=== PATIENT | female | born 1970 | race Caucasian/White ===

== ENCOUNTER 2018-06-02 21:18 | Emergency (ER) | payer OTHER ==
[2018-06-02] MEDS ORDERED: MORPHINE 4 MG/ML SYR ONE (22:12)
[2018-06-02] MEDS ORDERED: PROMETHAZINE 25 MG/ML VIAL ONE (22:12)
[2018-06-02] MEDS ORDERED: NA CHLORIDE 0.9% 1,000 ML ONE (22:13)
[2018-06-02 22:47] LABS: Urine Blood NEGATIVE (NEG); Urine Glucose NEGATIVE (NEG); Urine Protein NEGATIVE (NEG); Urine Specific Gravity 1.015 (1.005-1.030); Urine pH 6.5 (5.0-7.0)
[2018-06-02 23:02] LABS: Absolute Lymphocytes (CBC) 2.9 K/uL (0.7-4.9); Absolute Monocytes 0.7 K/uL (0.1-1.3); Absolute Neutrophil 6.5 K/uL (1.8-8.0); Basophils % 0.4 % (0-1.3); Eosinophils % 3.4 % (0-4.4); Hematocrit 33.6 % (36.0-45.0); Lymphocytes % 27.6 % (15.3-44.8); MCH 30.2 pg (27.0-35.0); MPV 7.7 fL (7.6-11.3); Monocytes % 6.7 % (3.3-12.3); RBC Red Blood Cell Count 3.82 M/uL (3.86-4.86)
[2018-06-02 23:11] LABS: ALT/SGPT 10 U/L (12-78); AST/SGOT 14 U/L (15-37); Alkaline Phosphatase 119 U/L (45-117); BUN Blood Urea Nitrogen 8 mg/dL (7-18); Bicarbonate 24 mmol/L (21-32); Bilirubin Total 0.1 mg/dL (0.2-1.0); Glucose Level 99 mg/dL (74-106); Potassium 3.3 mmol/L (3.5-5.1); Protein, Total 6.9 g/dL (6.4-8.2); Sodium Level 142 mmol/L (136-145)
--- NOTE | 2018-06-02 23:26 | EDPHYS ---
Physician Documentation [facility] Name: Lorie Beal Age: 48 yrs Sex: Female : 1970 Arrival Date: 06/02/2018 Time: 21:21 Bed 7 Private MD: Musa Aguirre T ED Physician Akira Romero HPI: 06/02 22:01 This 48 yrs old Female presents to ER via Ambulatory with complaints of miguel Headache. 22:01 The patient complains of pain to the forehead, left temporal area and right temporal miguel area. The patient describes the headache as constant. Onset: The symptoms/episode began/occurred this morning, today. Associated signs and symptoms: Pertinent positives: nausea, vomiting. Severity of symptoms: At its worst the pain was moderate, in the emergency department the pain is unchanged. Headache History: The patient has had previous headaches and this one is similar to previous episodes. The symptoms are alleviated by nothing. remaining still, the symptoms are aggravated by lights, movement, noise, stress. The patient has experienced similar episodes in the past, multiple times. 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/2017, pt stated cycles are irregular ak1 Historical: - Allergies: 21:49 prasterone (DHEA); ak1 21:49 Stadol; ak1 21:49 Zoloft; ak1 21:49 Toradol; ak1 21:49 Zofran; ak1 - Home Meds: 21:49 Ziac 5-6.25 mg Oral tab 1 tab once daily [Active]; Valium 5 mg Oral tab PRN Pain ak1 [Active]; Promethazine Oral [Active]; paroxetine Oral [Active]; Norvasc 5 mg Oral tab 1 tab once daily [Active]; losartan Oral [Active]; lisinopril Oral 1 tab once daily [Active]; diazepam Oral [Active]; amlodipine oral [Active]; - PMHx: 21:49 Hypertension; Migraines; ak1 - PSHx: 21:49 Cholecystectomy; ; ak1 - Immunization history:: Adult Immunizations unknown. - Social history:: Smoking status: Patient/guardian denies using tobacco. - Ebola Screening: : No symptoms or risks identified at this time. - Family history:: not pertinent. ROS: 22:01 Constitutional: Negative for fever, chills, and weight loss, Eyes: Negative for injury, miguel pain, redness, and discharge, ENT: Negative for injury, pain, and discharge, Neck: Negative for injury, pain, and swelling, Cardiovascular: Negative for chest pain, palpitations, and edema, Respiratory: Negative for shortness of breath, cough, wheezing, and pleuritic chest pain, Abdomen/GI: Negative for abdominal pain, nausea, vomiting, diarrhea, and constipation, Back: Negative for injury and pain, : Negative for injury, bleeding, discharge, and swelling, MS/Extremity: Negative for injury and deformity, Skin: Negative for injury, rash, and discoloration, Psych: Negative for depression, anxiety, suicide ideation, homicidal ideation, and hallucinations, Allergy/Immunology: Negative for hives, rash, and allergies, Endocrine: Negative for neck swelling, polydipsia, polyuria, polyphagia, and marked weight changes, Hematologic/Lymphatic: Negative for swollen nodes, abnormal bleeding, and unusual bruising. 22:01 Neuro: Positive for headache. Exam: 22:01 Constitutional: This is a well developed, well nourished patient who is awake, alert, miguel and in no acute distress. Head/Face: Normocephalic, atraumatic. Eyes: Pupils equal round and reactive to light, extra-ocular motions intact. Lids and lashes normal. Conjunctiva and sclera are non-icteric and not injected. Cornea within normal limits. Periorbital areas with no swelling, redness, or edema. ENT: Nares patent. No nasal discharge, no septal abnormalities noted. Tympanic membranes are normal and external auditory canals are clear. Oropharynx with no redness, swelling, or masses, exudates, or evidence of obstruction, uvula midline. Mucous membranes moist. Neck: Trachea midline, no thyromegaly or masses palpated, and no cervical lymphadenopathy. Supple, full range of motion without nuchal rigidity, or vertebral point tenderness. No Meningismus. Chest/axilla: Normal chest wall appearance and motion. Nontender with no deformity. No lesions are appreciated. Cardiovascular: Regular rate and rhythm with a normal S1 and S2. No gallops, murmurs, or rubs. Normal PMI, no JVD. No pulse deficits. Respiratory: Lungs have equal breath sounds bilaterally, clear to auscultation and percussion. No rales, rhonchi or wheezes noted. No increased work of breathing, no retractions or nasal flaring. Abdomen/GI: Soft, non-tender, with normal bowel sounds. No distension or tympany. No guarding or rebound. No evidence of tenderness throughout. Back: No spinal tenderness. No costovertebral tenderness. Full range of motion. Pelvic Exam: Normal external genitalia. Speculum exam with closed cervical os, no discharge or bleeding noted. Bimanual exam with normal adnexa, no adnexal or cervical motion tenderness. Normal uterus. Skin: Warm, dry with normal turgor. Normal color with no rashes, no lesions, and no evidence of cellulitis. MS/ Extremity: Pulses equal, no cyanosis. Neurovascular intact. Full, normal range of motion. Neuro: Awake and alert, GCS 15, oriented to person, place, time, and situation. Cranial nerves II-XII grossly intact. Motor strength 5/5 in all extremities. Sensory grossly intact. Cerebellar exam normal. Normal gait. Vital Signs: 21:49 BP 145 / 94; Pulse 88; Resp 16; Temp 98.3; Pulse Ox 97% on R/A; Weight 83.91 kg (R); ak1 Height 5 ft. 1 in. (154.94 cm) (R); Pain 10/10; 22:49 BP 138 / 78; Pulse 88; Resp 16; Pulse Ox 96% on R/A; aa1 23:40 BP 146 / 96; Pulse 81; Resp 16; Pulse Ox 97% on R/A; Pain 5/10; aa1 21:49 Body Mass Index 34.96 (83.91 kg, 154.94 cm) ak MDM: 21:49 Patient medically screened. [facility] 22:03 Data reviewed: vital signs, nurses notes, lab test result(s). [facility] 06/02 21:59 Order name: CBC with Diff; Complete Time: 23:24 [facility] 06/02 21:59 Order name: Comprehensive Metabolic Panel; Complete Time: 23:24 [facility] 06/02 21:59 Order name: Urine Culture [facility] 06/02 22:41 Order name: Urine Dipstick--Ancillary (enter results); Complete Time: 23:24 [facility] 06/02 22:41 Order name: Urine --Ancillary (enter results); Complete Time: 23:24 [facility] 06/02 21:59 Order name: Urine Dipstick-Ancillary (obtain specimen); Complete Time: 22:39 [facility] 06/02 21:59 Order name: Urine Test (obtain specimen); Complete Time: 22:39 [facility] 06/02 23:25 Order name: PO challenge: juice; Complete Time: 23:41 [facility] Administered Medications: 22:25 Drug: NS 0.9% 1000 ml Route: IV; Rate: 1 bolus; Site: right forearm; aa1 23:42 Follow up: IV Status: Completed infusion aa1 22:25 Drug: Phenergan 12.5 mg Route: IVP; Site: right forearm; aa1 23:41 Follow up: Response: No adverse reaction; Nausea is decreased aa1 22:25 Drug: morphine 4 mg Route: IVP; Site: right forearm; aa1 23:41 Follow up: Response: No adverse reaction; Pain is decreased aa1 Disposition: 06/02/18 23:25 Discharged to Home. Impression: Migraine without aura, Essential (primary) hypertension, Hypokalemia. - Condition is Stable. - Discharge Instructions: Potassium Content of Foods, Migraine Headache, Recurrent Migraine Headache, Hypertension, Hypertension, Sylx-vs-Lrdb, Migraine Headache, Gnes-qi-Nkux, How to Take Your Blood Pressure, Gtmw-yg-Kitg, Recurrent Migraine Headache, Dnqf-vd-Kclk, Hypokalemia, Managing Your Hypertension. - Prescriptions for Fioricet with Codeine 50- 325-40-30 mg Oral capsule - take 1 capsule by ORAL route every 4 hours as needed not to exceed 6 capsules per 24hrs; 26 capsule. promethazine 25 mg Oral Tablet - take 1 tablet by ORAL route every 6 hours As needed; 20 tablet. - Work release form, Medication Reconciliation Form, Thank You Letter, Antibiotic Education, Prescription Opioid Use form. - Follow up: Musa Aguirre; When: 2 - 3 days; Reason: Recheck today's complaints, Continuance of care, Re-evaluation by your physician. Follow up: Pedro Cash; When: 2 - 3 days; Reason: Recheck today's complaints, Re-evaluation by your physician. - Problem is new. - Symptoms have improved. Signatures: Dispatcher [employer] EDAdeola Barksdale RN RN aa1 Akira Romero MD MD cha Krenek, Amber RN RN ak1 Corrections: (The following items were deleted from the chart) 23:25 23:25 06/02/2018 23:25 Discharged to Home. Impression: Migraine without aura; Essential miguel (primary) hypertension. Condition is Stable. Discharge Instructions: Migraine Headache, Recurrent Migraine Headache, Hypertension, Hypertension, Njaq-fv-Dydx, Migraine Headache, Qvxo-ma-Cyqr, How to Take Your Blood Pressure, Hjzg-wp-Hsbi, Recurrent Migraine Headache, Umwo-dp-Pkkm, Managing Your Hypertension. Prescriptions for Fioricet with Codeine 38-607-03-30 mg Oral capsule - take 1 capsule by ORAL route every 4 hours as needed not to exceed 6 capsules per 24hrs; 26 capsule, promethazine 25 mg Oral Tablet - take 1 tablet by ORAL route every 6 hours As needed; 20 tablet. and Forms are Medication Reconciliation Form, Thank You Letter, Antibiotic Education, Prescription Opioid Use. Follow up: Musa Aguirre; When: 2 - 3 days; Reason: Recheck today's complaints, Continuance of care, Re-evaluation by your physician. Follow up: Pedro Cash; When: 2 - 3 days; Reason: Recheck today's complaints, Re-evaluation by your physician. Problem is new. Symptoms have improved. miguel 23:44 23:25 06/02/2018 23:25 Discharged to Home. Impression: Migraine without aura; Essential aa1 (primary) hypertension; Hypokalemia. Condition is Stable. Discharge Instructions: Migraine Headache, Recurrent Migraine Headache, Hypertension, Hypertension, Voeb-vg-Rjnf, Migraine Headache, Lutk-sm-Jdvm, How to Take Your Blood Pressure, Ljzq-ki-Izcf, Recurrent Migraine Headache, Iego-ou-Gpik, Managing Your Hypertension. Prescriptions for Fioricet with Codeine [id number] mg Oral capsule - take 1 capsule by ORAL route every 4 hours as needed not to exceed 6 capsules per 24hrs; 26 capsule, promethazine 25 mg Oral Tablet - take 1 tablet by ORAL route every 6 hours As needed; 20 tablet. and Forms are Medication Reconciliation Form, Thank You Letter, Antibiotic Education, Prescription Opioid Use. Follow up: Musa Aguirre; When: 2 - 3 days; Reason: Recheck today's complaints, Continuance of care, Re-evaluation by your physician. Follow up: Pedro Cash; When: 2 - 3 days; Reason: Recheck today's complaints, Re-evaluation by your physician. Problem is new. Symptoms have improved. miguel
--- NOTE | 2018-06-02 23:26 | ER ---
Nurse's Notes [facility] Name: Lorie Beal Age: 48 yrs Sex: Female : 1970 Arrival Date: 06/02/2018 Time: 21:21 Bed 7 Private MD: Musa Aguirre T Diagnosis: Migraine without aura;Essential (primary) hypertension;Hypokalemia Presentation: 06/02 21:45 Presenting complaint: Patient states: headache since Friday night. pt stated she has ak1 been using promethazine and ibuprofen with no relief. pt stated she has hx migrantes, has no neurologist currently. Transition of care: patient was not received from another setting of care. Onset of symptoms was May 31, 2018. Risk Assessment: Do you want to hurt yourself or someone else? Patient reports no desire to harm self or others. Care prior to arrival: None. 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 AGENT: 21:49 LMP 11/2017, pt stated cycles are irregular ak1 Historical: - Allergies: 21:49 prasterone (DHEA); ak1 21:49 Stadol; ak1 21:49 Zoloft; ak1 21:49 Toradol; ak1 21:49 Zofran; ak1 - Home Meds: 21:49 Ziac 5-6.25 mg Oral tab 1 tab once daily [Active]; Valium 5 mg Oral tab PRN Pain ak1 [Active]; Promethazine Oral [Active]; paroxetine Oral [Active]; Norvasc 5 mg Oral tab 1 tab once daily [Active]; losartan Oral [Active]; lisinopril Oral 1 tab once daily [Active]; diazepam Oral [Active]; amlodipine oral [Active]; - PMHx: 21:49 Hypertension; Migraines; ak1 - PSHx: 21:49 Cholecystectomy; ; ak1 - Immunization history:: Adult Immunizations unknown. - Social history:: Smoking status: Patient/guardian denies using tobacco. - Ebola Screening: : No symptoms or risks identified at this time. - Family history:: not pertinent. Screenin:00 Abuse screen: Denies threats or abuse. Denies injuries from another. Nutritional aa1 screening: No deficits noted. Tuberculosis screening: No symptoms or risk factors identified. Fall Risk None identified. Assessment: 22:00 General: Appears in no apparent distress. comfortable, Behavior is calm, cooperative, aa1 appropriate for age. Pain: Complains of pain in right temporal area and left temporal area and forehead Pain currently is 9 out of 10 on a pain scale. Quality of pain is described as aching, throbbing, Pain began 2-3 days ago. Is continuous. Neuro: Level of Consciousness is awake, alert, obeys commands, Oriented to person, place, time, situation, Moves all extremities. Full function Gait is steady, Speech is normal, Pupils are PERRLA, Reports headache photophobia. Cardiovascular: Denies chest pain, diaphoresis, palpitations, shortness of breath. Respiratory: Airway is patent Respiratory effort is even, unlabored, Respiratory pattern is regular, symmetrical. GI: Reports nausea, vomiting. : No signs and/or symptoms were reported regarding the genitourinary system. EENT: No signs and/or symptoms were reported regarding the EENT system. Derm: Skin is intact, is healthy with good turgor, Skin is pink, warm \T\ dry. Musculoskeletal: Circulation, motion, and sensation intact. Capillary refill < 3 seconds. 23:43 Reassessment: Patient appears in no apparent distress at this time. Patient is alert, aa1 oriented x 3, equal unlabored respirations, skin warm/dry/pink. Discussed d/c \T\ f/u instructions with pt; denies questions or concerns at this time Patient states feeling better. Vital Signs: 21:49 BP 145 / 94; Pulse 88; Resp 16; Temp 98.3; Pulse Ox 97% on R/A; Weight 83.91 kg (R); ak1 Height 5 ft. 1 in. (154.94 cm) (R); Pain 10/10; 22:49 BP 138 / 78; Pulse 88; Resp 16; Pulse Ox 96% on R/A; aa1 23:40 BP 146 / 96; Pulse 81; Resp 16; Pulse Ox 97% on R/A; Pain 5/10; aa1 21:49 Body Mass Index 34.96 (83.91 kg, 154.94 cm) ak1 ED Course: 21:21 Patient arrived in ED. es 21:22 Musa Aguirre MD is Private Physician. es 21:47 Triage completed. ak1 21:49 Akira Romero MD is Attending Physician. [facility] 21:49 Arm band placed on Patient placed in an exam room, on a stretcher, Patient notified of ak1 wait time. 21:51 Patient has correct armband on for positive identification. Bed in low position. Call ak1 light in reach. Side rails up X 1. 22:03 Adeola Escalante, RN is Primary Nurse. aa1 22:25 Initial lab(s) drawn, by ar, sent to lab. Inserted saline lock: 22 gauge in right aa1 forearm, using aseptic technique. Blood collected. 22:30 Urine collected: clean catch specimen, clear. aa1 23:25 Musa Aguirre MD is Referral Physician. miguel 23:25 Pedro Cash MD is Referral Physician. [facility] 23:43 No provider procedures requiring assistance completed. IV discontinued, intact, aa1 bleeding controlled, No redness/swelling at site. Pressure dressing applied. Administered Medications: 22:25 Drug: NS 0.9% 1000 ml Route: IV; Rate: 1 bolus; Site: right forearm; aa1 23:42 Follow up: IV Status: Completed infusion aa1 22:25 Drug: Phenergan 12.5 mg Route: IVP; Site: right forearm; aa1 23:41 Follow up: Response: No adverse reaction; Nausea is decreased aa1 22:25 Drug: morphine 4 mg Route: IVP; Site: right forearm; aa1 23:41 Follow up: Response: No adverse reaction; Pain is decreased aa1 Outcome: 23:25 Discharge ordered by . miguel 23:43 Discharged to home ambulatory. aa1 23:43 Condition: good 23:43 Discharge instructions given to patient, Instructed on discharge instructions, follow up and referral plans. medication usage, Demonstrated understanding of instructions, follow-up care, medications, Prescriptions given X 2. 23:44 Patient left the ED. aa1 Signatures: Adeola Escalante, RN RN aa1 Akira Romero MD MD cha Salyer, Edna es Krenek, Amber RN RN ak1
[2018-06-02 23:51] VITALS: TEMP 98.3
[2018-06-02 23:52] VITALS: BP 138/78; O2SAT 96
== END 2018-06-02 23:44 | disposition home or self-care (01) ==
LOC: ER 21:18
DX: G43.009 Migraine without aura, not intractable, without status migrainosus (principal); I10 Essential (primary) hypertension; E87.6 Hypokalemia; Z88.5 Allergy status to narcotic agent; Z88.6 Allergy status to analgesic agent; Z88.8 Allergy status to other drugs, medicaments and biological substances
CPT/HCPCS: 36415; 80053; 81003; 81025; 85025; 87086; 87088; J2550; J7030; 96361; 96374; 96375; 99284

== ENCOUNTER 2018-10-11 11:06 | Emergency (ER) | payer OTHER ==
[2018-10-11] MEDS ORDERED: ENALAPRILAT 1.25 MG/ML VIAL IV ONE ×2 (12:16→13:06)
[2018-10-11] MEDS ORDERED: LISINOPRIL 5 MG TAB ONE (12:16)
--- NOTE | 2018-10-11 12:18 | RAD REPORT ---
EXAM DESCRIPTION: RAD - Chest Single View - 10/11/2018 12:02 pm CLINICAL HISTORY: Right-sided chest pain COMPARISON: October 2017 TECHNIQUE: AP portable chest image was obtained 1154 hours . FINDINGS: Lungs are clear. Heart and vasculature are normal. No measurable pleural effusion and no p neumothorax. No acute bony abnormality seen. No acute aortic findings suspected. IMPRESSION: No acute cardiopulmonary process. No significant interval change.
[2018-10-11 12:21] LABS: Absolute Lymphocytes (CBC) 2.1 K/uL (0.7-4.9); Absolute Monocytes 0.6 K/uL (0.1-1.3); Absolute Neutrophil 6.7 K/uL (1.8-8.0); Basophils % 1.7 % (0-1.3); Eosinophils % 6.1 % (0-4.4); Hematocrit 37.9 % (36.0-45.0); Lymphocytes % 20.4 % (15.3-44.8); MPV 8.1 fL (7.6-11.3); Monocytes % 5.8 % (3.3-12.3); RBC Red Blood Cell Count 4.36 M/uL (3.86-4.86)
[2018-10-11 12:22] LABS: Protime INR 1.03
[2018-10-11 12:45] LABS: ALT/SGPT 19 U/L (12-78); AST/SGOT 21 U/L (15-37); Albumin 3.7 g/dL (3.4-5.0); Alkaline Phosphatase 162 U/L (45-117); BUN Blood Urea Nitrogen 8 mg/dL (7-18); Bicarbonate 28 mmol/L (21-32); Bilirubin Direct < 0.1 mg/dL (0-0.2); Bilirubin Total 0.2 mg/dL (0.2-1.0); Glucose Level 94 mg/dL (74-106); Magnesium 1.6 mg/dL (1.8-2.4); NT PRO-BNP 28 pg/mL (<125); Potassium 3.3 mmol/L (3.5-5.1); Protein, Total 7.8 g/dL (6.4-8.2); Sodium Level 141 mmol/L (136-145); Troponin (Emerg Dept Use Only) < 0.02 ng/mL (0.0-0.045)
[2018-10-11 13:04] LABS: Blood Morphology Comment NOT SEEN (NOT SEEN); Platelet Estimate ADEQ
[2018-10-11] MEDS ORDERED: FENTANYL CITR 100 MCG/2 ML ONE (13:06)
--- NOTE | 2018-10-11 14:49 | ER ---
Nurse's Notes [facility] Name: Lorie Beal Age: 48 yrs Sex: Female : 1970 Arrival Date: 10/11/2018 Time: 11:07 Bed 18 Private MD: Musa Aguirre T Diagnosis: Chest pain, unspecified Presentation: 10/11 11:14 Presenting complaint: Patient states: Started having right sided chest pain last night, rb1 pain 10/10. C/o right arm weakness, and pain in the right side of her neck, and SOB. Transition of care: patient was not received from another setting of care. Onset of symptoms was October 10, 2018. Risk Assessment: Do you want to hurt yourself or someone else? Patient reports no desire to harm self or others. Care prior to arrival: None. 11:14 Method Of Arrival: Wheelchair rb1 11:14 Acuity: KATELYN 3 rb1 11:40 Initial Sepsis Screen: Does the patient meet any 2 criteria? HR > 90 bpm. No. Patient's em initial sepsis screen is negative. Does the patient have a suspected source of infection? No. Patient's initial sepsis screen is negative. Triage Assessment: 11:14 General: Appears uncomfortable, Behavior is calm, cooperative. Pain: Complains of pain rb1 in anterior aspect of right upper chest Pain radiates to right side of neck Pain currently is 10 out of 10 on a pain scale. Pain began 1 day ago. Neuro: Level of Consciousness is awake, alert, obeys commands, Oriented to person, place, time, situation, Reports weakness in right arm. Cardiovascular: Capillary refill < 3 seconds is brisk in bilateral fingers. Respiratory: Airway is patent Respiratory effort is even, unlabored, Respiratory pattern is regular, symmetrical. GI: Reports nausea. : No signs and/or symptoms were reported regarding the genitourinary system. Derm: Skin is pink, warm \T\ dry. Musculoskeletal: Range of motion: intact in all extremities. 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 N/A - Irregular menses rb1 Historical: - Allergies: 11:14 prasterone (DHEA); rb1 11:14 Stadol; rb1 11:14 Toradol; rb1 11:14 Zoloft; rb1 11:14 Zofran; rb1 - Home Meds: 11:14 Paxil 20 mg Oral tab 3 tabs once daily [Active]; rb1 11:57 amlodipine oral [Active]; diazepam Oral [Active]; lisinopril Oral 1 tab once daily la1 [Active]; losartan Oral [Active]; Norvasc 5 mg Oral tab 1 tab once daily [Active]; paroxetine Oral [Active]; Promethazine Oral [Active]; Valium 5 mg Oral tab PRN Pain [Active]; Ziac 5-6.25 mg Oral tab 1 tab once daily [Active]; - PMHx: 11:14 Hypertension; Migraines; rb1 - PSHx: 11:14 Cholecystectomy; ; rb1 - Immunization history:: Adult Immunizations up to date. - Ebola Screening: : Patient negative for fever greater than or equal to 101.5 degrees Fahrenheit, and additional compatible Ebola Virus Disease symptoms. Screenin:14 Abuse screen: Denies threats or abuse. Nutritional screening: No deficits noted. rb1 Tuberculosis screening: No symptoms or risk factors identified. 11:14 Fall Risk None identified. rb1 Assessment: 11:14 General: See triage assessment.. rb1 11:37 General: Appears in no apparent distress. uncomfortable, Behavior is calm, cooperative, em appropriate for age, Denies fever. Pain: Complains of pain in chest Pain radiates to right arm Quality of pain is described as tight Pain began 1 day ago. Neuro: Level of Consciousness is awake, alert, obeys commands, Oriented to person, place, time, situation, Reports headache Denies dizziness. Cardiovascular: Reports chest pain, nausea, shortness of breath, Patient's skin is warm and dry. Rhythm is sinus rhythm. Respiratory: Airway is patent Respiratory effort is even, unlabored, Respiratory pattern is regular, symmetrical. GI: Abdomen is flat. : No signs and/or symptoms were reported regarding the genitourinary system. Derm: Skin is intact, is healthy with good turgor, Skin is pink, warm \T\ dry. Musculoskeletal: Range of motion: intact in all extremities. 11:50 Reassessment: i agree with above assessment by Cyrus Kat LVN. iw 12:48 Reassessment: Patient appears in no apparent distress at this time. Patient and/or em family updated on plan of care and expected duration. Pain level reassessed. Patient is alert, oriented x 3, equal unlabored respirations, skin warm/dry/pink. pt reports chest pain, provider notified. 14:12 Reassessment: Patient appears in no apparent distress at this time. Patient and/or em family updated on plan of care and expected duration. Pain level reassessed. Patient is alert, oriented x 3, equal unlabored respirations, skin warm/dry/pink. rates pain 8/10 Patient states feeling better. 15:07 Reassessment: Patient appears in no apparent distress at this time. Patient and/or em family updated on plan of care and expected duration. Pain level reassessed. Patient is alert, oriented x 3, equal unlabored respirations, skin warm/dry/pink. Vital Signs: 11:14 BP 197 / 130; Pulse 96; Resp 20; Pulse Ox 98% on R/A; Weight 81.65 kg (R); Height 5 ft. rb1 1 in. (154.94 cm) (R); Pain 10/10; 11:39 BP 187 / 100; Pulse 95; Resp 21; Pulse Ox 99% on R/A; Pain 10/10; em 12:47 BP 160 / 106; Pulse 77; Resp 18; Pulse Ox 99% on R/A; em 14:00 BP 149 / 93; Pulse 80; Resp 18; Pulse Ox 99% on R/A; Pain 8/10; em 14:52 BP 145 / 85; Pulse 80; Resp 16; Pulse Ox 99% on R/A; Pain 10/10; em 11:14 Body Mass Index 34.01 (81.65 kg, 154.94 cm) rb1 ED Course: 11:07 Patient arrived in ED. sb2 11:07 Musa Aguirre MD is Private Physician. sb2 11:14 Patient has correct armband on for positive identification. Bed in low position. Call rb1 light in reach. Side rails up X 1. night monitor on. Pulse ox on. NIBP on. 11:14 Patient maintains SpO2 saturation greater than 95% on room air. rb1 11:19 Riky Morse MD is Attending Physician. gs 11:20 Triage completed. rb1 11:26 EKG done, by ED staff, reviewed by Riky Morse MD. jp3 11:27 Cyrus Kat LVN is Primary Nurse. em 11:40 Arm band placed on. em 11:51 Missed attempt(s): 20 gauge 22 gauge in left in right wrist. forearm. Bleeding jp3 controlled, band aid applied, catheter tip intact. 11:57 Warm blanket given. Pillow given. jp3 12:01 X-ray completed. Portable x-ray completed in exam room. Patient tolerated procedure sg4 well. 12:10 Initial lab(s) drawn, by me, sent to lab. Inserted saline lock: 22 gauge in left em antecubital area, using aseptic technique. Blood collected. 12:39 Lights dimmed. Warm blanket given. jp3 13:42 Repeat lab(s) drawn. by me, sent to lab. jp3 13:43 Troponin (emerg Dept Use Only) Sent. jp3 15:07 No provider procedures requiring assistance completed. IV discontinued, intact, em bleeding controlled, No redness/swelling at site. Pressure dressing applied. Administered Medications: 12:10 Drug: Norvasc 5 mg Route: PO; em 12:55 Follow up: Response: No adverse reaction; Blood pressure is unchanged em 12:15 Drug: Enalaprilat 1.25 mg Route: IV; Rate: calculated rate; Site: left antecubital; iw 12:55 Follow up: Response: No adverse reaction; Blood pressure is unchanged em 13:10 Drug: fentaNYL (PF) 50 mcg Route: IVP; Site: left antecubital; iw 14:11 Follow up: Response: No adverse reaction; Pain is decreased em 13:11 Drug: Enalaprilat 1.25 mg Route: IV; Rate: calculated rate; Site: left antecubital; iw 14:11 Follow up: Response: No adverse reaction; Blood pressure is lowered em 15:01 Drug: [place] 10 mg-325 mg 1 tabs Route: PO; iw 15:07 Follow up: Response: Medication administered at discharge. em Outcome: 14:48 Discharge ordered by . gs 15:10 Discharged to home ambulatory. em 15:10 Condition: good 15:10 Discharge instructions given to patient, Instructed on discharge instructions, follow up and referral plans. Demonstrated understanding of instructions, follow-up care. 15:11 Patient left the ED. em Signatures: Cyrus Kat, NARCOTICS INVESTIGATOR NARCOTICS INVESTIGATOR em Kristen Rouse RN RN iw Marlo Blue RN RN la1 Rossana Tyson RN RN rb1 Riky Morse MD MD Marybeth Torres Jacob jp3 Dalia Armendariz sg4 Corrections: (The following items were deleted from the chart) 12:49 12:47 BP 147 / 89; Pulse 77bpm; Resp 18bpm; Pulse Ox 99% RA; em em
--- NOTE | 2018-10-11 14:49 | EDPHYS ---
Physician Documentation [facility] Name: Lorie Beal Age: 48 yrs Sex: Female : 1970 Arrival Date: 10/11/2018 Time: 11:07 Bed 18 Private MD: Musa Aguirre T ED Physician Riky Morse PROFESSOR OF ENVIRONMENTAL SCIENCE: 10/11 11:14 LMP N/A - Irregular menses rb1 Historical: - Allergies: 11:14 prasterone (DHEA); rb1 11:14 Stadol; rb1 11:14 Toradol; rb1 11:14 Zoloft; rb1 11:14 Zofran; rb1 - Home Meds: 11:14 Paxil 20 mg Oral tab 3 tabs once daily [Active]; rb1 11:57 amlodipine oral [Active]; diazepam Oral [Active]; lisinopril Oral 1 tab once daily la1 [Active]; losartan Oral [Active]; Norvasc 5 mg Oral tab 1 tab once daily [Active]; paroxetine Oral [Active]; Promethazine Oral [Active]; Valium 5 mg Oral tab PRN Pain [Active]; Ziac 5-6.25 mg Oral tab 1 tab once daily [Active]; - PMHx: 11:14 Hypertension; Migraines; rb1 - PSHx: 11:14 Cholecystectomy; ; rb1 - Immunization history:: Adult Immunizations up to date. - Ebola Screening: : Patient negative for fever greater than or equal to 101.5 degrees Fahrenheit, and additional compatible Ebola Virus Disease symptoms. Vital Signs: 11:14 BP 197 / 130; Pulse 96; Resp 20; Pulse Ox 98% on R/A; Weight 81.65 kg (R); Height 5 ft. rb1 1 in. (154.94 cm) (R); Pain 10/10; 11:39 BP 187 / 100; Pulse 95; Resp 21; Pulse Ox 99% on R/A; Pain 10/10; em 12:47 BP 160 / 106; Pulse 77; Resp 18; Pulse Ox 99% on R/A; em 14:00 BP 149 / 93; Pulse 80; Resp 18; Pulse Ox 99% on R/A; Pain 8/10; em 14:52 BP 145 / 85; Pulse 80; Resp 16; Pulse Ox 99% on R/A; Pain 10/10; em 11:14 Body Mass Index 34.01 (81.65 kg, 154.94 cm) rb1 MDM: 11:33 Patient medically screened. 10/11 11:34 Order name: Basic Metabolic Panel 10/11 11:34 Order name: CBC with Diff 10/11 11:34 Order name: LFT's 10/11 11:34 Order name: Magnesium 10/11 11:34 Order name: NT PRO-BNP 10/11 11:34 Order name: PT-INR 10/11 11:34 Order name: Troponin (emerg Dept Use Only) 10/11 11:34 Order name: D-Dimer 10/11 12:24 Order name: Protime (+INR); Complete Time: 12:53 EDMS 10/11 12:24 Order name: D-Dimer; Complete Time: 12:53 EDMS 10/11 12:26 Order name: CBC with Automated Diff; Complete Time: 13:24 EDMS 10/11 12:45 Order name: Basic Metabolic Panel; Complete Time: 12:53 EDMS 10/11 12:45 Order name: Liver (Hepatic) Function; Complete Time: 12:53 EDMS 10/11 12:45 Order name: Troponin (Emerg Dept Use Only); Complete Time: 12:53 EDMS 10/11 11:34 Order name: XRAY Chest (1 view) 10/11 11:34 Order name: EKG; Complete Time: 11:35 10/11 11:34 Order name: Cardiac monitoring; Complete Time: 11:44 10/11 11:34 Order name: EKG - Nurse/Tech; Complete Time: 11:44 10/11 11:34 Order name: IV Saline Lock; Complete Time: 12:00 10/11 12:18 Order name: RAD; Complete Time: 12:53 EDMS 10/11 12:45 Order name: NT PRO-BNP; Complete Time: 12:53 EDMS 10/11 12:45 Order name: Magnesium; Complete Time: 12:53 EDMS 10/11 13:05 Order name: Manual Differential; Complete Time: 13:24 EDMS 10/11 13:25 Order name: Troponin (emerg Dept Use Only) 10/11 14:02 Order name: Troponin (Emerg Dept Use Only); Complete Time: 14:42 EDMS 10/11 11:34 Order name: Labs collected and sent; Complete Time: 12:00 10/11 11:34 Order name: O2 Per Protocol; Complete Time: 11:44 gs 10/11 11:34 Order name: O2 Sat Monitoring; Complete Time: 11:44 gs Administered Medications: 12:10 Drug: Norvasc 5 mg Route: PO; em 12:55 Follow up: Response: No adverse reaction; Blood pressure is unchanged em 12:15 Drug: Enalaprilat 1.25 mg Route: IV; Rate: calculated rate; Site: left antecubital; iw 12:55 Follow up: Response: No adverse reaction; Blood pressure is unchanged em 13:10 Drug: fentaNYL (PF) 50 mcg Route: IVP; Site: left antecubital; iw 14:11 Follow up: Response: No adverse reaction; Pain is decreased em 13:11 Drug: Enalaprilat 1.25 mg Route: IV; Rate: calculated rate; Site: left antecubital; iw 14:11 Follow up: Response: No adverse reaction; Blood pressure is lowered em 15:01 Drug: [place] 10 mg-325 mg 1 tabs Route: PO; iw 15:07 Follow up: Response: Medication administered at discharge. em Disposition: 10/11/18 14:48 Discharged to Home. Impression: Chest pain, unspecified. - Condition is Stable. - Discharge Instructions: Nonspecific Chest Pain. - Work release form, Medication Reconciliation Form, Thank You Letter, Antibiotic Education, Prescription Opioid Use form. - Follow up: Private Physician; When: 2 - 3 days; Reason: Re-evaluation by your physician. Addendum: 11/02/2018 12:59 Addendum: cc-chest pain hpi-onset night prior to date of service, located right side, g s worsens with movement of neck and deep breathing . says right arm feels heavy.+sob. nurses notes reviewed and agree pmh allergies reviewed sochx-lives at home. pe- vs hypertensive o/w vss gen-no distress, awake head- normal no mass ent- pharynx no erythema no mass cv-rrr no murmur p- lungs clear no distress gi- ab soft non tender skin no rash normal temp ms- nl pulses in extremities no edema or deformity. neuro-cn,motor,sensory no deficits psych-normal mood. EKG-NSR, no st changes nl intervals mdm-htn heart disease, cad, pe, ns chest pain course workup negative, pain resolved explained results need for followup. Signatures: Dispatcher [employer] EDMS Kat, Cyrus, REVIEW ENGINEER REVIEW ENGINEER em Kristen Rouse, RN RN iw Marlo Blue RN RN la1 Rossana Tyson, RN RN rb1 Riky Morse MD MD gs Corrections: (The following items were deleted from the chart) 10/11 14:47 14:43 EKG - Nurse/Tech ordered. [facility] 15:11 14:48 10/11/2018 14:48 Discharged to Home. Impression: Chest pain, unspecified. em Condition is Stable. Forms are Medication Reconciliation Form, Thank You Letter, Antibiotic Education, Prescription Opioid Use. Follow up: Private Physician; When: 2 - 3 days; Reason: Re-evaluation by your physician.
[2018-10-11] MEDS ORDERED: HYDROCODONE/APAP 5/325 MG TAB ONE (15:01)
[2018-10-11] MEDS ORDERED: HYDROCODONE/APAP 10/325 TAB ONE (15:07)
[2018-10-11 15:27] VITALS: O2SAT 99
[2018-10-11 15:28] VITALS: BP 145/85
--- NOTE | 2018-10-12 07:05 | EKG ---
Test Date: 2018-10-11 Test Time: 11:22:58 Personnel Research Psychologist: DANIKA MEASUREMENT RESULTS: Intervals: Rate: 85 WI: 154 QRSD: 70 QT: 398 QTc: 473 [place]: P: 61 WI: 154 QRS: 17 T: 7 INTERPRETIVE STATEMENTS: Normal sinus rhythm Nonspecific ST and T wave abnormality Prolonged QT Abnormal ECG Compared to ECG 09/26/2015 11:21:38 ST (T wave) deviation now present T-wave abnormality no longer present Electronically Signed On 10-12-18 07:04:26 GUINEA PIG BREEDER by Huy Warren
== END 2018-10-11 15:11 | disposition home or self-care (01) ==
LOC: ER 11:06
DX: R07.9 Chest pain, unspecified (principal); I10 Essential (primary) hypertension; Z88.5 Allergy status to narcotic agent; Z88.6 Allergy status to analgesic agent; Z88.8 Allergy status to other drugs, medicaments and biological substances
CPT/HCPCS: 36415; 71045; 80048; 80076; 83735; 83880; 84484 ×2; 85025; 85379; 85610; 93005; 96374; 96375; 99285; J3010

== ENCOUNTER 2018-11-01 08:23 | Emergency (ER) | payer OTHER ==
[2018-11-01] MEDS ORDERED: MORPHINE 4 MG/ML SYR ONE (09:19)
[2018-11-01] MEDS ORDERED: NA CHLORIDE 0.9% 1,000 ML ONE (09:19)
[2018-11-01] MEDS ORDERED: PROMETHAZINE 25 MG/ML VIAL ONE (09:19)
[2018-11-01] MEDS ORDERED: METRONIDAZOLE 500mg IVPB 500 MG/100 ML BAG IV ONE (09:20)
[2018-11-01] MEDS ORDERED: CIPROFLOXACIN 400mg IV 400 MG/200 ML BAG IV ONE (09:20)
[2018-11-01 09:21] LABS: Absolute Lymphocytes (CBC) 3.2 K/uL (0.7-4.9); Absolute Monocytes 0.6 K/uL (0.1-1.3); Absolute Neutrophil 4.3 K/uL (1.8-8.0); Basophils % 0.4 % (0-1.3); Eosinophils % 10.1 % (0-4.4); Hematocrit 38.5 % (36.0-45.0); Lymphocytes % 35.1 % (15.3-44.8); MPV 8.2 fL (7.6-11.3); Monocytes % 7.2 % (3.3-12.3); RBC Red Blood Cell Count 4.38 M/uL (3.86-4.86)
[2018-11-01 09:34] LABS: Urine Blood NEGATIVE (NEG); Urine Glucose NEGATIVE (NEG); Urine Protein NEGATIVE (NEG); Urine pH 6.5 (5.0-7.0)
[2018-11-01 09:35] LABS: ALT/SGPT 16 U/L (12-78); AST/SGOT 24 U/L (15-37); Albumin 3.6 g/dL (3.4-5.0); Alkaline Phosphatase 151 U/L (45-117); BUN Blood Urea Nitrogen 6 mg/dL (7-18); Bicarbonate 28 mmol/L (21-32); Bilirubin Direct < 0.1 mg/dL (0-0.2); Bilirubin Total 0.2 mg/dL (0.2-1.0); Glucose Level 98 mg/dL (74-106); Lipase 101 U/L (73-393); Potassium 3.1 mmol/L (3.5-5.1); Protein, Total 7.8 g/dL (6.4-8.2); Sodium Level 141 mmol/L (136-145)
[2018-11-01] MEDS ORDERED: KCL 20 MEQ/100 mL IVPB 20 MEQ/100 ML BAG IV ONE (10:34)
--- NOTE | 2018-11-01 11:18 | RAD REPORT ---
EXAM DESCRIPTION: CTAbdomen Pelvis W Contrast - 11/01/2018 11:03 am CLINICAL HISTORY: Abdominal pain. ABD PAIN COMPARISON: CT ABD PELVIS W CONTRAST dated 10/06/2015; CT ABD PELVIS W CONTRAST dated 08/07/2015; CT ABD PELVIS W CONTRAST dated 01/02/2015; CT ABD PELVIS W CONTRAST dated 03/23/2013 TECHNIQUE: Biphasic CT imaging of the abdomen and pelvis was performed with 100 ml non-ionic IV cont rast. All CT scans are performed using dose optimization technique as appropriate and may include automated exposure control or mA/KV adjustment according to patient size. FINDINGS: The lung bases are clear.Cholecystectomy clips. Small amount of gastroesophageal reflux se en. The liver, spleen, pancreas, adrenal glands and kidneys are within normal limits. No bowel obstruction, free air, free fluid or abscess. The appendix is normal. No evidence of signi ficant lymphadenopathy. No suspicious bony findings. IMPRESSION: No acute intra-abdominal or pelvic finding.
--- NOTE | 2018-11-01 12:38 | EDPHYS ---
Physician Documentation [facility] Name: Lorie Beal Age: 48 yrs Sex: Female : 1970 Arrival Date: 11/01/2018 Time: 08:28 Bed 7 Private MD: Musa Aguirre T ED Physician Akira Romero HPI: 11/01 08:54 This 48 yrs old Female presents to ER via Ambulatory with complaints of miguel Abdominal Pain, Migraine. 08:54 The patient complains of pain to the forehead, left temporal area and right temporal miguel area. The patient describes the headache as aching, constant. Onset: The symptoms/episode began/occurred 2 day(s) ago. The patient presents with abdominal pain in the left upper quadrant, in the left lower quadrant. Onset: The symptoms/episode began/occurred 3 day(s) ago. Associated signs and symptoms: The patient has no apparent associated signs or symptoms. Severity of symptoms: At its worst the pain was moderate, in the emergency department the pain is unchanged. The symptoms do not radiate. 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 - Social history:: Smoking status: Patient/guardian denies using tobacco. - Family history:: not pertinent. - Ebola Screening: : Patient negative for fever greater than or equal to 101.5 degrees Fahrenheit, and additional compatible Ebola Virus Disease symptoms Patient denies exposure to infectious person Patient denies travel to an Ebola-affected area in the 21 days before illness onset No symptoms or risks identified at this time. ROS: 08:54 Constitutional: Negative for fever, chills, and weight loss, Eyes: Negative for injury, miguel pain, redness, and discharge, ENT: Negative for injury, pain, and discharge, Neck: Negative for injury, pain, and swelling, Cardiovascular: Negative for chest pain, palpitations, and edema, Respiratory: Negative for shortness of breath, cough, wheezing, and pleuritic chest pain, Back: Negative for injury and pain, : Negative for injury, bleeding, discharge, and swelling, MS/Extremity: Negative for injury and deformity, Skin: Negative for injury, rash, and discoloration, Neuro: Negative for headache, weakness, numbness, tingling, and seizure, Psych: Negative for depression, anxiety, suicide ideation, homicidal ideation, and hallucinations, Allergy/Immunology: Negative for hives, rash, and allergies, Endocrine: Negative for neck swelling, polydipsia, polyuria, polyphagia, and marked weight changes, Hematologic/Lymphatic: Negative for swollen nodes, abnormal bleeding, and unusual bruising. 08:54 Abdomen/GI: Positive for abdominal pain, of the left upper quadrant and left lower quadrant. Exam: 08:54 Constitutional: This is a well developed, well nourished patient who is awake, alert, miguel and in no acute distress. Head/Face: Normocephalic, atraumatic. Eyes: Pupils equal round and reactive to light, extra-ocular motions intact. Lids and lashes normal. Conjunctiva and sclera are non-icteric and not injected. Cornea within normal limits. Periorbital areas with no swelling, redness, or edema. ENT: Nares patent. No nasal discharge, no septal abnormalities noted. Tympanic membranes are normal and external auditory canals are clear. Oropharynx with no redness, swelling, or masses, exudates, or evidence of obstruction, uvula midline. Mucous membranes moist. Neck: Trachea midline, no thyromegaly or masses palpated, and no cervical lymphadenopathy. Supple, full range of motion without nuchal rigidity, or vertebral point tenderness. No Meningismus. Chest/axilla: Normal chest wall appearance and motion. Nontender with no deformity. No lesions are appreciated. Cardiovascular: Regular rate and rhythm with a normal S1 and S2. No gallops, murmurs, or rubs. Normal PMI, no JVD. No pulse deficits. Respiratory: Lungs have equal breath sounds bilaterally, clear to auscultation and percussion. No rales, rhonchi or wheezes noted. No increased work of breathing, no retractions or nasal flaring. Back: No spinal tenderness. No costovertebral tenderness. Full range of motion. Female : Normal external genitalia. Skin: Warm, dry with normal turgor. Normal color with no rashes, no lesions, and no evidence of cellulitis. MS/ Extremity: Pulses equal, no cyanosis. Neurovascular intact. Full, normal range of motion. Neuro: Awake and alert, GCS 15, oriented to person, place, time, and situation. Cranial nerves II-XII grossly intact. Motor strength 5/5 in all extremities. Sensory grossly intact. Cerebellar exam normal. Normal gait. Psych: Awake, alert, with orientation to person, place and time. Behavior, mood, and affect are within normal limits. 08:54 Abdomen/GI: Inspection: distension, Bowel sounds: normal, Palpation: mild abdominal tenderness, moderate abdominal tenderness, in the left upper quadrant and left lower quadrant. 11:09 Neck: ROM/movement: is normal, no acute changes, limited range of motion, is not miguel appreciated, Meningeal signs: are not present, Kernig's sign is negative, Brudzinski's sign is negative. Vital Signs: 09:02 BP 132 / 83; Pulse 71; Resp 16; Temp 98.6; Pulse Ox 98% ; Weight 85.73 kg; Height 5 ft. bp 1 in. (154.94 cm); 10:00 BP 121 / 91; Pulse 71; Resp 12; Pulse Ox 99% on R/A; bp 11:39 BP 99 / 62; Pulse 76; Resp 14; Pulse Ox 97% ; bp 12:32 BP 97 / 65; Pulse 82; Resp 12; Pulse Ox 100% ; bp 13:34 BP 125 / 83; Pulse 80; Resp 14; Pulse Ox 99% ; bp 09:02 Body Mass Index 35.71 (85.73 kg, 154.94 cm) bp MDM: 08:33 Patient medically screened. miguel 08:56 Data reviewed: vital signs, nurses notes, lab test result(s), radiologic studies, plain miguel films. 11/01 08:49 Order name: Basic Metabolic Panel bp 11/01 08:49 Order name: CBC with Diff; Complete Time: 10:02 bp 11/01 08:49 Order name: Creatinine for Radiology; Complete Time: 10:02 bp 11/01 08:49 Order name: Hepatic Function; Complete Time: 10:02 bp 11/01 08:49 Order name: Lipase; Complete Time: 10:02 bp 11/01 08:49 Order name: Basic Metabolic Panel; Complete Time: 10:02 EDMS 11/01 08:53 Order name: Urine Dipstick--Ancillary (enter results); Complete Time: 10:02 ag 11/01 08:53 Order name: Urine --Ancillary (enter results); Complete Time: 10:02 ag 11/01 08:54 Order name: CT Abd/Pelvis - W/Contrast; Complete Time: 11:31 miguel 11/01 08:49 Order name: IV Saline Lock; Complete Time: 09:11 bp 11/01 08:49 Order name: Labs collected and sent; Complete Time: 09:11 bp 11/01 08:49 Order name: Urine Dipstick-Ancillary (obtain specimen); Complete Time: 09:02 bp 11/01 08:49 Order name: Urine Test (obtain specimen); Complete Time: 09:02 bp Administered Medications: 09:00 Drug: NS 0.9% 1000 ml Route: IV; Rate: 1 bolus; Site: left antecubital; bp 09:07 CANCELLED (Duplicate Order): Zofran 4 mg IVP once; over 2 minutes miguel 09:15 Drug: morphine 4 mg Route: IVP; Site: left antecubital; bp 09:27 Follow up: Response: No adverse reaction; Pain is decreased bp 09:15 Drug: Flagyl 500 mg Volume: 100 ml; Route: IVPB; Rate: 200 ml/hr; Infused Over: 30 bp mins; Site: left antecubital; 10:00 Follow up: IV Status: Completed infusion bp 09:15 Drug: Phenergan 12.5 mg Route: IVP; Site: left antecubital; bp 09:32 Follow up: Response: Nausea is decreased bp 10:00 Drug: Cipro 400 mg Volume: 200 ml; Route: IVPB; Infused Over: 60 mins; Site: left bp antecubital; 10:25 Drug: Potassium Chloride 20 mEq Route: IV; Rate: per protocol; Site: left antecubital; bp 13:33 Follow up: IV Status: Completed infusion; IV Intake: 100ml bp Disposition: 11/01/18 12:38 Discharged to Home. Impression: Diverticular disease of intestine, Abdominal tenderness, Migraine, Hypokalemia. - Condition is Stable. - Discharge Instructions: Abdominal Pain, Adult, High-Fiber Diet, Diverticulosis, Migraine Headache, Diverticulitis, Yzhj-om-Rxyk, Abdominal Pain, Adult, Aozu-ne-Uzmn, Migraine Headache, Nyao-yl-Xpfq. - Prescriptions for Fioricet with Codeine 50- 325-40-30 mg Oral capsule - take 1 capsule by ORAL route every 4 hours as needed not to exceed 6 capsules per 24hrs; 20 capsule. Bentyl 20 mg Oral Tablet - take 1 tablet by ORAL route every 6 hours As needed; 20 tablet. Flagyl 500 mg Oral Tablet - take 1 tablet by ORAL route every 6 hours for 7 days; 28 tablet. Cipro 500 mg Oral Tablet - take 1 tablet by ORAL route every 12 hours for 7 days; 14 tablet. - Medication Reconciliation Form, Thank You Letter, Antibiotic Education, Prescription Opioid Use, Work release form form. - Follow up: Musa Aguirre; When: 2 - 3 days; Reason: Recheck today's complaints, Continuance of care, Re-evaluation by your physician. Follow up: Pedro Cash; When: 2 - 3 days; Reason: Recheck today's complaints, Re-evaluation by your physician. Follow up: Marta Lovelace; When: 2 - 3 days; Reason: Recheck today's complaints, Re-evaluation by your physician. - Problem is new. - Symptoms have improved. Signatures: Dispatcher [employer] EDMS Akira Romero MD MD cha Peltier, Brian, RN RN bp Corrections: (The following items were deleted from the chart) 09:07 08:54 Zofran 4 mg IVP once; over 2 minutes ordered. miguel rivera 13:37 12:38 11/01/2018 12:38 Discharged to Home. Impression: Diverticular disease of bp intestine; Abdominal tenderness; Migraine; Hypokalemia. Condition is Stable. Discharge Instructions: Abdominal Pain, Adult, High-Fiber Diet, Migraine Headache, Diverticulitis, Cjae-tr-Spqg, Abdominal Pain, Adult, Wqho-xy-Lxoh, Migraine Headache, Zmdx-oy-Ypdu, Diverticulosis. Prescriptions for Fioricet with Codeine 73-511-22-30 mg Oral capsule - take 1 capsule by ORAL route every 4 hours as needed not to exceed 6 capsules per 24hrs; 20 capsule, Bentyl 20 mg Oral Tablet - take 1 tablet by ORAL route every 6 hours As needed; 20 tablet, Flagyl 500 mg Oral Tablet - take 1 tablet by ORAL route every 6 hours for 7 days; 28 tablet, Cipro 500 mg Oral Tablet - take 1 tablet by ORAL route every 12 hours for 7 days; 14 tablet. and Forms are Medication Reconciliation Form, Thank You Letter, Antibiotic Education, Prescription Opioid Use. Follow up: Musa Aguirre; When: 2 - 3 days; Reason: Recheck today's complaints, Continuance of care, Re-evaluation by your physician. Follow up: Pedro Cash; When: 2 - 3 days; Reason: Recheck today's complaints, Re-evaluation by your physician. Follow up: Marta Lovelace; When: 2 - 3 days; Reason: Recheck today's complaints, Re-evaluation by your physician. Problem is new. Symptoms have improved. miguel
--- NOTE | 2018-11-01 12:38 | ER ---
Nurse's Notes [facility] Name: Lorie Beal Age: 48 yrs Sex: Female : 1970 Arrival Date: 11/01/2018 Time: 08:28 Bed 7 Private MD: Musa Aguirre T Diagnosis: Diverticular disease of intestine;Abdominal tenderness;Migraine;Hypokalemia Presentation: 11/01 08:35 Presenting complaint: Patient states: LEFT FLANK PAIN AND MIGRAINE, H/O MIGRAINES. bp Transition of care: patient was not received from another setting of care. Onset of symptoms was October 30, 2018. Risk Assessment: Do you want to hurt yourself or someone else? Patient reports no desire to harm self or others. Initial Sepsis Screen: Does the patient meet any 2 criteria? No. Patient's initial sepsis screen is negative. Does the patient have a suspected source of infection? No. Patient's initial sepsis screen is negative. Care prior to arrival: None. 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 - Social history:: Smoking status: Patient/guardian denies using tobacco. - Family history:: not pertinent. - Ebola Screening: : Patient negative for fever greater than or equal to 101.5 degrees Fahrenheit, and additional compatible Ebola Virus Disease symptoms Patient denies exposure to infectious person Patient denies travel to an Ebola-affected area in the 21 days before illness onset No symptoms or risks identified at this time. Screenin:00 Abuse screen: Denies threats or abuse. Denies injuries from another. Nutritional bp screening: No deficits noted. Tuberculosis screening: No symptoms or risk factors identified. Fall Risk None identified. Assessment: 09:00 General: Appears in no apparent distress. uncomfortable, obese, Behavior is bp cooperative, appropriate for age, anxious. Pain: Complains of pain in left lower quadrant and left upper quadrant and forehead. Neuro: Level of Consciousness is awake, alert, obeys commands, Oriented to person, place, time, situation, Appropriate for age. Cardiovascular: No deficits noted. Respiratory: Airway is patent Respiratory effort is even, unlabored, Respiratory pattern is regular, symmetrical. GI: Abdomen is obese, Bowel sounds present X 4 quads. Abd is soft X 4 quads. : No signs and/or symptoms were reported regarding the genitourinary system. EENT: No deficits noted. Derm: No deficits noted. Musculoskeletal: Circulation, motion, and sensation intact. Range of motion: intact in all extremities. 09:15 Reassessment: PT COMPLETED PO CONTRAST, CT NOTIFIED. bp 10:37 Reassessment: ACUTE S/S RESOLVED, CT PENDING, VS STABLE ON MONITOR. bp 11:40 Reassessment: PT RETURNED FROM CT, ALL CURRENT ORDERS COMPLETED. IVF INFUSING. bp 12:33 Reassessment: PT SLEEPING, VS STABLE. IVF INFUSING. bp 13:33 Reassessment: PT D/C HOME AMBULATORY, DX WITH ABDOMINAL PAIN AND MIGRAINE. bp Vital Signs: 09:02 BP 132 / 83; Pulse 71; Resp 16; Temp 98.6; Pulse Ox 98% ; Weight 85.73 kg; Height 5 ft. bp 1 in. (154.94 cm); 10:00 BP 121 / 91; Pulse 71; Resp 12; Pulse Ox 99% on R/A; bp 11:39 BP 99 / 62; Pulse 76; Resp 14; Pulse Ox 97% ; bp 12:32 BP 97 / 65; Pulse 82; Resp 12; Pulse Ox 100% ; bp 13:34 BP 125 / 83; Pulse 80; Resp 14; Pulse Ox 99% ; bp 09:02 Body Mass Index 35.71 (85.73 kg, 154.94 cm) bp ED Course: 08:28 Patient arrived in ED. sb2 08:28 Musa Aguirre MD is Private Physician. sb2 08:33 Akira Romero MD is Attending Physician. miguel 08:36 Krunal Zimmer, RN is Primary Nurse. bp 08:51 Triage completed. bp 09:00 Inserted saline lock: 18 gauge in left antecubital area, using aseptic technique. Blood bp collected. 09:00 Patient has correct armband on for positive identification. Bed in low position. Call bp light in reach. Side rails up X2. Adult w/ patient. 09:00 Arm band placed on. bp 11:01 CT completed. Patient tolerated procedure well. Patient moved back from CT. kw1 11:03 CT Abd/Pelvis - W/Contrast In Process Unspecified. EDMS 12:38 Musa Aguirre MD is Referral Physician. miguel 12:38 Pedro Cash MD is Referral Physician. miguel 12:38 Marta Lovelace MD is Referral Physician. miguel 12:56 Basic Metabolic Panel Sent. bp 13:35 No provider procedures requiring assistance completed. IV discontinued, intact, bp bleeding controlled, No redness/swelling at site. Pressure dressing applied. Administered Medications: 09:00 Drug: NS 0.9% 1000 ml Route: IV; Rate: 1 bolus; Site: left antecubital; bp 09:07 CANCELLED (Duplicate Order): Zofran 4 mg IVP once; over 2 minutes miguel 09:15 Drug: morphine 4 mg Route: IVP; Site: left antecubital; bp 09:27 Follow up: Response: No adverse reaction; Pain is decreased bp 09:15 Drug: Flagyl 500 mg Volume: 100 ml; Route: IVPB; Rate: 200 ml/hr; Infused Over: 30 bp mins; Site: left antecubital; 10:00 Follow up: IV Status: Completed infusion bp 09:15 Drug: Phenergan 12.5 mg Route: IVP; Site: left antecubital; bp 09:32 Follow up: Response: Nausea is decreased bp 10:00 Drug: Cipro 400 mg Volume: 200 ml; Route: IVPB; Infused Over: 60 mins; Site: left bp antecubital; 10:25 Drug: Potassium Chloride 20 mEq Route: IV; Rate: per protocol; Site: left antecubital; bp 13:33 Follow up: IV Status: Completed infusion; IV Intake: 100ml bp Intake: 13:33 IV: 100ml; Total: 100ml. bp Outcome: 12:38 Discharge ordered by . miguel 13:36 Discharged to home ambulatory. bp 13:36 Condition: stable 13:36 Discharge instructions given to patient, Instructed on discharge instructions, follow up and referral plans. medication usage, Demonstrated understanding of instructions, follow-up care, Prescriptions given X 4. 13:37 Patient left the ED. bp Signatures: Dispatcher [employer] EDKY Akira Romero MD MD cha Peltier, Brian RN RN bp Oanh Cole kw1 Marybeth Torres sb2
[2018-11-01 13:56] VITALS: TEMP 98.6
[2018-11-01 14:02] VITALS: BP 125/83; O2SAT 99
== END 2018-11-01 13:37 | disposition home or self-care (01) ==
LOC: ER 08:23
DX: K57.30 Diverticulosis of large intestine without perforation or abscess without bleeding (principal); G43.909 Migraine, unspecified, not intractable, without status migrainosus; E87.6 Hypokalemia; R10.12 Left upper quadrant pain; R10.32 Left lower quadrant pain; I10 Essential (primary) hypertension; F41.9 Anxiety disorder, unspecified; Z79.899 Other long term (current) drug therapy
CPT/HCPCS: 36415; 74177; 80048; 80076; 81003; 81025; 83690; 85025; 96365; 96366; 96367; 96375; 99284; J0744; J2550; J7030; Q9967

== ENCOUNTER 2019-05-08 01:17 | Emergency (ER) | payer OTHER ==
[2019-05-08] MEDS ORDERED: NA CHLORIDE 0.9% 1,000 ML ONE (02:41)
[2019-05-08] MEDS ORDERED: DIPHENHYDRAMINE 50 MG/ML VIAL ONE (02:41)
[2019-05-08] MEDS ORDERED: METOCLOPRAMIDE 10 MG/2mL INJ ONE (02:41)
--- NOTE | 2019-05-08 02:50 | EDPHYS ---
Physician Documentation [facility] Name: Lorie Beal Age: 49 yrs Sex: Female : 1970 Arrival Date: 05/08/2019 Time: 01:20 Bed 4 Private MD: Musa Aguirre T ED Physician Riky Morse HPI: 05/08 03:57 This 49 yrs old Female presents to ER via Ambulatory with complaints of gs Headache. 03:57 The patient complains of pain to the left mormon. The patient describes the headache as gs throbbing. Onset: The symptoms/episode began/occurred 3 day(s) ago. Associated signs and symptoms: Pertinent positives: vomiting. Severity of symptoms: At its worst the pain was severe, in the emergency department the pain is unchanged. Headache History: The patient has had previous headaches and this one is similar to previous episodes. The symptoms are alleviated by nothing. the symptoms are aggravated by nothing. The patient has experienced similar episodes in the past, chronically. 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 - Social history:: Smoking status: Patient/guardian denies using tobacco, never smoked. - Ebola Screening: : Patient negative for fever greater than or equal to 101.5 degrees Fahrenheit, and additional compatible Ebola Virus Disease symptoms Patient denies exposure to infectious person Patient denies travel to an Ebola-affected area in the 21 days before illness onset. ROS: 03:57 All other systems are negative. gs Exam: 03:57 Head/Face: Normocephalic, atraumatic. Eyes: Pupils equal round and reactive to light, gs extra-ocular motions intact. Lids and lashes normal. Conjunctiva and sclera are non-icteric and not injected. Cornea within normal limits. Periorbital areas with no swelling, redness, or edema. ENT: Nares patent. No nasal discharge, no septal abnormalities noted. Tympanic membranes are normal and external auditory canals are clear. Oropharynx with no redness, swelling, or masses, exudates, or evidence of obstruction, uvula midline. Mucous membranes moist. Neck: Trachea midline, no thyromegaly or masses palpated, and no cervical lymphadenopathy. Supple, full range of motion without nuchal rigidity, or vertebral point tenderness. No Meningismus. Chest/axilla: Normal chest wall appearance and motion. Nontender with no deformity. No lesions are appreciated. Cardiovascular: Regular rate and rhythm with a normal S1 and S2. No gallops, murmurs, or rubs. Normal PMI, no JVD. No pulse deficits. Respiratory: Lungs have equal breath sounds bilaterally, clear to auscultation and percussion. No rales, rhonchi or wheezes noted. No increased work of breathing, no retractions or nasal flaring. Abdomen/GI: Soft, non-tender, with normal bowel sounds. No distension or tympany. No guarding or rebound. No evidence of tenderness throughout. Back: No spinal tenderness. No costovertebral tenderness. Full range of motion. Skin: Warm, dry with normal turgor. Normal color with no rashes, no lesions, and no evidence of cellulitis. MS/ Extremity: Pulses equal, no cyanosis. Neurovascular intact. Full, normal range of motion. Neuro: Awake and alert, GCS 15, oriented to person, place, time, and situation. Cranial nerves II-XII grossly intact. Motor strength 5/5 in all extremities. Sensory grossly intact. Cerebellar exam normal. Normal gait. 03:57 Constitutional: The patient appears alert, awake. Vital Signs: 01:40 BP 135 / 71; Pulse 80; Resp 17; Temp 97.7; Pulse Ox 98% ; Weight 81.65 kg; Height 5 ft. tl1 0 in. (152.40 cm); Pain 10/10; 03:00 BP 119 / 71; Pulse 83; Resp 16; Pulse Ox 99% on R/A; lp1 01:40 Body Mass Index 35.15 (81.65 kg, 152.40 cm) tl1 MDM: 02:03 Patient medically screened. 03:57 Differential diagnosis: migraine, tension headache, vasomotor headache. Data reviewed: vital signs, nurses notes, old medical records. Counseling: I had a detailed discussion with the patient and/or guardian regarding: the historical points, exam findings, and any diagnostic results supporting the discharge/admit diagnosis. Response to treatment: the patient's symptoms have markedly improved after treatment, the patient's condition has returned to base line, and as a result, I will discharge patient. Administered Medications: 02:25 Drug: Reglan 10 mg Route: IVP; Site: left forearm; rr5 03:15 Follow up: Response: Marked relief of symptoms lp1 02:25 Drug: NS 0.9% 1000 ml Route: IV; Rate: 1 bolus; Site: left forearm; rr5 03:40 Follow up: IV Status: Completed infusion; IV Intake: 1000ml lp1 02:28 Drug: Benadryl 25 mg Route: IVP; Site: left forearm; rr5 03:15 Follow up: Response: Marked relief of symptoms lp1 Disposition: 05/08/19 02:49 Discharged to Home. Impression: Headache. - Condition is Stable. - Discharge Instructions: General Headache Without Cause, Migraine Headache. - Work release form, Medication Reconciliation Form, Thank You Letter, Antibiotic Education, Prescription Opioid Use form. - Follow up: Pedro Cash MD; When: 2 - 3 days; Reason: Re-evaluation by your physician. Signatures: Sadie Shell RN RN lp1 Christina Andrews RN RN tl1 Riky Morse MD MD Albert Stapleton RN RN rr5 Corrections: (The following items were deleted from the chart) 03:47 02:49 05/08/2019 02:49 Discharged to Home. Impression: Headache. Condition is Stable. lp1 Forms are Medication Reconciliation Form, Thank You Letter, Antibiotic Education, Prescription Opioid Use. Follow up: Pedro Cash; When: 2 - 3 days; Reason: Re-evaluation by your physician.
--- NOTE | 2019-05-08 02:50 | ER ---
Nurse's Notes [facility] Name: Lorie Beal Age: 49 yrs Sex: Female : 1970 Arrival Date: 05/08/2019 Time: 01:20 Bed 4 Private MD: Musa Aguirre T Diagnosis: Headache Presentation: 05/08 01:37 Presenting complaint: Patient states: I have a history of migraines and I started tl1 having a headache today that wont go away. Transition of care: patient was not received from another setting of care. Onset of symptoms was May 08, 2019. Risk Assessment: Do you want to hurt yourself or someone else? Patient reports no desire to harm self or others. Initial Sepsis Screen: Does the patient meet any 2 criteria? No. Patient's initial sepsis screen is negative. Does the patient have a suspected source of infection? No. Patient's initial sepsis screen is negative. Care prior to arrival: Medication(s) given: Motrin. 01:37 Method Of Arrival: Ambulatory tl1 01:37 Acuity: KATELYN 3 tl1 Triage Assessment: 02:00 Headache History: The patient has had previous headaches and this one is similar to lp1 previous episodes. 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 - Social history:: Smoking status: Patient/guardian denies using tobacco, never smoked. - Ebola Screening: : Patient negative for fever greater than or equal to 101.5 degrees Fahrenheit, and additional compatible Ebola Virus Disease symptoms Patient denies exposure to infectious person Patient denies travel to an Ebola-affected area in the 21 days before illness onset. Screenin:59 Abuse screen: Denies threats or abuse. Denies injuries from another. Nutritional lp1 screening: No deficits noted. Tuberculosis screening: No symptoms or risk factors identified. Fall Risk None identified. Assessment: 02:00 General: Appears uncomfortable, Behavior is appropriate for age. Pain: Complains of lp1 pain in head Pain currently is 10 out of 10 on a pain scale. Pain began 1 day ago. Also complains of nausea, photophobia, sleeplessness. Neuro: Level of Consciousness is awake, alert, obeys commands, Oriented to person, place, time, situation, Pupils are PERRLA, Reports dizziness, headache in entire photophobia. Cardiovascular: Patient's skin is warm and dry. Respiratory: Respiratory effort is even, unlabored. GI: Reports nausea. : No signs and/or symptoms were reported regarding the genitourinary system. EENT: No signs and/or symptoms were reported regarding the EENT system. Derm: Skin is pink, warm \T\ dry. Musculoskeletal: No deficits noted. 03:00 Reassessment: Patient aware of discharge, pending IV fluid completion. lp1 03:30 Reassessment: Patient is alert, oriented x 3, equal unlabored respirations, skin lp1 warm/dry/pink. Patient states feeling better. Patient states symptoms have improved. Vital Signs: 01:40 BP 135 / 71; Pulse 80; Resp 17; Temp 97.7; Pulse Ox 98% ; Weight 81.65 kg; Height 5 ft. tl1 0 in. (152.40 cm); Pain 10/10; 03:00 BP 119 / 71; Pulse 83; Resp 16; Pulse Ox 99% on R/A; lp1 01:40 Body Mass Index 35.15 (81.65 kg, 152.40 cm) tl1 ED Course: 01:20 Patient arrived in ED. mr 01:20 Musa Aguirre MD is Private Physician. mr 01:23 Riky Morse MD is Attending Physician. gs 01:38 Triage completed. tl1 01:41 Arm band placed on right wrist. tl1 02:00 Sadie Shell, NED is Primary Nurse. lp1 02:00 Patient has correct armband on for positive identification. lp1 02:16 Missed attempt(s): 22 gauge in left forearm. Missed attempt(s): 22 gauge in right lp1 antecubital area. 02:25 Inserted saline lock: 20 gauge in left forearm, using aseptic technique. rr5 02:49 Pedro Cash MD is Referral Physician. gs 03:03 No provider procedures requiring assistance completed. lp1 03:41 IV discontinued, No redness/swelling at site. Pressure dressing applied. lp1 Administered Medications: 02:25 Drug: Reglan 10 mg Route: IVP; Site: left forearm; rr5 03:15 Follow up: Response: Marked relief of symptoms lp1 02:25 Drug: NS 0.9% 1000 ml Route: IV; Rate: 1 bolus; Site: left forearm; rr5 03:40 Follow up: IV Status: Completed infusion; IV Intake: 1000ml lp1 02:28 Drug: Benadryl 25 mg Route: IVP; Site: left forearm; rr5 03:15 Follow up: Response: Marked relief of symptoms lp1 Intake: 03:40 IV: 1000ml; Total: 1000ml. lp1 Outcome: 02:49 Discharge ordered by MD. 03:46 Discharged to home ambulatory, with family. lp1 03:46 Condition: good 03:46 Discharge instructions given to patient, Instructed on discharge instructions, follow up and referral plans. Demonstrated understanding of instructions, follow-up care. 03:47 Patient left the ED. lp1 Signatures: Annemarie Faustin Laura, RN RN lp1 Christina Andrews RN RN tl1 Riky Morse MD MD Albert Stapleton RN RN rr5 Corrections: (The following items were deleted from the chart) 03:01 02:00 Pain: Complains of pain in head Pain currently is 10 out of 10 on a pain scale. lp1 lp1 03:01 02:00 Neuro: Level of Consciousness is awake, alert, obeys commands, Oriented to lp1 person, place, time, situation, Pupils are PERRLA, Reports dizziness, headache in entire photophobia lp1 03:02 02:00 Pain: Complains of pain in head Pain currently is 10 out of 10 on a pain scale. lp1 Also complains of nausea, photophobia, sleeplessness, lp1
[2019-05-08 04:01] VITALS: TEMP 97.7
[2019-05-08 04:02] VITALS: BP 119/71; O2SAT 99
== END 2019-05-08 03:47 | disposition home or self-care (01) ==
LOC: ER 01:17
DX: R51 Headache (principal); I10 Essential (primary) hypertension; F41.9 Anxiety disorder, unspecified; Z88.5 Allergy status to narcotic agent; Z88.6 Allergy status to analgesic agent; Z88.8 Allergy status to other drugs, medicaments and biological substances
CPT/HCPCS: 96361; 96375; 96374; 99283; J2765; J7030

== ENCOUNTER 2019-07-15 09:59 | Emergency (ER) | payer OTHER ==
[2019-07-15] MEDS ORDERED: PROMETHAZINE 25 MG/ML VIAL ONE (10:43)
[2019-07-15] MEDS ORDERED: NA CHLORIDE 0.9% 1,000 ML ONE (10:44)
[2019-07-15] MEDS ORDERED: MORPHINE 4 MG/ML SYR ONE (10:44)
[2019-07-15 10:54] LABS: Absolute Lymphocytes (CBC) 2.1 K/uL (0.7-4.9); Basophils % 0.4 % (0-1.3); Hematocrit 36.3 % (36.0-45.0); Lymphocytes % 30.6 % (15.3-44.8); MPV 7.9 fL (7.6-11.3); RBC Red Blood Cell Count 4.06 M/uL (3.86-4.86)
[2019-07-15 11:12] LABS: Albumin 3.9 g/dL (3.4-5.0); Bilirubin Direct 0.1 mg/dL (0-0.2); Bilirubin Total 0.3 mg/dL (0.2-1.0); Potassium 3.1 mmol/L (3.5-5.1)
--- NOTE | 2019-07-15 12:57 | RAD REPORT ---
EXAM DESCRIPTION: CT - Abdomen Pelvis W Contrast - 07/15/2019 12:44 pm CLINICAL HISTORY: left side abdominal painleft-sided abdominal pain, body ache, chills COMPARISON: October 2018 TECHNIQUE: Biphasic, helical CT imaging of the abdomen and pelvis was performed following 100 ml non -ionic IV contrast. No oral contrast given. All CT scans are performed using dose optimization technique as appropriate and may include automated exposure control or mA/KV adjustment according to patient size. FINDINGS: No suspicious findings in the lung bases. Liver attenuation is borderline to mildly fatty infiltrated. There are no focal liver lesions identif ied. Spleen and pancreas show no suspicious findings. Gallbladder is absent. No biliary tree dilatati on. Symmetric renal function is seen with no hydronephrosis or suspicious renal mass. No pyelonephritis o r acute parenchymal process. No bladder abnormalities. No adrenal abnormalities. Uterus and ovaries s how no suspicious findings. No dilated bowel loops or bowel wall thickening. No free air, free fluid or inflammatory stranding. No hernia, mass or bulky lymphadenopathy. No suspicious bony findings. Lower lumbar facet joint degenerative changes are present. No vascular abnormality seen. IMPRESSION: Contrast enhanced CT abdomen and pelvis showing no acute finding. Nonacute findings are detailed in the body of the report.
--- NOTE | 2019-07-15 13:36 | EDPHYS ---
Physician Documentation [facility] Name: Lorie Beal Age: 49 yrs Sex: Female : 1970 Arrival Date: 07/15/2019 Time: 10:02 Bed 14 Private MD: Musa Aguirre T ED Physician Teddy Guerra HPI: 07/15 10:20 This 49 yrs old Female presents to ER via Ambulatory with complaints of flare cp up, Abdominal Pain. 10:20 The patient presents with abdominal pain in the left lower quadrant. cp 10:20 Onset: The symptoms/episode began/occurred this morning. The symptoms do not radiate. cp Associated signs and symptoms: Pertinent positives: nausea and vomiting, diarrhea, Pertinent negatives: constipation, dysuria, fever. pain similar to when diagnosed with diverticulitis. 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 - Social history:: Smoking status: Patient/guardian denies using tobacco. - Ebola Screening: : Patient denies travel to an Ebola-affected area in the 21 days before illness onset. ROS: 10:30 Eyes: Negative for injury, pain, redness, and discharge. cp 10:30 Constitutional: Negative for body aches, chills, fever, poor PO intake. 10:30 ENT: Negative for drainage from ear(s), ear pain, sore throat, difficulty swallowing, cp difficulty handling secretions. 10:30 Cardiovascular: Negative for chest pain, palpitations. cp 10:30 Respiratory: Negative for cough, shortness of breath, wheezing. 10:30 Abdomen/GI: Positive for abdominal pain, nausea and vomiting, diarrhea, Negative for constipation, black/tarry stool, rectal bleeding. 10:30 : Negative for urinary symptoms, vaginal bleeding, vaginal discharge. 10:30 Skin: Negative for rash. 10:30 Neuro: Negative for altered mental status, dizziness, headache, weakness. 10:30 All other systems are negative. Exam: 10:45 Constitutional: The patient appears in no acute distress, alert, awake, non-toxic, well cp developed, well nourished, uncomfortable. 10:45 Head/Face: Normocephalic, atraumatic. cp 10:45 Eyes: Periorbital structures: appear normal, Conjunctiva: normal, no exudate, no injection, Sclera: no appreciated abnormality, Lids and lashes: appear normal, bilaterally. 10:45 ENT: External ear(s): are unremarkable, Nose: is normal, Mouth: Lips: moist, Oral mucosa: pink and intact, moist, Posterior pharynx: is normal, airway is patent, no erythema, no exudate. 10:45 Chest/axilla: Inspection: normal, Palpation: is normal, no crepitus, no tenderness. 10:45 Cardiovascular: Rate: normal, Rhythm: regular. 10:45 Respiratory: the patient does not display signs of respiratory distress, Respirations: normal, no use of accessory muscles, no retractions, no splinting, no tachypnea, labored breathing, is not present, Breath sounds: are clear throughout, no decreased breath sounds, no stridor, no wheezing. 10:45 Abdomen/GI: Inspection: abdomen appears normal, Bowel sounds: active, all quadrants, Palpation: soft, in all quadrants, moderate abdominal tenderness, in the left upper quadrant and left lower quadrant, rebound tenderness, is not appreciated, voluntary guarding, is elicited in the left upper quadrant and left lower quadrant. 10:45 Back: pain, is absent, ROM is normal. Vital Signs: 10:16 BP 198 / 104; Pulse 98; Resp 18; Temp 97.1; Pulse Ox 99% on R/A; Weight 79.38 kg (R); aj1 Height 5 ft. 1 in. (154.94 cm) (R); Pain 9/10; 11:33 BP 141 / 81; Pulse 98; Resp 18; Pulse Ox 100% on R/A; aj1 12:58 BP 128 / 63; Pulse 89; Resp 18; Pulse Ox 100% on R/A; aj1 14:00 BP 125 / 68; Pulse 88; Resp 18; Pulse Ox 100% on R/A; aj1 10:16 Body Mass Index 33.07 (79.38 kg, 154.94 cm) aj1 MDM: 10:14 Patient medically screened. 13:33 Data reviewed: vital signs, nurses notes, lab test result(s), radiologic studies, CT cp scan. 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 Special discussion: Based on the patient's Hx, exam, and Dx evaluation, there is no indication for emergent surgery or inpatient Tx. It is understood by the patient/guardian that if the Sx's persist or worsen they need to return immediately for re-evaluation. ED course: VSS. Pain and nausea improved. Will discharge to home for continued monitoring. 07/15 10:19 Order name: Basic Metabolic Panel 07/15 10:19 Order name: CBC with Diff 07/15 10:19 Order name: Creatinine for Radiology 07/15 10:19 Order name: Hepatic Function 07/15 10:19 Order name: Lipase 07/15 11:05 Order name: CBC with Automated Diff; Complete Time: 12:00 EDMS 07/15 11:18 Order name: Basic Metabolic Panel; Complete Time: 12:00 EDMS 07/15 12:00 Interpretation: Normal except: K 3.1; CL 111; GLUC 111; GFR 82. 07/15 11:18 Order name: Liver (Hepatic) Function; Complete Time: 12:00 EDMS 07/15 12:01 Interpretation: Normal except: ALK 122; GLOB 4.1; A/G 1.0. 07/15 11:18 Order name: Lipase; Complete Time: 12:00 EDMS 07/15 11:19 Order name: Creatinine (Radiology Only); Complete Time: 12:00 EDMS 07/15 12:53 Order name: Urine Dipstick--Ancillary (enter results) bd 07/15 12:53 Order name: Urine --Ancillary (enter results) bd 07/15 13:48 Order name: Urine --Ancillary EDSD 07/15 13:48 Order name: Urine Dipstick-Ancillary EDSD 07/15 10:19 Order name: IV Saline Lock; Complete Time: 10:58 cp 07/15 10:19 Order name: Labs collected and sent; Complete Time: 10:58 cp 07/15 10:19 Order name: CT Abd/Pelvis - IV Contrast Only cp 07/15 13:27 Order name: PO challenge cp Administered Medications: 10:58 Drug: Phenergan 25 mg Route: IVP; Site: right antecubital; [facility] 14:29 Follow up: Response: No adverse reaction [facility] 10:58 Drug: NS 0.9% 1000 ml Route: IV; Rate: 1 bolus; Site: right antecubital; [facility] 14:28 Follow up: IV Status: Completed infusion; IV Intake: 1000ml [facility] 10:59 Drug: morphine 4 mg {Note: RASS score 0- patient is alert.} Route: IVP; Site: right 1 antecubital; 12:00 Follow up: Response: No adverse reaction; Pain is decreased; RASS: Alert and Calm (0) [facility] Disposition: 07/16 07:57 Co-signature as Attending Physician, Teddy Guerra MD I agree with the assessment and kdr plan of care. Disposition: 07/15/19 13:34 Discharged to Home. Impression: Diverticular disease of intestine, part unspecified, without perforation or abscess, Lower abdominal pain, unspecified. - Condition is Stable. - Discharge Instructions: Abdominal Pain, Adult, Diverticulosis. - Prescriptions for Bentyl 20 mg Oral Tablet - take 2 tablets by ORAL route every 6 hours As needed; 30 tablet. Cipro 500 mg Oral Tablet - take 1 tablet by ORAL route every 12 hours for 10 days; 20 tablet. Paxil 20 mg Oral Tablet - take 3 tablet by ORAL route once daily .; 90 tablet. Metronidazole 500 mg Oral Tablet - take 1 tablet by ORAL route every 8 hours; 30 tablet. promethazine 25 mg Oral Tablet - take 1 tablet by ORAL route every 6 hours As needed; 20 tablet. - Work release form, Medication Reconciliation Form, Thank You Letter, Antibiotic Education, Prescription Opioid Use form. - Follow up: Marta Lovelace MD; When: 2 - 3 days; Reason: Recheck today's complaints. - Problem is an acute exacerbation. - Symptoms have improved. Signatures: Dispatcher [employer] Dasia Bedoya RN RN aj1 Teddy Guerra MD MD kdr Akira Dumont PA PA cp Corrections: (The following items were deleted from the chart) 07/15 14:30 13:34 07/15/2019 13:34 Discharged to Home. Impression: Diverticular disease of aj1 intestine, part unspecified, without perforation or abscess; Lower abdominal pain, unspecified. Condition is Stable. Forms are Medication Reconciliation Form, Thank You Letter, Antibiotic Education, Prescription Opioid Use. Follow up: Marta Lovelace; When: 2 - 3 days; Reason: Recheck today's complaints. Problem is an acute exacerbation. Symptoms have improved. cp
--- NOTE | 2019-07-15 13:36 | ER ---
Nurse's Notes [facility] Name: Lorie Beal Age: 49 yrs Sex: Female : 1970 Arrival Date: 07/15/2019 Time: 10:02 Bed 14 Private MD: Musa Aguirre T Diagnosis: Diverticular disease of intestine, part unspecified, without perforation or abscess;Lower abdominal pain, unspecified Presentation: 07/15 10:14 Presenting complaint: Patient states: Chills, Left upper and lower abdominal pain, aj1 nausea, vomiting and diarrhea for the past 7 days. Patient states that she has a history of diverticulitis and this feels similar to her previous flare ups. Transition of care: patient was not received from another setting of care. Onset of symptoms was 2018. Risk Assessment: Do you want to hurt yourself or someone else? Patient reports no desire to harm self or others. Initial Sepsis Screen: Does the patient meet any 2 criteria? HR > 90 bpm. No. Patient's initial sepsis screen is negative. Does the patient have a suspected source of infection? Yes: Acute abdominal pain. Care prior to arrival: None. 10:14 Method Of Arrival: Ambulatory aj1 10:14 Acuity: KATELYN 3 aj1 Triage Assessment: 10:16 General: Appears in no apparent distress. uncomfortable, Behavior is cooperative, aj1 anxious, crying. Pain: Complains of pain in left upper quadrant and left lower quadrant. GI: Reports diarrhea, nausea, vomiting. 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 - Social history:: Smoking status: Patient/guardian denies using tobacco. - Ebola Screening: : Patient denies travel to an Ebola-affected area in the 21 days before illness onset. Screenin:15 Abuse screen: Denies threats or abuse. Denies injuries from another. Nutritional aj1 screening: No deficits noted. Tuberculosis screening: No symptoms or risk factors identified. 14:27 Fall Risk None identified. aj1 Assessment: 10:15 General: Appears in no apparent distress. uncomfortable, Behavior is cooperative, aj1 anxious, crying. Pain: Complains of pain in left lower quadrant and left upper quadrant Pain does not radiate. Pain currently is 9 out of 10 on a pain scale. Quality of pain is described as sharp, Pain began 7 days ago. Neuro: Level of Consciousness is awake, alert, obeys commands, Oriented to person, place, time, situation. Cardiovascular: Patient's skin is warm and dry. Respiratory: Airway is patent Respiratory effort is even, unlabored, Respiratory pattern is regular, symmetrical. GI: Abdomen is non-distended, Bowel sounds present X 4 quads. Abd is soft X 4 quads Abdomen is tender to palpation in left upper quadrant and left lower quadrant Reports lower abdominal pain, upper abdominal pain, diarrhea, nausea, vomiting. : No signs and/or symptoms were reported regarding the genitourinary system. EENT: No signs and/or symptoms were reported regarding the EENT system. Derm: No signs and/or symptoms reported regarding the dermatologic system. Skin is pink, warm \T\ dry. normal. Musculoskeletal: No signs and/or symptoms reported regarding the musculoskeletal system. Circulation, motion, and sensation intact. 11:33 Reassessment: Patient appears in no apparent distress at this time. No changes from aj1 previously documented assessment. Patient and/or family updated on plan of care and expected duration. Pain level reassessed. Patient is alert, oriented x 3, equal unlabored respirations, skin warm/dry/pink. 12:58 Reassessment: Patient appears in no apparent distress at this time. No changes from aj1 previously documented assessment. Patient and/or family updated on plan of care and expected duration. Pain level reassessed. Patient is alert, oriented x 3, equal unlabored respirations, skin warm/dry/pink. 14:00 Reassessment: Patient appears in no apparent distress at this time. No changes from aj1 previously documented assessment. Patient and/or family updated on plan of care and expected duration. Pain level reassessed. Patient is alert, oriented x 3, equal unlabored respirations, skin warm/dry/pink. 14:00 Reassessment: PO challenge initiated. aj1 Vital Signs: 10:16 BP 198 / 104; Pulse 98; Resp 18; Temp 97.1; Pulse Ox 99% on R/A; Weight 79.38 kg (R); aj1 Height 5 ft. 1 in. (154.94 cm) (R); Pain 9/10; 11:33 BP 141 / 81; Pulse 98; Resp 18; Pulse Ox 100% on R/A; aj1 12:58 BP 128 / 63; Pulse 89; Resp 18; Pulse Ox 100% on R/A; aj1 14:00 BP 125 / 68; Pulse 88; Resp 18; Pulse Ox 100% on R/A; aj1 10:16 Body Mass Index 33.07 (79.38 kg, 154.94 cm) aj1 ED Course: 10:02 Patient arrived in ED. am2 10:02 Musa Aguirre MD is Private Physician. am2 10:13 Akira Dumont PA is PHCP. cp 10:13 Teddy Guerra MD is Attending Physician. cp 10:14 Dasia Starr, NED is Primary Nurse. aj1 10:15 Triage completed. aj1 10:15 Patient has correct armband on for positive identification. Bed in low position. Call aj1 light in reach. 10:15 No provider procedures requiring assistance completed. aj1 10:16 Arm band placed on Patient placed in an exam room. aj1 11:10 Inserted saline lock: 22 gauge in right antecubital area, using aseptic technique. aj1 13:33 Marta Lovelace MD is Referral Physician. cp 14:26 IV discontinued, intact, bleeding controlled, No redness/swelling at site. Pressure aj1 dressing applied. Administered Medications: 10:58 Drug: Phenergan 25 mg Route: IVP; Site: right antecubital; aj1 14:29 Follow up: Response: No adverse reaction aj1 10:58 Drug: NS 0.9% 1000 ml Route: IV; Rate: 1 bolus; Site: right antecubital; aj1 14:28 Follow up: IV Status: Completed infusion; IV Intake: 1000ml aj1 10:59 Drug: morphine 4 mg {Note: RASS score 0- patient is alert.} Route: IVP; Site: right aj1 antecubital; 12:00 Follow up: Response: No adverse reaction; Pain is decreased; RASS: Alert and Calm (0) aj1 Intake: 14:28 IV: 1000ml; Total: 1000ml. aj1 Outcome: 13:34 Discharge ordered by MD. huerta 14:29 Discharged to home ambulatory. aj1 14:29 Condition: good 14:29 Discharge instructions given to patient, Instructed on discharge instructions, follow up and referral plans. no drinking with medication, no driving heavy equipment, medication usage, Demonstrated understanding of instructions, follow-up care, medications, Prescriptions given X 5 14:30 Patient left the ED. aj1 Signatures: Dasia Starr RN RN aj1 Akira Dumont PA PA cp Moreno, Amanda amMalgorzata
[2019-07-15 13:45] LABS: Urine Blood NEGATIVE (NEG); Urine Glucose NEGATIVE (NEG); Urine Protein 2+ (NEG); Urine Specific Gravity 1.025 (1.005-1.030)
[2019-07-15 16:09] VITALS: TEMP 97.1
[2019-07-15 16:10] VITALS: O2SAT 100
[2019-07-15 16:13] VITALS: BP 125/68
== END 2019-07-15 14:30 | disposition home or self-care (01) ==
LOC: ER 09:59
DX: K57.90 Diverticulosis of intestine, part unspecified, without perforation or abscess without bleeding (principal); I10 Essential (primary) hypertension; Z88.6 Allergy status to analgesic agent; Z88.8 Allergy status to other drugs, medicaments and biological substances
CPT/HCPCS: 85025; 80048; 36415; 81025; 80076; 81003; 83690; 74177; 96375; 96374; 99283; Q9967; J2550; J7030

== ENCOUNTER 2023-07-08 07:31 | Emergency (ER) | payer OTHER, SELFPAY ==
[2023-07-08] MEDS ORDERED: HYDROMORPHONE HCL 1 MG/ML INJ ONE ×2 (08:15→10:17)
[2023-07-08 08:16] LABS: Absolute Lymphocytes (CBC) 1.9 K/uL (0.7-4.9); Lymphocytes % 17.3 % (15.3-44.8); MCV 84.5 fL (80-100); MPV 7.5 fL (7.6-11.3); Platelets 326 thou/uL (152-406); RBC Red Blood Cell Count 4.74 M/uL (3.86-4.86)
[2023-07-08] MEDS ORDERED: ONDANSETRON 4 MG/2 ML VIAL ONE (08:16)
[2023-07-08] MEDS ORDERED: NA CHLORIDE 0.9% 1,000 ML ONE (08:16)
[2023-07-08 08:42] LABS: Albumin 3.5 g/dL (3.4-5.0); Bilirubin Total 0.7 mg/dL (0.2-1.0); Protein, Total 7.9 g/dL (6.4-8.2)
[2023-07-08 08:49] LABS: Potassium 2.4 mEq/L (3.5-5.1)
[2023-07-08] MEDS ORDERED: POTASSIUM CL SA 10 MEQ TAB PO ONE (09:15)
[2023-07-08] MEDS ORDERED: KCL 20 MEQ/100 mL IVPB 100 ML IV ONE (09:15)
[2023-07-08] MEDS ORDERED: PROMETHAZINE INJ 25 MG/ML AMP ONE (10:16)
--- NOTE | 2023-07-08 11:05 | ER ---
Nurse's Notes [facility] Name: Lorie Beal Age: 53 yrs Sex: Female : 1970 Arrival Date: 07/08/2023 Time: 07:31 Bed 13 Private MD: Diagnosis: Migraine without aura, not intractable Presentation: 07/08 07:48 Chief complaint: Patient states: "I've had a migraine since Friday, N/V/D. I took a mb9 COVID test the other day and it was negative.". Coronavirus screen: Vaccine status: Patient reports receiving the 2nd dose of the covid vaccine. Ebola Screen: No symptoms or risks identified at this time. Initial Sepsis Screen: Does the patient meet any 2 criteria? No. Patient's initial sepsis screen is negative. Does the patient have a suspected source of infection? No. Patient's initial sepsis screen is negative. Risk Assessment: Do you want to hurt yourself or someone else? Patient reports no desire to harm self or others. Onset of symptoms was 2022. 07:48 Method Of Arrival: Ambulatory mb9 07:48 Acuity: KATELYN 3 mb9 Triage Assessment: 07:50 General: Appears uncomfortable, Behavior is cooperative. Pain: Complains of pain in mb9 head. Neuro: Reports headache. Neuro: Zapien Agitation-Sedation Scale (RASS): 0 - Alert and Calm Level of Consciousness is awake, alert, obeys commands. Respiratory: Airway is patent. GI: Reports diarrhea, nausea, vomiting. Derm: Skin is pink, warm \\T\\ dry. Historical: - Allergies: 07:50 prasterone (DHEA); mb9 07:50 Stadol; mb9 07:50 Toradol; mb9 07:50 Tramadol HCl; mb9 07:50 Zoloft; mb9 - Home Meds: 07:50 Paxil 30 mg Oral tab 2 tabs once daily [Active]; mb9 - PMHx: 07:50 Anxiety; Diverticulitis; Hypertension; Migraines; mb9 - PSHx: 07:50 section; mb9 - Immunization history:: Adult Immunizations up to date. - Social history:: Smoking status: Patient denies any tobacco usage or history of. Screenin:50 [facility] ED Fall Risk Assessment (Adult) History of falling in the last 3 months, rs5 including since admission No falls in past 3 months (0 pts) Confusion or Disorientation No (0 pts) Intoxicated or Sedated No (0 pts) Impaired Gait No (0 pts) Mobility Assist Device Used No (0 pt) Altered Elimination No (0 pt) Score/Fall Risk Level 0 - 2 = Low Risk Oriented to surroundings, Maintained a safe environment. 07:50 Abuse screen: Denies threats or abuse. Nutritional screening: No deficits noted. rs5 Tuberculosis screening: No symptoms or risk factors identified. Assessment: 07:50 General: Appears in no apparent distress. comfortable, Behavior is calm, cooperative. rs5 Pain: Complains of pain in head Pain does not radiate. Pain currently is 8 out of 10 on a pain scale. Quality of pain is described as aching. Neuro: Level of Consciousness is awake, alert, obeys commands, Oriented to person, place, time, situation. Cardiovascular: Rhythm is regular. Respiratory: Airway is patent Respiratory effort is even, unlabored, Respiratory pattern is regular, symmetrical, Breath sounds are clear bilaterally. GI: Abdomen is round non-distended, Abd is soft and non tender X 4 quads. : No signs and/or symptoms were reported regarding the genitourinary system. EENT: No signs and/or symptoms were reported regarding the EENT system. Derm: Skin is pink, warm \\T\\ dry. Musculoskeletal: Range of motion: intact in all extremities. 08:30 Reassessment: Patient is alert, oriented x 3, equal unlabored respirations, skin rs5 warm/dry/pink. Patient states feeling better. 09:45 Reassessment: Patient and/or family updated on plan of care and expected duration. Pain rs5 level reassessed. 09:45 Pain: Complains of pain in left side of head Pain does not radiate. Pain currently is 8 rs5 out of 10 on a pain scale. Quality of pain is described as aching, Is continuous. 11:20 Reassessment: Patient states feeling better. GI: Patient currently denies nausea, rs5 vomiting. Vital Signs: 07:48 BP 139 / 92; Pulse 94; Resp 16; Temp 97.9; Pulse Ox 100% on R/A; Weight 72.57 kg; mb9 Height 5 ft. 1 in. ; Pain 10/10; 07:54 BP 124 / 84; Pulse 90; Resp 17; Temp 97.8(O); Pulse Ox 99% ; rs5 09:00 BP 142 / 83; Pulse 76; Resp 17; Pulse Ox 99% on R/A; rs5 09:25 rs5 10:05 BP 132 / 88; Pulse 77; Resp 17; Pulse Ox 99% ; rs5 11:10 BP 118 / 84; Pulse 79; Resp 17; Pulse Ox 99% on R/A; rs5 11:39 BP 128 / 82; Resp 17; Pulse Ox 99% on R/A; rs5 07:48 Body Mass Index 30.23 (72.57 kg, 154.94 cm) mb9 07:48 Pain Scale: Adult mb9 ED Course: 07:37 Patient arrived in ED. mg5 07:48 Arm band placed on. mb9 07:50 Triage completed. mb9 07:50 Patient has correct armband on for positive identification. Bed in low position. Call rs5 light in reach. Side rails up X2. 07:51 Saurav Richards MD is Attending Physician. sp3 07:58 Addy Peck, NED is Primary Nurse. rs5 08:10 Initial lab(s) drawn, by me, sent to lab. Inserted saline lock: 20 gauge in right aa5 antecubital area, using aseptic technique. Blood collected. 08:51 Notified ED physician of a critical lab result(s). potassium of 2.4. kc6 11:40 No provider procedures requiring assistance completed. IV discontinued, intact, rs5 bleeding controlled, No redness/swelling at site. Pressure dressing applied. Administered Medications: 08:15 Drug: NS 0.9% IV 1000 ml Route: IV; Rate: 1 bolus; Site: right antecubital; rs5 08:30 Follow up: Response: No adverse reaction rs5 08:15 Drug: Ondansetron IVP 4 mg Route: IVP; Site: right antecubital; rs5 08:30 Follow up: Response: No adverse reaction rs5 08:15 Drug: HYDROmorphone IVP 1 mg Route: IVP; Site: right antecubital; rs5 08:30 Follow up: Response: No adverse reaction rs5 09:10 Drug: Potassium Chloride PO 40 mEq Route: PO; rs5 09:45 Follow up: Response: No adverse reaction rs5 09:10 Drug: Potassium Chloride IV 20 mEq Route: IV; Rate: calculated rate; Site: right rs5 antecubital; 09:25 Follow up: Response: No adverse reaction rs5 11:05 Follow up: IV Status: Completed infusion rs5 10:05 Drug: HYDROmorphone IVP 1 mg Route: IVP; Site: right antecubital; rs5 10:25 Follow up: Response: No adverse reaction rs5 10:05 Drug: Promethazine IVP 12.5 mg Route: IVP; Site: right antecubital; rs5 10:25 Follow up: Response: No adverse reaction rs5 Medication: 11:40 VIS not applicable for this client. rs5 Outcome: 11:05 Discharge ordered by . sp3 11:40 Discharged to home ambulatory. rs5 11:40 Condition: stable 11:40 Discharge instructions given to patient, Instructed on discharge instructions, follow up and referral plans. Demonstrated understanding of instructions, follow-up care. 11:51 Patient left the ED. rs5 Signatures: Lilian Mchugh RN RN aa5 Saurav Richards MD MD sp3 Lisa Hernandes RN RN kc6 Annemarie Gardner RN RN mb9 Addy Peck RN RN rs5 Magalis Breaux mg5 Corrections: (The following items were deleted from the chart) 07:50 07:50 Allergies: Zofran; mb9 mb9 11:30 09:45 Response: No adverse reaction rs5 rs5 11:32 07:50 Pain: Complains of pain in head Pain does not radiate. Pain currently is 8 out of rs5 10 on a pain scale. Quality of pain is described as aching, rs5
--- NOTE | 2023-07-08 11:05 | EDPHYS ---
Physician Documentation [facility] Name: Lorie Beal Age: 53 yrs Sex: Female : 1970 Arrival Date: 07/08/2023 Time: 07:31 Bed 13 Private MD: ED Physician Saurav Richards HPI: 07/08 08:06 This 53 yrs old Female presents to ER via Ambulatory with complaints of Headache and sp3 vomiting 3 Days. 08:06 53-year-old female with a history of hypertension and extensive migraines dating back sp3 to 2014 now presents to the ED with headache and nausea vomiting for 3 days. She also states she has had a "sinus infection" with green discharge from her nasal passages which she feels may have induced her symptoms. Her last visit for migraine was back in 2019 and she has been well controlled with home meds since then. She denies any other alternative strange aspects to her current symptoms and states that other than the URI this feels like a standard migraine that she has had many times in the past. She was unable to control it with her home medications. She denies fever, neck pain, chest pain, shortness of breath, trauma, changes in her vision, any other focal neurological deficit, syncope, near syncope or any other signs or symptoms on ROS at this time.. Historical: - Allergies: 07:50 prasterone (DHEA); mb9 07:50 Stadol; mb9 07:50 Toradol; mb9 07:50 Tramadol HCl; mb9 07:50 Zoloft; mb9 - Home Meds: 07:50 Paxil 30 mg Oral tab 2 tabs once daily [Active]; mb9 - PMHx: 07:50 Anxiety; Diverticulitis; Hypertension; Migraines; mb9 - PSHx: 07:50 section; mb9 - Immunization history:: Adult Immunizations up to date. - Social history:: Smoking status: Patient denies any tobacco usage or history of. ROS: 08:09 Constitutional: Negative for fever, chills, and weight loss, Eyes: Negative for injury, sp3 pain, redness, and discharge, ENT: Negative for injury, pain, and discharge, Neck: Negative for injury, pain, and swelling, Cardiovascular: Negative for chest pain, palpitations, and edema, Respiratory: Negative for shortness of breath, cough, wheezing, and pleuritic chest pain, Back: Negative for injury and pain, MS/Extremity: Negative for injury and deformity, Skin: Negative for injury, rash, and discoloration, Psych: Negative for depression, anxiety, suicide ideation, homicidal ideation, and hallucinations, Allergy/Immunology: Negative for hives, rash, and allergies, Endocrine: Negative for neck swelling, polydipsia, polyuria, polyphagia, and marked weight changes, Hematologic/Lymphatic: Negative for swollen nodes, abnormal bleeding, and unusual bruising. 08:09 All other systems are negative. Exam: 08:09 Constitutional: This is a well developed, well nourished patient who is awake, alert, sp3 and in no acute distress. Head/Face: Normocephalic, atraumatic. Eyes: Pupils equal round and reactive to light, extra-ocular motions intact. Lids and lashes normal. Conjunctiva and sclera are non-icteric and not injected. Cornea within normal limits. Periorbital areas with no swelling, redness, or edema. ENT: Nares patent. No nasal discharge, no septal abnormalities noted. External auditory canals are clear. Oropharynx with no redness, swelling, or masses, exudates, or evidence of obstruction, uvula midline. Mucous membranes moist. Neck: Trachea midline, no thyromegaly or masses palpated, and no cervical lymphadenopathy. Supple, full range of motion without nuchal rigidity, or vertebral point tenderness. No Meningismus. Chest/axilla: Normal chest wall appearance and motion. Nontender with no deformity. No lesions are appreciated. Cardiovascular: Regular rate and rhythm with a normal S1 and S2. No gallops, murmurs, or rubs. Normal PMI, no JVD. No pulse deficits. Respiratory: Lungs have equal breath sounds bilaterally, clear to auscultation and percussion. No rales, rhonchi or wheezes noted. No increased work of breathing, no retractions or nasal flaring. Abdomen/GI: Soft, non-tender, with normal bowel sounds. No distension or tympany. No guarding or rebound. No evidence of tenderness throughout. Back: No spinal tenderness. No costovertebral tenderness. Full range of motion. Skin: Warm, dry with normal turgor. Normal color with no rashes, no lesions, and no evidence of cellulitis. MS/ Extremity: Pulses equal, no cyanosis. Neurovascular intact. Full, normal range of motion. Psych: Awake, alert, with orientation to person, place and time. Behavior, mood, and affect are within normal limits. 08:09 Neuro: Normal neurological exam except for mild photophobia noted.. Vital Signs: 07:48 BP 139 / 92; Pulse 94; Resp 16; Temp 97.9; Pulse Ox 100% on R/A; Weight 72.57 kg; mb9 Height 5 ft. 1 in. ; Pain 10/10; 07:54 BP 124 / 84; Pulse 90; Resp 17; Temp 97.8(O); Pulse Ox 99% ; rs5 09:00 BP 142 / 83; Pulse 76; Resp 17; Pulse Ox 99% on R/A; rs5 09:25 rs5 10:05 BP 132 / 88; Pulse 77; Resp 17; Pulse Ox 99% ; rs5 11:10 BP 118 / 84; Pulse 79; Resp 17; Pulse Ox 99% on R/A; rs5 11:39 BP 128 / 82; Resp 17; Pulse Ox 99% on R/A; rs5 07:48 Body Mass Index 30.23 (72.57 kg, 154.94 cm) mb9 07:48 Pain Scale: Adult mb9 MDM: 07:56 Patient medically screened. sp3 08:10 Data reviewed: vital signs, nurses notes, lab test result(s). ED course: 53-year-old sp3 female with vomiting and headache as well as URI symptoms sinus infection symptoms. Will obtain laboratory values to assess her electrolyte status and administer Zofran and Dilaudid IV for symptomatic control. We will consider discharge on oral antibiotic for the sinus infection assuming her pain and vomiting are improved which she states usually do with the medications and IV fluids. I am not highly suspicious for meningitis, intracranial hemorrhage, sepsis, shock or any other critical abnormality or pathology. She likely has a sinus infection induced migraine which is then further causing her emesis. This is in line with her thinking as well. Will reassess and disposition accordingly once interventions are complete.. 09:57 ED course: Patient mildly improved and will require second round of Dilaudid and now sp3 Phenergan IV. Potassium is being replaced.. 11:04 ED course: Headache is much improved after Phenergan and second Dilaudid. We will sp3 safely discharge patient home at this time. No active emesis noted.. 07/08 07:58 Order name: CBC with Diff; Complete Time: 09:34 sp3 07/08 07:58 Order name: CMP; Complete Time: 09:34 sp3 07/08 07:58 Order name: Flu; Complete Time: 09:34 sp3 07/08 07:58 Order name: SARS-COV-2 RT PCR; Complete Time: 09:34 sp3 07/08 07:58 Order name: IV Saline Lock; Complete Time: 08:15 sp3 07/08 07:58 Order name: Labs collected and sent; Complete Time: 08:15 sp3 07/08 07:58 Order name: PO challenge: After symptom improvement.; Complete Time: 11:40 sp3 Administered Medications: 08:15 Drug: NS 0.9% IV 1000 ml Route: IV; Rate: 1 bolus; Site: right antecubital; rs5 08:30 Follow up: Response: No adverse reaction rs5 08:15 Drug: Ondansetron IVP 4 mg Route: IVP; Site: right antecubital; rs5 08:30 Follow up: Response: No adverse reaction rs5 08:15 Drug: HYDROmorphone IVP 1 mg Route: IVP; Site: right antecubital; rs5 08:30 Follow up: Response: No adverse reaction rs5 09:10 Drug: Potassium Chloride PO 40 mEq Route: PO; rs5 09:45 Follow up: Response: No adverse reaction rs5 09:10 Drug: Potassium Chloride IV 20 mEq Route: IV; Rate: calculated rate; Site: right rs5 antecubital; 09:25 Follow up: Response: No adverse reaction rs5 11:05 Follow up: IV Status: Completed infusion rs5 10:05 Drug: HYDROmorphone IVP 1 mg Route: IVP; Site: right antecubital; rs5 10:25 Follow up: Response: No adverse reaction rs5 10:05 Drug: Promethazine IVP 12.5 mg Route: IVP; Site: right antecubital; rs5 10:25 Follow up: Response: No adverse reaction rs5 Disposition Summary: 07/08/23 11:05 Discharge Ordered Location: Home sp3 Condition: Stable sp3 Diagnosis - Migraine without aura, not intractable sp3 Followup: sp3 - With: Private Physician - When: As needed - Reason: If symptoms return Discharge Instructions: - Discharge Summary Sheet sp3 - Migraine Headache sp3 Forms: - Work release form sp3 - Medication Reconciliation Form sp3 - Thank You Letter sp3 - Antibiotic Education sp3 - Prescription Opioid Use sp3 - Patient Portal Instructions sp3 - Leadership Thank You Letter sp3 Signatures: Dispatcher [employer] EDLilian Quiñones RN RN aa5 Saurav Richards MD MD sp3 Annemarie Gardner RN RN mb9 Addy Peck RN RN rs5 Corrections: (The following items were deleted from the chart) 07:50 07:50 Allergies: Zofran; jorgito mb9
[2023-07-08 12:05] VITALS: TEMP 97.8; O2SAT 99
[2023-07-08 12:10] VITALS: BP 128/82
== END 2023-07-08 11:51 | disposition home or self-care (01) ==
LOC: ER 07:31
DX: G43.009 Migraine without aura, not intractable, without status migrainosus (principal); R11.10 Vomiting, unspecified; F41.9 Anxiety disorder, unspecified; Z88.5 Allergy status to narcotic agent; Z88.8 Allergy status to other drugs, medicaments and biological substances; Z20.822 Contact with and (suspected) exposure to COVID-19
CPT/HCPCS: 96365; 85025; 36415; 80053; 87635; 87804 ×2; 96375; 99284; 96366; J2550; J3480; J1170 ×2; J2405; J7030

== ENCOUNTER → 2023-10-25 | Emergency (ER) | payer SELFPAY ==
[~2023-10-25] MED LIST: CEFTRIAXONE 1000 MG/VIAL ONE; HYDRALAZINE HCL 20 MG/ML VIAL ONE; KCL 20 MEQ/100 mL IVPB 100 ML IV ONE; NA CHLORIDE 0.9% 1,000 ML ONE
[2023-10-25 02:38] LABS: Absolute Lymphocytes (CBC) 1.8 K/uL (0.7-4.9); Hematocrit 39.2 % (36.0-45.0); Lymphocytes % 7.3 % (15.3-44.8); MCV 82.8 fL (80-100); MPV 7.5 fL (7.6-11.3); Platelets 431 thou/uL (152-406); RBC Red Blood Cell Count 4.73 M/uL (3.86-4.86)
[2023-10-25 02:40] LABS: Urine Bacteria None Seen /HPF (<20); Urine Bilirubin NEGATIVE (Negative); Urine Blood 3+ (OVER) (Negative); Urine Clarity Extremely Turbid (Clear); Urine Color Light-Yellow (Yellow); Urine Glucose NEGATIVE (Negative); Urine Mucus Slight /HPF (None Seen); Urine Protein 2+ (Negative); Urine RBC <5 /HPF (None Seen); Urine Urobilinogen Normal (Normal)
[2023-10-25 02:47] LABS: Barbiturates NEGATIVE (NEGATIVE); Benzodiazepines NEGATIVE (NEGATIVE); Cocaine NEGATIVE (NEGATIVE); METHAMPHETAM NEGATIVE (NEGATIVE); Methadone NEGATIVE (NEGATIVE); Opiates NEGATIVE (NEGATIVE); Phencyclidine NEGATIVE (NEGATIVE); THC Cannibis NEGATIVE (NEGATIVE)
[2023-10-25 02:48] LABS: Protime INR 1.13
[2023-10-25 03:31] LABS: Potassium 2.7 mEq/L (3.5-5.1)
[2023-10-25 03:32] LABS: Bilirubin Direct 0.1 mg/dL (0-0.2); Bilirubin Indirect, Calculated 0.4 mg/dL (0.2-0.8); Bilirubin Total 0.5 mg/dL (0.2-1.0)
[2023-10-25 03:33] LABS: Albumin 4.2 g/dL (3.4-5.0); Magnesium 1.7; Protein, Total 9.3 g/dL (6.4-8.2)
[2023-10-25 03:34] LABS: Troponin High Sensitivity 84.2 (<58.9)
--- NOTE | 2023-10-25 06:06 | EDPHYS ---
Physician Documentation [facility] Name: Lorie Beal Age: 53 yrs Sex: Female : 1970 Arrival Date: 10/25/2023 Time: 00:52 Bed 17 Private MD: ED Physician Akira Romero HPI: 10/25 01:05 This 53 yrs old Female presents to ER via Unassigned with complaints of Altered Mental cp Status. 01:05 The patient presents with confusion. Onset: The symptoms/episode began/occurred at an cp unknown time. last known normal unknown. brought to ED by EMS after family was unable to contact patient over past 2 days. reportedly found on ground. Possible causes: unknown. Current symptoms: In the emergency department the patient's symptoms are unchanged from the initial presentation, despite EMS interventions. Patient's baseline: Neuro: alert and fully oriented, Motor: no deficits, Ambulation: walks without assistance, Speech: normal. Unable to obtain HPI due to altered mental status. Historical: - Allergies: 01:39 prasterone (DHEA); tm6 01:39 Toradol; tm6 01:39 Stadol; tm6 01:39 Zoloft; tm6 01:39 Tramadol HCl; tm6 - PMHx: 01:39 Anxiety; Diverticulitis; Hypertension; Migraines; tm6 - PSHx: 01:39 section; tm6 - Immunization history:: Adult Immunizations up to date. - Social history:: Smoking status: unknown. ROS: 01:10 Constitutional: Positive for poor PO intake, Negative for fever, cp 01:10 Cardiovascular: Negative for chest pain, cp 01:10 Abdomen/GI: Positive for abdominal pain, 01:10 Neuro: Positive for altered mental status, 01:10 Unable to obtain ROS due to altered mental status, Exam: 01:15 Constitutional: The patient appears alert, awake, non-diaphoretic, non-toxic, well cp developed, well nourished, uncomfortable, 01:15 Head/Face: Normocephalic, atraumatic. cp 01:15 Eyes: Periorbital structures: appear normal, Pupils: equal, round, and reactive to light and accomodation, Extraocular movements: intact throughout, Conjunctiva: exudate, in the left eye, injected, in the left eye, Lids and lashes: appear normal, bilaterally, 01:15 ENT: External ear(s): are unremarkable, Ear canal(s): are normal, clear, TM's: dullness, bilaterally, Nose: is normal, Mouth: Lips: dry, Oral mucosa: pink and intact, dry, Posterior pharynx: Airway: no evidence of obstruction, patent, 01:15 Neck: C-spine: vertebral tenderness, is not appreciated, crepitus, is not appreciated, cp 01:15 Chest/axilla: Inspection: normal, Palpation: is normal, no crepitus, no tenderness, cp 01:15 Cardiovascular: Rate: tachycardic, Rhythm: regular, 01:15 Respiratory: the patient does not display signs of respiratory distress, Respirations: normal, no use of accessory muscles, no retractions, labored breathing, is not present, Breath sounds: are clear throughout, no decreased breath sounds, no stridor, no wheezing, 01:15 Abdomen/GI: Inspection: abdomen appears normal, Bowel sounds: active, all quadrants, Palpation: soft, in all quadrants, mild abdominal tenderness, in the left upper quadrant, right lower quadrant and left lower quadrant, rebound tenderness, is not appreciated, involuntary guarding, is not appreciated, 01:15 Back: pain, that is mild, ROM is painful, with all movement, 01:15 Skin: cellulitis, is not appreciated, no rash present. 01:15 Neuro: Orientation: to person, Mentation: able to follow commands, slow to respond, confused, Motor: moves all fours, no focal deficits, 01:25 ECG was reviewed by the Attending Physician. cp Vital Signs: 01:38 BP 186 / 103; Pulse 102; Resp 19; Pulse Ox 100% ; Pain 0/10; tm6 01:44 Temp 99.4(O); Weight 69.85 kg; Height 5 ft. 2 in. ; tm6 02:15 BP 197 / 96; Pulse 107; Pulse Ox 97% on R/A; tm6 03:32 BP 172 / 85; Pulse 98; Pulse Ox 97% on R/A; tm6 04:19 BP 167 / 90; Pulse 98; Pulse Ox 96% on R/A; tm6 05:08 BP 183 / 96; Pulse 101; Pulse Ox 98% ; tm6 05:43 BP 179 / 94; Pulse 104; Pulse Ox 98% on R/A; tm6 05:43 Pain 0/10; tm6 06:27 BP 163 / 119; Pulse 100; Pulse Ox 99% on R/A; tm6 06:53 BP 178 / 107; Pulse 101; tm6 07:23 BP 185 / 98; Pulse 98; Resp 14; Pulse Ox 99% ; ko1 01:44 Body Mass Index 28.17 (69.85 kg, 157.48 cm) tm6 01:38 Pain Scale: Adult tm6 05:43 Pain Scale: Adult tm6 MDM: 01:00 Patient medically screened. 04:00 Differential Diagnosis: CVA, electrolyte abnormality, alcohol intoxication, cp intracranial bleed, meningitis, overdose, pneumonia, seizure, sepsis, volume depletion. 06:05 Data reviewed: vital signs, nurses notes, lab test result(s), EKG, radiologic studies, cp plain films. 06:05 I considered the following discharge prescriptions or medication management in the emergency department Medications were administered in the Emergency Department. See MAR. Independent interpretation of the following test(s) in the Emergency Department EKG: See my EKG interpretation above. Care significantly affected by the following chronic conditions: Hypertension. Response to treatment: the patient's symptoms have markedly improved after treatment. 07:45 Management of patient was discussed with the following: DR Peter[facility]. 10/25 01:00 Order name: Basic Metabolic Panel; Complete Time: 03:40 10/25 03:41 Interpretation: Normal except: K 2.7; GLUC 118; CRE 1.07; GFR 63. 10/25 01:00 Order name: CBC with Diff; Complete Time: 03:40 10/25 03:41 Interpretation: Normal except: WBC 25.20; PLT 431; MPV 7.5; ISMAEL% 83.9; LYM% 7.3; NEUT A cp 21.2; MNA 2.2. 10/25 01:00 Order name: LFT's; Complete Time: 03:40 10/25 03:42 Interpretation: Normal except: AST 136; ALK 123; TP 9.3; GLOB 5.1; A/G 0.8. 10/25 01:00 Order name: Magnesium; Complete Time: 03:40 10/25 01:00 Order name: NT PRO-BNP; Complete Time: 03:40 1230 03:43 Interpretation: Abnormal: NT PRO-BNP 1134. 10/25 01:00 Order name: PT-INR; Complete Time: 03:40 10/25 01:00 Order name: Troponin HS; Complete Time: 03:40 30 03:53 Interpretation: Abnormal. 10/25 01:00 Order name: COVID-19 SARS RT PCR; Complete Time: 03:40 10/25 01:00 Order name: Urinalysis W/Microscopic; Complete Time: 03:40 30 03:43 Interpretation: Normal except: UCLA Extremely Turbid; UKET 1+; UBLD 3+ (OVER); UPROT cp 2+; UESTR 250; UWBC 10-20. 10/25 01:00 Order name: ETOH Level; Complete Time: 03:40 10/25 01:00 Order name: UDS; Complete Time: 03:40 10/25 01:00 Order name: AMMONIA; Complete Time: 03:40 10/25 01:00 Order name: CK; Complete Time: 03:40 10/25 01:00 Order name: Ptt, Activated; Complete Time: 03:40 10/25 01:00 Order name: Lactate w/ 2H reflex if indic.; Complete Time: 03:40 10/25 01:00 Order name: PREGU; Complete Time: 03:40 30 03:52 Interpretation: Reviewed. 10/25 02:51 Order name: Urine Culture EDAK 10/25 05:54 Order name: Lactate Sepsis 2 HR Follow-up; Complete Time: 05:59 EDAK 10/25 06:00 Interpretation: Reviewed. 10/25 01:00 Order name: XRAY Chest (1 view) 10/25 01:00 Order name: CT Traumagram (Head C Spine CAP W Con) 10/25 01:00 Order name: EKG; Complete Time: 01:00 10/25 01:00 Order name: Cardiac monitoring; Complete Time: 01:12 10/25 01:00 Order name: EKG - Nurse/Tech; Complete Time: 01:26 10/25 01:00 Order name: IV Saline Lock; Complete Time: 02:11 10/25 01:00 Order name: Labs collected and sent; Complete Time: 02:11 cp 10/25 01:00 Order name: O2 Per Protocol; Complete Time: : cp 10/25 01:00 Order name: O2 Sat Monitoring; Complete Time: : cp 10/25 01:00 Order name: Velazquez; Complete Time: 02:11 cp EC:25 Rate is 96 beats/min. Rhythm is regular. MA interval is normal. QRS interval is normal. cp QT interval is normal. Interpreted by me. Reviewed by me. Administered Medications: 02:11 Drug: NS 0.9% IV 1000 ml IV at 1 bolus Per protocol; 1000 mL bolus Route: IV; Rate: 1 tm6 bolus; Site: left antecubital; 05:08 Follow up: Response: No adverse reaction; IV Intake: 1000ml tm6 05:07 Drug: Potassium Chloride IV 20 mEq IV at calculated rate once; administer over 1-2 tm6 hours Route: IV; Rate: calculated rate; Site: left antecubital; 05:07 Drug: Rocephin IV 1 grams IV at calculated rate once; Given slow IV push per pharmacy tm6 instructions Route: IV; Rate: calculated rate; Site: left antecubital; 05:08 Drug: NS 0.9% IV 1000 ml IV at 1 bolus Per protocol; 1000 mL bolus Route: IV; Rate: 1 tm6 bolus; Site: left antecubital; 06:33 Follow up: Response: No adverse reaction; IV Intake: 1000ml tm6 07:00 Drug: hydrALAZINE IVP 5 mg IVP once Route: IVP; Site: left antecubital; tm6 Disposition: 23:25 Critical Care:. cp Disposition Summary: 10/25/23 06:55 Transfer Ordered Notes: Transfer Location: [facility] cp Reason: Higher level of care cp Condition: Stable(10/25/23 06:55) cp Problem: new(10/25/23 06:55) cp Symptoms: have improved(10/25/23 06:55) cp Accepting Physician: DR Peter(10/25/23 08:01) ko1 Diagnosis - Altered mental status, unspecified(10/25/23 06:55) cp - Fracture of thoracic vertebra - compression T7 thru T10 cp - Rhabdomyolysis(10/25/23 06:55) cp - UTI/ Urinary tract infection, site not specified(10/25/23 06:56) cp - Severe sepsis without septic shock(10/25/23 06:56) cp - Hypokalemia(10/25/23 06:56) cp - Unspecified acute conjunctivitis, left eye cp Forms: - Medication Reconciliation Form cp - SBAR form cp Critical care time excluding procedures: 23:25 Critical care time: Bedside Care: 8 minutes, Consultation: 25 minutes. Total time: 33 cp minutes Signatures: Dispatcher [employer] EDMS Akira Dumont PA PA cp Anitra Ratliff RN RN ko1 Dreian Jamison RN RN tm6 Corrections: (The following items were deleted from the chart) 06:09 06:04 Vic Arvizu cp cp 06:53 06:04 Inpatient Admission cp cp 06:53 06:04 Telemetry/MedSurg (Inpatient) cp cp 06:53 06:04 Fair cp cp 06:53 06:04 new cp cp 06:53 06:04 have improved cp cp 06:53 06:04 Standard cp cp 06:53 06:04 cp cp 06:53 06:04 Altered mental status, unspecified cp cp 06:53 06:04 Rhabdomyolysis cp cp 06:53 06:04 Hypokalemia cp cp 06:53 06:04 UTI/ Urinary tract infection, site not specified cp cp 06:53 06:04 Severe sepsis without septic shock cp cp 06:53 06:09 Troy Lamar cp cp 06:56 06:55 DR Peter cp cp 06:56 06:56 DR Peter cp cp 06:58 06:56 DR Peter cp cp 08:01 06:58 DR Peter cp ko1
--- NOTE | 2023-10-25 06:06 | ER ---
Nurse's Notes [facility] Name: Lorie Beal Age: 53 yrs Sex: Female : 1970 Arrival Date: 10/25/2023 Time: 00:52 Bed 17 Private MD: Diagnosis: Altered mental status, unspecified;Fracture of thoracic vertebra-compression T7 thru T10;Rhabdomyolysis;UTI/ Urinary tract infection, site not specified;Severe sepsis without septic shock;Hypokalemia;Unspecified acute conjunctivitis, left eye Presentation: 10/25 01:38 Chief complaint: EMS states: patient missing for 2 days. Friends kicked in door and tm6 found patient on ground and lethargic. Coronavirus screen: Client denies travel out of the [place] in the last 14 days. Ebola Screen: Patient negative for fever greater than or equal to 101.5 degrees Fahrenheit, and additional compatible Ebola Virus Disease symptoms Patient denies exposure to infectious person. Patient denies travel to an Ebola-affected area in the 21 days before illness onset. No symptoms or risks identified at this time. Initial Sepsis Screen:. Risk Assessment: Do you want to hurt yourself or someone else? Patient reports no desire to harm self or others. Onset of symptoms is unknown. 01:38 Method Of Arrival: EMS: [facility] tm6 01:38 Acuity: KATELYN 2 tm6 07:24 Initial Sepsis Screen: Does the patient meet any 2 criteria? Altered Mental Status. HR ko1 > 90 bpm. Yes Does the patient have a suspected source of infection? No. Patient's initial sepsis screen is negative. Triage Assessment: 01:39 General: Appears in no apparent distress. unkempt, Behavior is calm. Pain: Denies pain. tm6 EENT: Eyes redness to left eye. Oral mucosa is dry. Neuro: Level of Consciousness is awake, lethargic, Oriented to person. Cardiovascular: Capillary refill < 3 seconds Patient's skin is warm and dry. Rhythm is sinus tachycardia. Respiratory: Airway is patent Respiratory effort is even, unlabored, Respiratory pattern is regular, symmetrical. GI: Abdomen is non-distended. : No signs and/or symptoms were reported regarding the genitourinary system. Derm: No signs and/or symptoms reported regarding the dermatologic system. Musculoskeletal: No signs and/or symptoms reported regarding the musculoskeletal system. Historical: - Allergies: 01:39 prasterone (DHEA); tm6 01:39 Toradol; tm6 01:39 Stadol; tm6 01:39 Zoloft; tm6 01:39 Tramadol HCl; tm6 - PMHx: 01:39 Anxiety; Diverticulitis; Hypertension; Migraines; tm6 - PSHx: 01:39 section; tm6 - Immunization history:: Adult Immunizations up to date. - Social history:: Smoking status: unknown. Screenin:11 [facility] ED Fall Risk Assessment (Adult) History of falling in the last 3 months, tm6 including since admission Yes- physiologic fall (2 pts) Confusion or Disorientation Yes (5 pts) Intoxicated or Sedated Altered Elimination Yes (1 pt) Score/Fall Risk Level 3 or more points = High Risk. Abuse screen: Denies threats or abuse. Denies injuries from another. Nutritional screening: has been missing for 2 days. Nutritional status unknown.. Tuberculosis screening: No symptoms or risk factors identified. Assessment: 01:45 Reassessment: see triage assessment. tm6 02:16 Neuro: Level of Consciousness is awake, confused, not speaking. tm6 03:00 General: Appears uncomfortable, unkempt. Neuro: Level of Consciousness is awake, tm6 confused, not speaking. 04:22 Reassessment: Patient appears in no apparent distress at this time. tm6 05:08 Reassessment: Patient appears in no apparent distress at this time. No changes from tm6 previously documented assessment. 05:42 Reassessment: patient alert and oriented to person and place. Disoriented to time and tm6 situation. 06:27 Reassessment: Patient appears in no apparent distress at this time. No changes from tm6 previously documented assessment. Vital Signs: 01:38 BP 186 / 103; Pulse 102; Resp 19; Pulse Ox 100% ; Pain 0/10; tm6 01:44 Temp 99.4(O); Weight 69.85 kg; Height 5 ft. 2 in. ; tm6 02:15 BP 197 / 96; Pulse 107; Pulse Ox 97% on R/A; tm6 03:32 BP 172 / 85; Pulse 98; Pulse Ox 97% on R/A; tm6 04:19 BP 167 / 90; Pulse 98; Pulse Ox 96% on R/A; tm6 05:08 BP 183 / 96; Pulse 101; Pulse Ox 98% ; tm6 05:43 BP 179 / 94; Pulse 104; Pulse Ox 98% on R/A; tm6 05:43 Pain 0/10; tm6 06:27 BP 163 / 119; Pulse 100; Pulse Ox 99% on R/A; tm6 06:53 BP 178 / 107; Pulse 101; tm6 07:23 BP 185 / 98; Pulse 98; Resp 14; Pulse Ox 99% ; ko1 01:44 Body Mass Index 28.17 (69.85 kg, 157.48 cm) tm6 01:38 Pain Scale: Adult tm6 05:43 Pain Scale: Adult tm6 ED Course: 00:53 Patient arrived in ED. km8 00:54 Akira Dumont PA is PHCP. cp 00:54 Akira Romero MD is Attending Physician. cp 01:04 Derian Jamison, NED is Primary Nurse. tm6 01:12 Radiology exam delayed due to lab results not completed at this time. (BUN/Creatinine) eh4 IV insertion attempt and/or patient not having appropriate IV at this time. 01:26 COVID-19 SARS RT PCR Sent. tm6 01:39 Triage completed. tm6 01:39 Arm band placed on right wrist. EKG completed in triage. Results shown to MD. tm6 01:44 Inserted saline lock: 22 gauge in left antecubital area, using aseptic technique. tm6 01:54 XRAY Chest (1 view) In Process Unspecified. EDMS 02:11 Velazquez cath inserted, using sterile technique, 18 Fr., by tx, balloon inflated, to tm6 gravity drainage, urine specimen collected. returned anna marie urine. Patient tolerated well. 02:11 No provider procedures requiring assistance completed. tm6 02:11 Patient has correct armband on for positive identification. Placed in gown. Bed in low tm6 position. Call light in reach. Side rails up X2. Adult w/ patient. Provided Education on: plan of care. Client placed on continuous cardiac and pulse oximetry monitoring. NIBP monitoring applied. bus driver/monitor on. Door closed. Noise minimized. Lights dimmed. Warm blanket given. Pillow given. 04:09 CT Traumagram (Head C Spine CAP W Con) In Process Unspecified. EDMS 06:03 Vic Arvizu is Hospitalizing Provider. cp 06:09 Troy Lamar MD is Hospitalizing Provider. cp 06:45 initiated a transfer with Sharlene Marino from the [facility]. eb 06:51 administrative approval given by Sharlene Lan Rn/ patient has been accepted to [facility] ER/ Dr. Kendal Peter has accepted the patient in transfer/ report to be called to [phone]. 07:06 Report given to Anitra MARINO. tm6 07:12 Patient transferred, IV remains in place. ko1 Administered Medications: 02:11 Drug: NS 0.9% IV 1000 ml IV at 1 bolus Per protocol; 1000 mL bolus Route: IV; Rate: 1 tm6 bolus; Site: left antecubital; 05:08 Follow up: Response: No adverse reaction; IV Intake: 1000ml tm6 05:07 Drug: Potassium Chloride IV 20 mEq IV at calculated rate once; administer over 1-2 tm6 hours Route: IV; Rate: calculated rate; Site: left antecubital; 05:07 Drug: Rocephin IV 1 grams IV at calculated rate once; Given slow IV push per pharmacy tm6 instructions Route: IV; Rate: calculated rate; Site: left antecubital; 05:08 Drug: NS 0.9% IV 1000 ml IV at 1 bolus Per protocol; 1000 mL bolus Route: IV; Rate: 1 tm6 bolus; Site: left antecubital; 06:33 Follow up: Response: No adverse reaction; IV Intake: 1000ml tm6 07:00 Drug: hydrALAZINE IVP 5 mg IVP once Route: IVP; Site: left antecubital; tm6 Medication: 02:13 VIS not applicable for this client. tm6 Intake: 05:08 IV: 1000ml; Total: 1000ml. tm6 06:33 IV: 1000ml; Total: 2000ml. tm6 Outcome: 06:04 Decision to Hospitalize by Provider. cp 06:55 ER care complete, transfer ordered by . cp 07:23 Condition: stable ko1 07:23 Instructed on the need for transfer, 08:01 Transferred by ground EMS [place]. to [facility], Transfer form ko1 completed. X-rays sent w/ patient. 08:01 Patient left the ED. ko1 Signatures: Dispatcher [employer] EDMS Akira Dumont PA PA cp Hickey, Ina eb Jeff, [facility]4 Anitra Ratliff, RN RN ko1 Michelle Do, RN RN km8 Derian Jamison RN RN tm6 Corrections: (The following items were deleted from the chart) 05:09 03:33 Reassessment: Patient and/or family updated on plan of care and expected tm6 duration. Pain level reassessed. Patient is alert, oriented x 3, equal unlabored respirations, skin warm/dry/pink. tm6
[2023-10-25 08:49] VITALS: TEMP 99.4
[2023-10-25 08:58] VITALS: BP 185/98; O2SAT 99
--- NOTE | 2023-10-25 20:01 | RAD REPORT ---
EXAM DESCRIPTION: CT - Head C Spine Timothy White - 10/25/2023 7:36 am CLINICAL HISTORY: Altered mental status COMPARISON: None available TECHNIQUE: Axial CT of the head obtained from the skull apex to the skull base without contrast. Axi al CT images of the cervical spine obtained without contrast. CT of the chest, abdomen and pelvis per formed following IV administration of iodinated contrast. This exam was performed according to our de partmental dose-optimization program, which includes automated exposure control, adjustment of the mA and/or kV according to patient size and/or use of iterative reconstruction technique. FINDINGS: Head CT: No acute intracranial hemorrhage identified. No mass, mass effect, shift of the midline, abnormal ext ra-axial fluid collection or CT evidence of acute ischemic change identified. The ventricular system and sulcal spaces are mildly enlarged compatible with mild cerebral atrophy. Scattered areas of hyp odensity throughout the supratentorial white matter are nonspecific and may be related to chronic sma ll vessel ischemic change. The visualized paranasal sinuses and the mastoids are clear. No skull fracture identified. Visualiz ed orbits and globes are unremarkable. Atherosclerotic calcification of the intracranial internal car otid arteries. Cervical CT : Alignment of the cervical spine is maintained without evidence of subluxation. The atlantoaxial, at lantodental, and occipitoatlantal intervals are preserved. No fracture identified. Vertebral body h eight preserved. Prevertebral soft tissues are unremarkable. Mild multilevel loss of intervertebral disc height with endplate spondylosis, facet arthropathy, and uncovertebral spurring Visualized skull base is intact. No cervical lymphadenopathy. Chest: Thyroid: No abnormalities of the visualized thyroid. Great Vessels: Great vessels have normal anatomic configuration. Thoracic Aorta: No abnormalities of the thoracic aorta identified. Pulmonary arteries: No central filling defects. Heart: No cardiomegaly, significant pericardial effusion, or coronary artery atherosclerosis Lymph Nodes: No enlarged mediastinal lymph nodes identified. Esophagus: No abnormalities of the esophagus identified Other: No additional findings. Lungs: Respiratory motion artifact. Minimal dependent atelectasis. No confluent airspace consolidatio n. Pleura: No pleural effusion or pneumothorax. Trachea/Airways: No abnormalities of the visualized trachea or airways. Abdomen: Liver: The liver has normal size and decreased density. No intrahepatic mass or biliary dilatation. Gallbladder: Prior cholecystectomy. Spleen, Pancreas, and Adrenal Glands: The spleen, pancreas, and adrenal glands are unremarkable. Kidneys: The kidneys have normal size and contour without evidence of solid mass or hydronephrosis. Vasculature: Aortoiliac atherosclerosis. IVC is unremarkable. The portal vein is patent. The proxim al visceral and renal arteries are patent. Stomach: The stomach and duodenum have normal course. Other: No free intraperitoneal air. No free fluid or lymphadenopathy. Tiny fat-containing umbilic al hernia. Pelvis: Bladder: Velazquez catheter in the urinary bladder. Wall thickening of the urinary bladder. Bowel: No dilated loops of large or small bowel. Moderate amount of stool. Scattered diverticula of the colon. Appendix: Normal appendix. Pelvis: Uterus is not enlarged. The Bones: Mild multilevel endplate spondylosis. Compression fractures of the T5-T10 vertebral bodies. Th e compression fracture at T7-T10 appear to be subacute or acute. Approximately 5-10% loss of anterior vertebral body height at these levels. No retropulsion of fracture fragments. IMPRESSION: 1. No acute intracranial abnormality by CT criteria. 2. No acute fracture or subluxation of the cervical spine. 3. Acute or subacute compression fractures of the T7-T10 vertebral bodies with approximately 5-10% loss of anterior vertebral body height. Correlation for point tenderness at these levels. MRI of the thoracic spine recommended for more complete characterization. 4. Wall thickening of the urinary bladder. This could be seen with cystitis. 5. Hepatic steatosis. 6. Diverticulosis without evidence of acute diverticulitis. Electronically signed by: Ramon Vega DO 10/25/2023 05:47 AM HOSPICE HOME HEALTH AIDE M Due to temporary technical issues with the PACS/Fluency reporting system, reports are being signed by the in house radiologists without review as a courtesy to insure prompt reporting. The interpreting radiologist is fully responsible for the content of the report.
--- NOTE | 2023-10-25 20:54 | RAD REPORT ---
EXAM DESCRIPTION: RAD - Chest Single View - 10/25/2023 1:52 am CLINICAL HISTORY: The patient is 53 years old and is Female; altered mental status TECHNIQUE: Frontal view of the chest. COMPARISON: No relevant prior studies available. FINDINGS: Lungs: Unremarkable. No consolidation. Pleural space: Unremarkable. No pneumothorax. Heart: Unremarkable. Mediastinum: Unremarkable. Normal mediastinal contour. Bones/joints: No acute findings. IMPRESSION: No acute findings in the chest. Electronically signed by: Nikolai Patel MD 10/25/2023 03:55 AM LEAD SIMULATION MODELING ENGINEER Due to temporary technical issues with the PACS/Fluency reporting system, reports are being signed by the in house radiologists without review as a courtesy to insure prompt reporting. The interpreting radiologist is fully responsible for the content of the report.
== END ==
LOC: ER 00:52
DX: N39.0 Urinary tract infection, site not specified (principal); R65.20 Severe sepsis without septic shock; M62.82 Rhabdomyolysis; E87.6 Hypokalemia; H10.32 Unspecified acute conjunctivitis, left eye; S22.069A Unspecified fracture of T7-T8 vertebra, initial encounter for closed fracture; S22.079A Unspecified fracture of T9-T10 vertebra, initial encounter for closed fracture; I10 Essential (primary) hypertension; Z11.52 Encounter for screening for COVID-19
CPT/HCPCS: 36415; 51702; 70450; 71045; 71260; 72125; 74177; 80048; 80076; 80307; 81001; 81025; 82077; 82140; 82550; 83605; 83735; 83880; 84484; 85025; 85610; 85730; 87086; 87088; 87635; 93005; 96374; 96375; 99285; J0360; J0696; J3480; J7030; Q9967

== ENCOUNTER 2025-01-01 10:40 | Emergency (ER) | payer OTHER ==
[2025-01-01] MEDS ORDERED: AZITHROMYCIN 250 MG TAB ONE (11:09)
--- NOTE | 2025-01-01 11:44 | RAD REPORT ---
EXAM: Chest Pa And Lat (2 Views) HISTORY: 54 years Female COUGH COMPARISON: None. FINDINGS: LUNGS/PLEURA: The lungs are clear. No pleural effusions or pneumothorax. No pulmonary edema. CARDIAC/MEDIASTINUM: The cardiac silhouette is within normal limits. UPPER ABDOMEN: No significant abnormality. BONES: No acute abnormality. LINES/TUBES/OTHER: N/A IMPRESSION: No evidence of acute cardiopulmonary disease.
[2025-01-01 11:58] LABS: Influenza A Ag Negative; Influenza B Ag Negative
[2025-01-01 12:02] LABS: SARS-CoV-2 Antigen Rapid Res Positive (Negative)
--- NOTE | 2025-01-01 12:36 | EDPHYS ---
Physician Documentation [facility] Name: Lorie Beal Age: 54 yrs Sex: Female : 1970 Arrival Date: 01/01/2025 Time: 10:40 Bed 11 Private MD: ED Physician Akira Romero HPI: 01/01 12:30 This 54 yrs old Female presents to ER via Ambulatory with complaints of Flu miguel Symptoms. 12:30 The patient or guardian reports airway noise, cough, flu symptoms, arthralgias, miguel low-grade fever, myalgias. Severity of symptoms: At their worst the symptoms were moderate, in the emergency department the symptoms are unchanged. Modifying factors: The symptoms are alleviated by nothing, the symptoms are aggravated by nothing. The patient reports fever, not measured (subjective). Modifying factors: there are no obvious modifying factors. Associated signs and symptoms: Pertinent positives: nausea, rhinorrhea, sore throat. Historical: - Allergies: 10:59 prasterone (DHEA); iw 10:59 Stadol; iw 10:59 Toradol; iw 10:59 Tramadol HCl; iw 10:59 Zoloft; iw - Home Meds: 10:59 carvedilol 6.25 mg Oral tablet 2 times per day [Active]; lisinopril-hydrochlorothiazide iw 20-25 mg Oral tablet daily [Active]; Paxil 60 mg Oral daily [Active]; - PMHx: 10:59 Anxiety; Diverticulitis; Hypertension; Migraines; iw - PSHx: 10:59 section; iw - Immunization history:: Adult Immunizations not up to date. - Infectious Disease History:: Denies. - Social history:: Smoking status: Patient denies any tobacco usage or history of. - Family history:: not pertinent. ROS: 12:30 Constitutional: Negative for fever, chills, and weight loss, Eyes: Negative for injury, miguel pain, redness, and discharge, ENT: Negative for injury, pain, and discharge, Neck: Negative for injury, pain, and swelling, Cardiovascular: Negative for chest pain, palpitations, and edema, Abdomen/GI: Negative for abdominal pain, nausea, vomiting, diarrhea, and constipation, Back: Negative for injury and pain, : Negative for injury, bleeding, discharge, and swelling, MS/Extremity: Negative for injury and deformity, Skin: Negative for injury, rash, and discoloration, Neuro: Negative for headache, weakness, numbness, tingling, and seizure, Psych: Negative for depression, anxiety, suicide ideation, homicidal ideation, and hallucinations, Allergy/Immunology: Negative for hives, rash, and allergies, Endocrine: Negative for neck swelling, polydipsia, polyuria, polyphagia, and marked weight changes, Hematologic/Lymphatic: Negative for swollen nodes, abnormal bleeding, and unusual bruising, 12:30 Respiratory: Positive for cough, with no reported sputum, Exam: 12:30 Constitutional: This is a well developed, well nourished patient who is awake, alert, miguel and in no acute distress. Head/Face: Normocephalic, atraumatic. Eyes: Pupils equal round and reactive to light, extra-ocular motions intact. Lids and lashes normal. Conjunctiva and sclera are non-icteric and not injected. Cornea within normal limits. Periorbital areas with no swelling, redness, or edema. ENT: Nares patent. No nasal discharge, no septal abnormalities noted. Tympanic membranes are normal and external auditory canals are clear. Oropharynx with no redness, swelling, or masses, exudates, or evidence of obstruction, uvula midline. Mucous membranes moist. Neck: Trachea midline, no thyromegaly or masses palpated, and no cervical lymphadenopathy. Supple, full range of motion without nuchal rigidity, or vertebral point tenderness. No Meningismus. Chest/axilla: Normal chest wall appearance and motion. Nontender with no deformity. No lesions are appreciated. Cardiovascular: Regular rate and rhythm with a normal S1 and S2. No gallops, murmurs, or rubs. Normal PMI, no JVD. No pulse deficits. Abdomen/GI: Soft, non-tender, with normal bowel sounds. No distension or tympany. No guarding or rebound. No evidence of tenderness throughout. Back: No spinal tenderness. No costovertebral tenderness. Full range of motion. Skin: Warm, dry with normal turgor. Normal color with no rashes, no lesions, and no evidence of cellulitis. MS/ Extremity: Pulses equal, no cyanosis. Neurovascular intact. Full, normal range of motion., bilateral aka Neuro: Awake and alert, GCS 15, oriented to person, place, time, and situation. Cranial nerves II-XII grossly intact. Motor strength 5/5 in all extremities. Sensory grossly intact. Cerebellar exam normal. Normal gait. Psych: Awake, alert, with orientation to person, place and time. Behavior, mood, and affect are within normal limits. 12:30 Respiratory: the patient does not display signs of respiratory distress, Respirations: normal, Breath sounds: are clear throughout, decreased breath sounds, are not appreciated, rhonchi, that are mild, are scattered, stridor, is not appreciated, + upper airway congestion. Respiratory rate: 18 Vital Signs: 10:58 BP 132 / 77; Pulse 72; Resp 18; Temp 97.2; Pulse Ox 100% on R/A; Weight 74.84 kg; iw Height 5 ft. 1 in. ; Pain 5/10; 10:58 Body Mass Index 31.18 (74.84 kg, 154.94 cm) iw 10:58 Pain Scale: Adult iw MDM: 10:47 Medical Screening Exam initiated [facility] 12:34 Differential diagnosis: viral Infection, bacterial infection, URI, bronchitis, miguel pneumonia gastroenteritis. Data reviewed: vital signs, nurses notes, lab test result(s), radiologic studies, plain films. Consideration of Admission/Observation Escalation of care including admission/observation considered. I considered the following discharge prescriptions or medication management in the emergency department Medications were administered in the Emergency Department. See MAR. Independent interpretation of the following test(s) in the Emergency Department X-Ray: My interpretation is cxr neg. Test considered but Not performed: Labs: no labs. Care significantly affected by the following chronic conditions: Hypertension, migrains, diverticulitis, anxiety, htn. 01/01 10:48 Order name: COVID-19 Ag + Flu A+B Ag; Complete Time: 12:11 [facility] 01/01 10:48 Order name: Chest Pa And Lat (2 Views) XRAY; Complete Time: 12:11 [facility] Administered Medications: 11:18 Drug: AZITHromycin PO 500 mg PO once Route: PO; hb 13:07 Follow up: Response: No adverse reaction hb 13:07 Drug: predniSONE PO 60 mg PO once Route: PO; hb 13:07 Follow up: Response: Medication administered at discharge. hb 13:07 Drug: Famotidine PO 40 mg PO once Route: PO; hb 13:07 Follow up: Response: Medication administered at discharge. hb Disposition Summary: 01/01/25 12:36 Discharge Ordered Notes: Location: Home [facility] Problem: new [facility] Symptoms: have improved miguel Condition: Stable [facility] Diagnosis - SARS-associated coronavirus as the cause of diseases classified elsewhere [facility] - Acute upper respiratory infection, unspecified miguel - Cough miguel Followup: [facility] - With: Private Physician - When: 2 - 3 days - Reason: Recheck today's complaints, Continuance of care, Re-evaluation by your physician Discharge Instructions: - Discharge Summary Sheet [facility] - Cool Mist Vaporizer miguel - Upper Respiratory Infection, Adult, [place] miguel - Cough, Adult, Whhn-us-Pqwz miguel - Cough, Adult [facility] - COVID-19 [facility] - 10 Things You Can Do to Manage Your COVID-19 Symptoms at Home - [facility] [place] (05/11/2021) [facility] - Symptoms of COVID-19 - [facility] [place] (01/15/2022) miguel - COVID-19: Quarantine and Isolation - [facility] [place] (01/23/2022) [facility] Forms: - Medication Reconciliation Form [facility] - Antibiotic Education miguel - Prescription Opioid Use miguel - Patient Portal Instructions [facility] - Leadership Thank You Letter [facility] - Work release form Prescriptions: - Tessalon Perles 100 mg Oral capsule - take 2 capsule ORAL route every 8 hours As needed; 30 capsule; Refills: 0, [facility] Product Selection Permitted - Prednisone 20 mg Oral Tablet - take 2 tablets ORAL route once daily for 5 days; 10 tablet; Refills: 0, Product [facility] Selection Permitted - Zithromax 500 mg Oral Tablet - take 1 tablet ORAL route once daily for 5 days; 5 tablet; Refills: 0, Product [facility] Selection Permitted Signatures: Dispatcher [employer] Akira Kumar MD MD cha Williams, Irene, RN RN Marah Sweet RN RN
--- NOTE | 2025-01-01 12:36 | ER ---
Nurse's Notes [facility] Name: Lorie Beal Age: 54 yrs Sex: Female : 1970 Arrival Date: 01/01/2025 Time: 10:40 Bed 11 Private MD: Diagnosis: SARS-associated coronavirus as the cause of diseases classified elsewhere;Acute upper respiratory infection, unspecified;Cough Presentation: 01/01 10:58 Chief complaint: Patient states: diff breathing since last weekend, now has a cough , + iw fever and chills X 3 nights, no urinary symptoms , irritation in throat. Coronavirus screen: Client presents with at least one sign or symptom that may indicate coronavirus-19. Ebola Screen: No symptoms or risks identified at this time. Initial Sepsis Screen: Does the patient meet any 2 criteria? No. Patient's initial sepsis screen is negative. Does the patient have a suspected source of infection? No. Patient's initial sepsis screen is negative. Risk Assessment: Do you want to hurt yourself or someone else? Patient reports no desire to harm self or others. Onset of symptoms was December 27, 2024. 10:58 Method Of Arrival: Ambulatory iw 10:58 Acuity: KATELYN 3 iw Historical: - Allergies: 10:59 prasterone (DHEA); iw 10:59 Stadol; iw 10:59 Toradol; iw 10:59 Tramadol HCl; iw 10:59 Zoloft; iw - Home Meds: 10:59 carvedilol 6.25 mg Oral tablet 2 times per day [Active]; lisinopril-hydrochlorothiazide iw 20-25 mg Oral tablet daily [Active]; Paxil 60 mg Oral daily [Active]; - PMHx: 10:59 Anxiety; Diverticulitis; Hypertension; Migraines; iw - PSHx: 10:59 section; iw - Immunization history:: Adult Immunizations not up to date. - Infectious Disease History:: Denies. - Social history:: Smoking status: Patient denies any tobacco usage or history of. - Family history:: not pertinent. Screenin:30 [facility] ED Fall Risk Assessment (Adult) History of falling in the last 3 months, hb including since admission No falls in past 3 months (0 pts) Confusion or Disorientation No (0 pts) Intoxicated or Sedated No (0 pts) Impaired Gait No (0 pts) Mobility Assist Device Used No (0 pt) Altered Elimination No (0 pt) Score/Fall Risk Level 0 - 2 = Low Risk Oriented to surroundings, Maintained a safe environment, Educated pt \T\ family on fall prevention, incl call for assistance when getting out of bed. Abuse screen: Denies threats or abuse. Denies injuries from another. Nutritional screening: No deficits noted. Tuberculosis screening: No symptoms or risk factors identified. Assessment: 11:30 General: Appears in no apparent distress. ill, Behavior is calm, cooperative. Pain: hb Pain currently is 5 out of 10 on a pain scale. Neuro: Level of Consciousness is awake, alert, obeys commands, Oriented to person, place, time, situation. Cardiovascular: Patient's skin is warm and dry. Respiratory: Respiratory effort is even, unlabored, Respiratory pattern is regular, symmetrical. 12:30 Reassessment: Patient appears in no apparent distress at this time. No changes from hb previously documented assessment. Patient and/or family updated on plan of care and expected duration. Pain level reassessed. Vital Signs: 10:58 BP 132 / 77; Pulse 72; Resp 18; Temp 97.2; Pulse Ox 100% on R/A; Weight 74.84 kg; iw Height 5 ft. 1 in. ; Pain 5/10; 10:58 Body Mass Index 31.18 (74.84 kg, 154.94 cm) iw 10:58 Pain Scale: Adult iw ED Course: 10:46 Patient arrived in ED. im 10:47 Akira Romero MD is Attending Physician. miguel 10:59 Triage completed. iw 11:00 Arm band placed on. iw 11:09 COVID-19 Ag + Flu A+B Ag Sent. iw 11:18 COVID-19 Ag + Flu A+B Ag Sent. hb 11:33 Chest Pa And Lat (2 Views) XRAY In Process Unspecified. EDMS 12:30 Patient has correct armband on for positive identification. hb 13:14 Provided Education on: medications, follow up. hb 13:14 No provider procedures requiring assistance completed. Patient did not have IV access hb during this emergency room visit. Administered Medications: 11:18 Drug: AZITHromycin PO 500 mg PO once Route: PO; hb 13:07 Follow up: Response: No adverse reaction hb 13:07 Drug: predniSONE PO 60 mg PO once Route: PO; hb 13:07 Follow up: Response: Medication administered at discharge. 13:07 Drug: Famotidine PO 40 mg PO once Route: PO; 13:07 Follow up: Response: Medication administered at discharge. hb Medication: 12:30 VIS not applicable for this client. hb Outcome: 12:36 Discharge ordered by . miguel 13:13 Discharged to home ambulatory, 13:13 Condition: stable 13:13 Discharge instructions given to patient, Instructed on discharge instructions, follow up and referral plans. medication usage, Demonstrated understanding of instructions, follow-up care, medications, Prescriptions given X 3, 13:15 Patient left the ED. hb Signatures: Dispatcher [employer] EDAK Akira Romero MD MD cha Williams, Irene RN RN Marah Sweet RN RN Nikki Carrasquillo
[2025-01-01] MEDS ORDERED: predniSONE 20 MG TAB ONE (12:59)
[2025-01-01] MEDS ORDERED: FAMOTIDINE 20 MG TAB ONE (13:00)
[2025-01-01 13:19] VITALS: BP 132/77; TEMP 97.2; O2SAT 100
== END 2025-01-01 13:15 | disposition home or self-care (01) ==
LOC: ER 10:40
DX: U07.1 COVID-19 (principal); J06.9 Acute upper respiratory infection, unspecified
CPT/HCPCS: 36415; 71046; 99283; 87428; J7512

== ENCOUNTER 2025-01-07 18:22 | Emergency (ER) | payer OTHER ==
[2025-01-07] MEDS ORDERED: LEVALBUTEROL 1.25 MG/3 ML NEB ONE (19:50)
--- NOTE | 2025-01-07 20:00 | RAD REPORT ---
EXAMINATION: ONE VIEW CHEST XR CLINICAL INDICATION: Female, 54 years old.,COUGH TECHNIQUE: Frontal chest projection is submitted. Examination is limited by patient positioning and t echnique. COMPARISON: 01/01/2025 FINDINGS: The lungs are well inflated and clear. No pneumothorax or sizable effusion. The heart is normal in s ize. Mediastinal contours are unremarkable. IMPRESSION: No acute intrathoracic abnormalities.
--- NOTE | 2025-01-07 20:08 | EDPHYS ---
Physician Documentation [facility] Name: Lorie Beal Age: 54 yrs Sex: Female : 1970 Arrival Date: 01/07/2025 Time: 18:22 Bed 12 Private MD: ED Physician Isaias Jon HPI: 01/07 19:29 This 54 yrs old Female presents to ER via Ambulatory with complaints of Wheezing. rn 19:30 The patient or guardian reports cough. Onset: The symptoms/episode began/occurred 1 rn week(s) ago. Severity of symptoms: At their worst the symptoms were mild, in the emergency department the symptoms are unchanged. The patient has not experienced similar symptoms in the past. The patient has been recently seen at the [facility] Emergency Department. Patient diagnosed with COVID last week. Sent home with steroids and Z-Óscar. Patient states has not fully recovered, still coughing, mild wheezing and shortness of breath. No chronic lung problems. No smoking.. Historical: - Allergies: 18:59 prasterone (DHEA); ld1 18:59 Stadol; ld1 18:59 Toradol; ld1 18:59 Tramadol HCl; ld1 18:59 Zoloft; ld1 - PMHx: 18:59 Anxiety; Diverticulitis; Hypertension; Migraines; ld1 - PSHx: 18:59 section; ld1 - Immunization history:: Adult Immunizations up to date. - Infectious Disease History:: Denies. - Social history:: Smoking status: Patient denies any tobacco usage or history of. - Family history:: not pertinent. - Hospitalizations: : No recent hospitalization is reported. ROS: 19:30 Constitutional: Negative for fever, chills, and weight loss, Cardiovascular: Negative rn for chest pain, palpitations, and edema, Respiratory: Positive for cough and wheezing Abdomen/GI: Negative for abdominal pain, nausea, vomiting, diarrhea, and constipation, Exam: 19:30 Constitutional: This is a well developed, well nourished patient who is awake, alert, rn and in no acute distress. Cardiovascular: Regular rate and rhythm. No pulse deficits. Respiratory: No increased work of breathing. No retractions. Faint left lung wheezing in upper lobe Vital Signs: 18:57 BP 153 / 99; Pulse 97; Resp 18; Temp 99.1(O); Pulse Ox 95% on R/A; Weight 72.57 kg; ld1 Height 5 ft. 1 in. ; Pain 0/10; 20:30 BP 141 / 71; Pulse 85; Resp 20; Pulse Ox 98% ; kb3 18:57 Body Mass Index 30.23 (72.57 kg, 154.94 cm) ld1 18:57 Pain Scale: Adult ld1 MDM: 19:02 Medical Screening Exam initiated rn 20:06 Differential Diagnosis: Viral Syndrome Pneumonia. Data reviewed: vital signs, nurses rn notes, radiologic studies, plain films, and as a result, I will discharge patient. Counseling: I had a detailed discussion with the patient and/or guardian regarding the historical points, exam findings, and any diagnostic results supporting the discharge/admit diagnosis, radiology results, the need for outpatient follow up, to return to the emergency department if symptoms worsen or persist or if there are any questions or concerns that arise at home. Response to treatment: the patient's symptoms have mildly improved after treatment, and as a result, I will discharge patient. ED course: Chest x-ray images negative for pneumonia. Patient is still slightly febrile a week after COVID. Will place on Levaquin and prescribe inhaler for wheezing noted on exam. Patient better after nebulizer treatment.. 01/07 19:08 Order name: XRAY Chest (1 view); Complete Time: 20:01 rn Administered Medications: 20:01 Drug: Levalbuterol Inhalation 1.25 mg Inhalation once Route: Inhalation; kb3 20:30 Follow up: Response: No adverse reaction; Wheezing diminished kb3 20:30 Follow up: Response: No adverse reaction kb3 20:20 Drug: LevOfloxacin PO 500 mg PO once Route: PO; kb3 20:30 Follow up: Response: No adverse reaction kb3 Disposition Summary: 01/07/25 20:07 Discharge Ordered Notes: Location: Home rn Problem: an ongoing problem rn Symptoms: have improved rn Condition: Stable rn Diagnosis - Wheezing rn - Cough rn Followup: rn - With: Private Physician - When: As needed - Reason: Recheck today's complaints, Re-evaluation by your physician Discharge Instructions: - Discharge Summary Sheet rn - Cough, Adult rn Forms: - Medication Reconciliation Form rn - Antibiotic learning support aide - Prescription Opioid Use rn - Patient Portal Instructions rn - Leadership Thank You Letter rn Prescriptions: - albuterol sulfate 90 mcg/actuation Inhalation HFA Aerosol Inhaler - inhale 2 puff INHALATION route every 4 to 6 hours As needed as needed for rn bronchospasm and wheezing; 1 unit; Refills: 0, Product Selection Permitted - levofloxacin 500 mg Oral tablet - take 1 tablet ORAL route once daily for 7 days; 7 tablet; Refills: 0, Product rn Selection Permitted Signatures: Dispatcher [employer] EDMS Isaias Jon MD MD rn Sims, Lauren, RN RN ld1 Lilian Rivera RN RN kb3 Corrections: (The following items were deleted from the chart) 19:08 19:08 Chest Single View+RAD.RAD.[email or web address] ordered. EDHI EDMS
--- NOTE | 2025-01-07 20:08 | ER ---
Nurse's Notes [facility] Name: Lorie Beal Age: 54 yrs Sex: Female : 1970 Arrival Date: 01/07/2025 Time: 18:22 Bed 12 Private MD: Diagnosis: Wheezing;Cough Presentation: 01/07 18:57 Chief complaint: Patient states: Covid positive last week. Pt reporting wheezing \T\ ld1 chest discomfort from coughing so hard. Coronavirus screen: At this time, the client does not indicate any symptoms associated with coronavirus-19. Ebola Screen: No symptoms or risks identified at this time. Initial Sepsis Screen: Does the patient meet any 2 criteria? No. Patient's initial sepsis screen is negative. Does the patient have a suspected source of infection? No. Patient's initial sepsis screen is negative. Risk Assessment: Do you want to hurt yourself or someone else? Patient reports no desire to harm self or others. Onset of symptoms was January 07, 2025. 18:57 Method Of Arrival: Ambulatory ld1 18:57 Acuity: KATELYN 3 ld1 Triage Assessment: 18:59 General: Appears in no apparent distress. comfortable, Behavior is calm, cooperative, ld1 appropriate for age. Pain: Denies pain. EENT: No signs and/or symptoms were reported regarding the EENT system. Neuro: Level of Consciousness is awake, alert, obeys commands, Oriented to person, place, time, situation, Appropriate for age. Cardiovascular: Capillary refill < 3 seconds Patient's skin is warm and dry. Respiratory: Airway is patent Respiratory effort is even, unlabored. Respiratory: Breath sounds with wheezes bilaterally. the patient has moderate shortness of breath. GI: Abdomen is round non-distended. : No signs and/or symptoms were reported regarding the genitourinary system. Derm: No signs and/or symptoms reported regarding the dermatologic system. Musculoskeletal: No signs and/or symptoms reported regarding the musculoskeletal system. Historical: - Allergies: 18:59 prasterone (DHEA); ld1 18:59 Stadol; ld1 18:59 Toradol; ld1 18:59 Tramadol HCl; ld1 18:59 Zoloft; ld1 - PMHx: 18:59 Anxiety; Diverticulitis; Hypertension; Migraines; ld1 - PSHx: 18:59 section; ld1 - Immunization history:: Adult Immunizations up to date. - Infectious Disease History:: Denies. - Social history:: Smoking status: Patient denies any tobacco usage or history of. - Family history:: not pertinent. - Hospitalizations: : No recent hospitalization is reported. Screenin:00 [facility] ED Fall Risk Assessment (Adult) History of falling in the last 3 months, kb3 including since admission No falls in past 3 months (0 pts) Confusion or Disorientation No (0 pts) Intoxicated or Sedated No (0 pts) Impaired Gait No (0 pts) Mobility Assist Device Used No (0 pt) Altered Elimination No (0 pt) Score/Fall Risk Level 0 - 2 = Low Risk Oriented to surroundings. Abuse screen: Denies threats or abuse. Denies injuries from another. Nutritional screening: No deficits noted. Tuberculosis screening: No symptoms or risk factors identified. Assessment: 20:00 General: Appears in no apparent distress. comfortable, Behavior is calm, cooperative. kb3 Pain: Complains of pain in chest Pain does not radiate. Pain currently is 4 out of 10 on a pain scale. Quality of pain is described as pressure, Is intermittent, Aggravated by Cough. Respiratory: Reports shortness of breath with cough cough that is productive, Airway is patent Trachea midline Respiratory effort is even, labored, Mildly labored with cough Respiratory pattern is regular, Breath sounds with wheezes the patient has mild shortness of breath. Vital Signs: 18:57 BP 153 / 99; Pulse 97; Resp 18; Temp 99.1(O); Pulse Ox 95% on R/A; Weight 72.57 kg; ld1 Height 5 ft. 1 in. ; Pain 0/10; 20:30 BP 141 / 71; Pulse 85; Resp 20; Pulse Ox 98% ; kb3 18:57 Body Mass Index 30.23 (72.57 kg, 154.94 cm) ld1 18:57 Pain Scale: Adult ld1 ED Course: 18:24 Patient arrived in ED. mr 18:59 Triage completed. ld1 18:59 Arm band placed on right wrist. ld1 19:02 Isaias Jon MD is Attending Physician. rn 19:56 XRAY Chest (1 view) In Process Unspecified. EDMS 20:00 Patient has correct armband on for positive identification. Bed in low position. Call kb3 light in reach. Provided Education on: Breathing treatment, POC. 20:00 No provider procedures requiring assistance completed. Patient did not have IV access kb3 during this emergency room visit. Administered Medications: 20:01 Drug: Levalbuterol Inhalation 1.25 mg Inhalation once Route: Inhalation; kb3 20:30 Follow up: Response: No adverse reaction; Wheezing diminished kb3 20:30 Follow up: Response: No adverse reaction kb3 20:20 Drug: LevOfloxacin PO 500 mg PO once Route: PO; kb3 20:30 Follow up: Response: No adverse reaction kb3 Medication: 20:00 VIS not applicable for this client. kb3 Outcome: 20:07 Discharge ordered by . rn 20:40 Discharged to home ambulatory, kb3 20:40 Condition: stable kb3 20:40 Discharge instructions given to patient, Instructed on discharge instructions, follow up and referral plans. medication usage, Demonstrated understanding of instructions, follow-up care, medications, Prescriptions given X 2, 21:13 Patient left the ED. kb3 Signatures: Dispatcher [employer] EDNJ Annemarie Faustin, Reg Reg mr Isaias Jon MD MD rn Sims, Lauren, RN RN ld1 Lilian Rivera, NED RN kb3 Corrections: (The following items were deleted from the chart) 21:10 21:07 General: Appears in no apparent distress. comfortable, Behavior is calm, kb3 cooperative, kb3 21:10 21:07 Pain: Complains of pain in chest Pain does not radiate. Pain currently is 4 out kb3 of 10 on a pain scale. Quality of pain is described as pressure, Is intermittent, Aggravated by Cough kb3 21:10 21:07 Respiratory: Reports shortness of breath with cough cough that is productive, kb3 Airway is patent Trachea midline Respiratory effort is even, labored, Mildly labored with cough Respiratory pattern is regular, Breath sounds with wheezes the patient has mild shortness of breath kb3
[2025-01-07] MEDS ORDERED: levoFLOXacin 250 MG TAB ONE (20:19)
[2025-01-07 21:21] VITALS: TEMP 99.1
[2025-01-07 21:23] VITALS: BP 141/71; O2SAT 98
== END 2025-01-07 21:13 | disposition home or self-care (01) ==
LOC: ER 18:22
DX: R06.2 Wheezing (principal); R05.9 Cough, unspecified; R06.02 Shortness of breath
CPT/HCPCS: 71045; 99284; J7614

== ENCOUNTER 2025-01-08 23:07 | Observation (INO) | payer OTHER ==
[2025-01-09 00:51] LABS: Absolute Lymphocytes (CBC) 1.6 K/uL (0.7-4.9); Absolute Monocytes 1.3 K/uL (0.1-1.3); Absolute Neutrophil 9.4 K/uL (1.8-8.0); Basophils % 0.1 % (0-1.3); Eosinophils % 0.3 % (0-4.4); Hematocrit 38.8 % (36.0-45.0); Hemoglobin 13.5 g/dL (12.0-15.0); Lymphocytes % 12.8 % (15.3-44.8); MCH 30.3 pg (27.0-35.0); MCHC 34.8 g/dL (32.0-36.0); MPV 7.7 fL (7.6-11.3); Monocytes % 10.3 % (3.3-12.3); Neutrophils % 76.5 % (41.7-73.7); Nucleated Red Blood Cells % 0.1 % (0-0); Platelets 381 thou/uL (152-406); RBC Red Blood Cell Count 4.46 M/uL (3.86-4.86); Red Cell Distribution Width 13.8 % (12.1-15.2)
[2025-01-09] MEDS ORDERED: METOCLOPRAMIDE 10 MG/2mL INJ ONE (00:56)
[2025-01-09] MEDS ORDERED: NA CHLORIDE 0.9% 1,000 ML ONE ×2 (00:56→05:08)
[2025-01-09] MEDS ORDERED: DIPHENHYDRAMINE 50 MG/ML VIAL ONE (00:56)
[2025-01-09] MEDS ORDERED: Magnesium Sulfate 2gm IVPB 2 G/50 ML BAG IV ONE (00:57)
[2025-01-09 00:59] LABS: Anion Gap 10.2 mEq/L (5.0-15.0); Troponin High Sensitivity 3.6 pg/mL (<58.9)
[2025-01-09 01:01] LABS: Potassium 2.2 mEq/L (3.5-5.1)
[2025-01-09] MEDS ORDERED: POTASSIUM CL SA 10 MEQ TAB PO ONE (01:57)
[2025-01-09] MEDS ORDERED: KCL 20 MEQ/100 mL IVPB 100 ML IV ONE ×3 (01:58→11:22)
--- NOTE | 2025-01-09 04:51 | EDPHYS ---
Physician Documentation [facility] Name: Lorie Beal Age: 54 yrs Sex: Female : 1970 Arrival Date: 01/08/2025 Time: 23:07 Bed 14 Private MD: ED Physician Dean Webb HPI: 01/09 00:04 This 54 yrs old Female presents to ER via Ambulatory with complaints of ec2 Vomiting, Passed Out Prior To Arrival. 00:04 Patient arrives today for evaluation of nausea and vomiting along with generalized ec2 abdominal pain, diarrhea as well as lightheadedness. Patient reports that she was diagnosed with COVID 1 week ago. States that she been feeling unwell. Patient reports decreased p.o. intake which progressed into nausea and vomiting today.. 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 - Infectious Disease History:: Denies. - Social history:: Smoking status: Patient denies any tobacco usage or history of. ROS: 01/09 00:04 Constitutional: as per hpi ec2 Exam: 00:04 Constitutional: GEN: NAD Head: atraumatic Eyes: EOMI Ears: External ears are ec2 normal. CV: regular rate LUNGS: no respiratory distress ABD: non-distended, soft, no guarding or rigid SKIN: no evidence of rashes MSK: no evidence of trauma Vital Signs: 01/08 23:56 BP 129 / 80; Pulse 97; Resp 18; Temp 98.3; Pulse Ox 97% ; Weight 72.57 kg; Height 5 ft. cp4 1 in. ; Pain 8/10; 01/09 01:13 BP 134 / 88; Pulse 93; Resp 18; Pulse Ox 99% ; cp4 02:16 BP 131 / 80; Pulse 95; Resp 18; Pulse Ox 96% ; cp4 03:38 BP 133 / 87; Pulse 90; Resp 18; Pulse Ox 97% ; cp4 05:34 BP 126 / 81; Pulse 88; Resp 18; Pulse Ox 97% ; cp4 01/08 23:56 Body Mass Index 30.23 (72.57 kg, 154.94 cm) cp4 01/08 23:56 Pain Scale: Adult cp4 MDM: 01/08 23:31 Medical Screening Exam initiated ec2 01/09 00:05 Data reviewed: vital signs, nurses notes. ED course: Patient arrives today for ec2 evaluation of nausea and vomiting. Examination yields abdominal findings as above. Will obtain lab work, urine studies and treat the patient's symptoms. DDx includes gastroenteritis. Lower suspicion for process such as appendicitis or diverticulitis given reassuring abdominal examination, doubt pneumonia given lack of respiratory symptoms. 00:13 ED course: EKG independently reviewed and interpreted by me, shows normal sinus rhythm, ec2 rate 95, no acute ST segment elevations, intervals are pertinent for QTc of 5 6 today. Will give the patient magnesium.. 01:03 ED course: Metabolic profile shows hyponatremia with a sodium of 128, hypokalemia with ec2 potassium of 2.2. Will supplement patient's potassium. This to be consistent with patient's QTc prolongation. Will also obtain CT imaging.. 04:48 ED course: Will admit for hypokalemia, hyponatremia, possible pneumonia causing the ec2 patient's nausea and vomiting, QTc prolongation.. 01/08 23:11 Order name: Basic Metabolic Panel; Complete Time: 01:02 ec2 01/08 23:11 Order name: CBC with Diff; Complete Time: 01:02 ec2 01/08 23:11 Order name: Troponin HS; Complete Time: 01:02 ec2 01/09 04:47 Order name: Lactate w/ 2H reflex if indic.; Complete Time: 11:46 ec2 01/09 04:47 Order name: Blood Culture Adult (2) ec2 01/09 05:26 Order name: Urinalysis w/ reflexes EDMS 01/09 05:26 Order name: CBC with Automated Diff EDMS 01/09 05:26 Order name: CBC with Automated Diff EDMS 01/09 05:26 Order name: Comprehensive Metabolic Panel EDMS 01/09 05:26 Order name: Comprehensive Metabolic Panel EDMS 01/09 05:27 Order name: Magnesium; Complete Time: 11:46 EDMS 01/09 05:27 Order name: Phosphorus; Complete Time: 11:46 EDMS 01/09 05:27 Order name: Basic Metabolic Panel; Complete Time: 11:46 EDMS 01/09 05:39 Order name: COVID-19 Ag + Flu A+B Ag; Complete Time: 11:46 EDMS 01/09 11:59 Order name: Magnesium EDMS 01/08 23:11 Order name: XRAY Chest (1 view); Complete Time: 11:46 ec2 01/09 01:03 Order name: CT Abd/Pelvis - Without Contrast; Complete Time: 11:46 ec2 01/08 23:11 Order name: Cardiac monitoring; Complete Time: 00:04 ec2 01/08 23:11 Order name: EKG - Nurse/Tech; Complete Time: 00:13 ec2 01/08 23:11 Order name: IV Saline Lock; Complete Time: 02:08 ec2 01/08 23:11 Order name: Labs collected and sent; Complete Time: 01:03 ec2 01/08 23:11 Order name: O2 Per Protocol; Complete Time: 00:04 ec2 01/08 23:11 Order name: O2 Sat Monitoring; Complete Time: 00:04 ec2 Administered Medications: 01:55 Drug: NS 0.9% IV 1000 ml IV at 1000 ml once; to be given as a bolus over 60 minutes cp4 Route: IV; Rate: 1000 ml; Site: left forearm; 05:18 Follow up: IV Status: Completed infusion cp4 01:55 Drug: metoCLOPramide IVP 10 mg IVP once; over 1 to 2 minutes Route: IVP; Site: left cp4 forearm; 03:08 Follow up: Response: No adverse reaction cp4 01:55 Drug: diphenhydrAMINE IVP 25 mg IVP once Route: IVP; Site: left forearm; cp4 03:08 Follow up: Response: No adverse reaction cp4 01:55 Drug: Magnesium Sulfate IVPB 2 grams IVPB once over 30 mins Route: IVPB; Infused Over: cp4 30 mins; Site: left forearm; 03:08 Follow up: Response: No adverse reaction; IV Status: Completed infusion cp4 03:07 Drug: Potassium Chloride PO 40 mEq PO once Route: PO; cp4 03:08 Follow up: Response: No adverse reaction cp4 03:08 Drug: Potassium Chloride IV 20 mEq IV at calculated rate once; administer over 1-2 cp4 hours Route: IV; Rate: calculated rate; Site: left forearm; 05:29 Follow up: IV Status: Completed infusion cp4 05:18 Drug: Rocephin IV 1 grams IV at bolus once; Given slow IV push per pharmacy cp4 instructions Route: IV; Rate: bolus; Site: left forearm; 05:18 Follow up: IV Status: Completed infusion cp4 05:18 Drug: NS 0.9% IV 1000 ml IV at 1 bolus Per protocol; to be given as a bolus over 60 cp4 minutes Route: IV; Rate: 1 bolus; Site: left forearm; Disposition Summary: 01/09/25 04:51 Hospitalization Ordered Notes: Hospitalization Status: Inpatient Admission ec2 Provider: Stanley Han ec2 Condition: Stable ec2 Problem: an acute exacerbation ec2 Symptoms: have improved ec2 Bed/Room Type: Standard ec2 Location: Telemetry/MedSurg (Inpatient)(01/09/25 11:43) ty Room Assignment: [facility](01/09/25 11:43) ty Diagnosis - Hyponatremia, Hypokalemia, qtc prolongation, nausea and vomiting ec2 Forms: - Medication Reconciliation Form ec2 - SBAR form ec2 - Leadership Thank You Letter ec2 Critical care time excluding procedures: 04:49 Critical care time: Bedside Care: 30 minutes, Consultation: 5 minutes. Total time: 35 ec2 minutes Signatures: Dispatcher [employer] EDMS Marlo Blue, JELLY-C CHIEF VENDOR QUALITY-Cla1 Vira Lyman RN RN 3 Dean Webb MD MD 2 Michaela Hodge 4 Antonio Hernandez ty Corrections: (The following items were deleted from the chart) 01/08 23:12 23:12 BASIC METABOLIC PANEL+C.LAB.BRZ ordered. EDMS EDMS 23:12 23:12 CBC+H.LAB.BRZ ordered. EDMS EDMS 23:12 23:12 Troponin High Sensitivity+C.LAB.BRZ ordered. EDMS EDMS 23:12 23:12 Chest Single View+RAD.RAD.BRZ ordered. EDMS EDMS 01/09 01:03 01:03 Abdomen Pelvis Wo Con+CT.RAD.BRZ ordered. EDME EDMS 04:48 04:48 LACTATE+C.LAB.BRZ ordered. EDMS EDMS 04:48 04:48 BLOOD CULTURE*+BA.LAB.BRZ ordered. EDMS EDMS 05:24 04:51 Telemetry/MedSurg (Inpatient) ec2 lg3 05:24 04:51 ec2 lg3 11:43 05:24 [facility] ER HOLD lg3 ty 11:43 05:24 ERHOLD- lg3 ty
--- NOTE | 2025-01-09 04:51 | ER ---
Nurse's Notes [facility] Name: Lorie Beal Age: 54 yrs Sex: Female : 1970 Arrival Date: 01/08/2025 Time: 23:07 Bed 14 Private MD: Diagnosis: Hyponatremia, Hypokalemia, qtc prolongation, nausea and vomiting Presentation: 01/08 23:56 Chief complaint: Patient states: nausea and vomiting that started yesterday. Patient cp4 states she was here yesterday and diagnosed with Covid last Friday. Coronavirus screen: Client denies travel out of the [place] in the last 14 days. Ebola Screen: Patient negative for fever greater than or equal to 101.5 degrees Fahrenheit, and additional compatible Ebola Virus Disease symptoms Patient denies exposure to infectious person. Patient denies travel to an Ebola-affected area in the 21 days before illness onset. No symptoms or risks identified at this time. Initial Sepsis Screen: Does the patient meet any 2 criteria? HR > 90 bpm. No. Patient's initial sepsis screen is negative. Does the patient have a suspected source of infection? No. Patient's initial sepsis screen is negative. Risk Assessment: Do you want to hurt yourself or someone else? Patient reports no desire to harm self or others. Onset of symptoms was January 07, 2025. 23:56 Method Of Arrival: Ambulatory 4 23:56 Acuity: KATELYN 3 cp4 Triage Assessment: 23:58 General: Appears in no apparent distress. comfortable, Behavior is calm, cooperative, cp4 appropriate for age. Pain: Complains of pain in chest Pain does not radiate. Pain currently is 8 out of 10 on a pain scale. EENT: No signs and/or symptoms were reported regarding the EENT system. Neuro: Level of Consciousness is awake, alert, obeys commands, Oriented to person, place, time, situation. Cardiovascular: Patient's skin is warm and dry. Respiratory: Airway is patent Respiratory effort is even, unlabored. GI: Abdomen is round non-distended, Bowel sounds present X 4 quads. Abd is soft and non tender X 4 quads. Reports nausea, vomiting. : No signs and/or symptoms were reported regarding the genitourinary system. Derm: No signs and/or symptoms reported regarding the dermatologic system. Musculoskeletal: No signs and/or symptoms reported regarding the musculoskeletal system. 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 - Infectious Disease History:: Denies. - Social history:: Smoking status: Patient denies any tobacco usage or history of. Screenin/16 00:00 [facility] ED Fall Risk Assessment (Adult) History of falling in the last 3 months, cp4 including since admission No falls in past 3 months (0 pts) Confusion or Disorientation No (0 pts) Intoxicated or Sedated No (0 pts) Impaired Gait No (0 pts) Mobility Assist Device Used No (0 pt) Altered Elimination No (0 pt) Score/Fall Risk Level 0 - 2 = Low Risk Oriented to surroundings, Maintained a safe environment, Assessed \T\ reinforced patient's understanding of fall precautions, Hourly rounding (assess needs \T\ fall precautionary measures) done. Abuse screen: Denies threats or abuse. Denies injuries from another. Nutritional screening: No deficits noted. Tuberculosis screening: No symptoms or risk factors identified. Assessment: 00:00 Reassessment: No changes from previously documented assessment. cp4 13:00 Reassessment: WARM COMPRESS APPLIED TO LEFT AC INFILTRATION SITE WITH IV LEFT IN PLACE kj2 ADVISED BY CHARGE NURSE AND PHARMACIST. 13:25 Reassessment: REPORT GIVEN TO NED Menjivar TO CHANGE TO COLD COMPRESS UPON ARRIVAL TO THE kj2 ROOM. Vital Signs: 01/08 23:56 BP 129 / 80; Pulse 97; Resp 18; Temp 98.3; Pulse Ox 97% ; Weight 72.57 kg; Height 5 ft. cp4 1 in. ; Pain 8/10; 01/09 01:13 BP 134 / 88; Pulse 93; Resp 18; Pulse Ox 99% ; cp4 02:16 BP 131 / 80; Pulse 95; Resp 18; Pulse Ox 96% ; cp4 03:38 BP 133 / 87; Pulse 90; Resp 18; Pulse Ox 97% ; cp4 05:34 BP 126 / 81; Pulse 88; Resp 18; Pulse Ox 97% ; cp4 01/08 23:56 Body Mass Index 30.23 (72.57 kg, 154.94 cm) cp4 01/08 23:56 Pain Scale: Adult cp4 ED Course: 01/08 23:09 Patient arrived in ED. im 23:11 Dean Webb MD is Attending Physician. ec2 23:42 XRAY Chest (1 view) In Process Unspecified. EDMS 23:58 Triage completed. cp4 23:58 Arm band placed on right wrist. Patient placed in waiting room. EKG completed in 4 triage. Results shown to MD. 03 00:00 Bed in low position. Call light in reach. Side rails up X 1. cp4 00:00 No provider procedures requiring assistance completed. cp4 00:04 Michaela Hodge is Primary Nurse. cp4 01:54 Inserted saline lock: 20 gauge in left forearm, using aseptic technique. Flushed with lg3 10 mL NS. 02:20 CT Abd/Pelvis - Without Contrast In Process Unspecified. EDMS 04:51 Stanley Han MD is Hospitalizing Provider. ec2 07:00 Provided Education on: admissiion. cp4 07:00 Patient admitted, IV remains in place. cp4 12:55 Accessed peripheral vein via ultrasound, utilizing dynamic ultrasound technique Clean \T\ hb dry. Dressing intact. Good blood return. Flushes easily. 20G RFA. Administered Medications: 01:55 Drug: NS 0.9% IV 1000 ml IV at 1000 ml once; to be given as a bolus over 60 minutes cp4 Route: IV; Rate: 1000 ml; Site: left forearm; 05:18 Follow up: IV Status: Completed infusion cp4 01:55 Drug: metoCLOPramide IVP 10 mg IVP once; over 1 to 2 minutes Route: IVP; Site: left cp4 forearm; 03:08 Follow up: Response: No adverse reaction cp4 01:55 Drug: diphenhydrAMINE IVP 25 mg IVP once Route: IVP; Site: left forearm; cp4 03:08 Follow up: Response: No adverse reaction cp4 01:55 Drug: Magnesium Sulfate IVPB 2 grams IVPB once over 30 mins Route: IVPB; Infused Over: cp4 30 mins; Site: left forearm; 03:08 Follow up: Response: No adverse reaction; IV Status: Completed infusion cp4 03:07 Drug: Potassium Chloride PO 40 mEq PO once Route: PO; cp4 03:08 Follow up: Response: No adverse reaction cp4 03:08 Drug: Potassium Chloride IV 20 mEq IV at calculated rate once; administer over 1-2 cp4 hours Route: IV; Rate: calculated rate; Site: left forearm; 05:29 Follow up: IV Status: Completed infusion cp4 05:18 Drug: Rocephin IV 1 grams IV at bolus once; Given slow IV push per pharmacy cp4 instructions Route: IV; Rate: bolus; Site: left forearm; 05:18 Follow up: IV Status: Completed infusion cp4 05:18 Drug: NS 0.9% IV 1000 ml IV at 1 bolus Per protocol; to be given as a bolus over 60 cp4 minutes Route: IV; Rate: 1 bolus; Site: left forearm; Medication: 00:00 VIS not applicable for this client. cp4 Outcome: 04:51 Decision to Hospitalize by Provider. ec2 07:00 Admitted to ER Hold. Please see [facility] for further documentation. cp4 07:00 Condition: stable 07:00 Instructed on the need for admit, 13:42 Patient left the ED. kj2 Signatures: Dispatcher [employer] Marah Orozco, NED MARINO Vira Lyman RN RN lg3 Nikki Carrasquillo Edwin, MD MD ec2 Michaela Hodge 4 Sandra Duncan RN RN kj2 Corrections: (The following items were deleted from the chart) 05:13 05:12 Provided Education on: vaginal bleeding. cp4 cp4
[2025-01-09] MEDS ORDERED: CEFTRIAXONE 1000 MG/VIAL ONE (05:08)
[2025-01-09] MEDS ORDERED: ONDANSETRON 4 MG/2 ML VIAL IV PRN (05:21)
--- NOTE | 2025-01-09 05:21 | P.HP ---
Certification for Inpatient Patient admitted to: Inpatient With expected LOS: >2 Midnights Practitioner: I am a practitioner with admitting privileges, knowledge of patient current condition, hospital course, and medical plan of care. Services: Services provided to patient in accordance with Admission requirements found in Title 42 Section 412.3 of the Code of Federal Regulations Patient History Date of Service: 01/09/25 Reason for admission: Intractable Nausea and vomiting History of Present Illness: 54 yrs old Female with past medical history of anxiety, dive rticulitis, hypertension, migraine who was brought to ER with intractable nausea and vomiting and syncopal episode just prior to came into ER. Insidious in onset. Patient arrives today for evaluation of nausea and vomiting along with generalized abdominal pain, diarrhea as well as lightheadedness. Patient reports that she was diagnosed with COVID 1 week ago. States that she been feeling unwell. Patient reports decreased p.o. intake which progressed into nausea and vomiting today. Patient was assessed in the ER and was admitted for hypokalemia and hyponatremia and dehydration.. Allergies calcium phosphate [From DHEA] Allergy (Unverified 02/12/17 11:00) Unknown ondansetron [From Zofran (as hydrochloride)] Allergy (Unverified 03/19/16 11:42) Unknown butorphanol tartrate [From Stadol] Adverse Reaction (Intermediate, Verified 01/15/12 15:17) Shortness of breath calcium carbonate [From DHEA] Adverse Reaction (Intermediate, Verified 01/15/12 15:17) Shortness of breath ketorolac tromethamine [From Toradol] Adverse Reaction (Intermediate, Verified 01/15/12 15:16) Shortness of breath prasterone (DHEA) [From DHEA] Adverse Reaction (Intermediate, Verified 01/15/12 15:17) Shortness of breath sertraline HCl [From Zoloft] Adverse Reaction (Intermediate, Verified 01/15/12 15:16) Shortness of breath D.H.E.45 Allergy (Uncoded 10/18/14 14:54) Unknown Zofran (as Allergy (Uncoded 06/17/16 12:13) Unknown Zofran (as h Allergy (Uncoded 05/06/16 11:51) Unknown Zofran (as hy Allergy (Uncoded 04/11/16 10:46) Unknown Zofran (as hydrochlo Allergy (Uncoded 01/08/16 17:11) Unknown Home medications list reviewed: Yes Home Medications: PARoxetine HCL [Paxil] 1 tab PO DAILY 10/07/15 Carvedilol [Coreg] 25 mg PO DAILY 01/09/25 Lisinopril/Hydrochlorothiazide [Lisinopril-Hctz 20-12.5 mg Tab] 1 tab DAILY 01/09/25 - Past Medical/Surgical History Diabetic: No Past Medical History: Reviewed- Non-Contributory -: Migraines -: Depression -: HTN Past Surgical History: Reviewed- Non-Contributory -: -: Cholecystectomy - Family History Family History: Reviewed- Non-Contributory - Family History Mother -: Heart disease - Social History Smoking Status: Never smoker Alcohol use: Yes CD- Drugs: No Caffeine use: Yes Review of Systems 10-point ROS is otherwise unremarkable Physical Examination - Physical Exam General: Alert, Oriented x3 HEENT: Atraumatic, Normocephalic Neck: Supple Respiratory: Clear to auscultation bilaterally, Normal air movement Cardiovascular: Regular rate/rhythm, Normal S1 S2 Capillary refill: <2 Seconds Gastrointestinal: Soft and benign, W/out hepatosplenomegaly, Tenderness Musculoskeletal: No clubbing, No swelling Integumentary: No rashes, No breakdown Neurological: Normal speech, Normal strength at 5/5 x4 extr, Cranial nerves 3-12 intact Lymphatics: No axilla or inguinal lymphadenopathy - Studies Laboratory Data (last 24 hrs) 01/09/25 01/09/25 00:21 00:21 WBC 12.30 H Hgb 13.5 Hct 38.8 Plt Count 381 Sodium 128 L Potassium 2.2 L* BUN 11 Creatinine 1.18 H Glucose 104 Assessment and Plan - Plan Intractable nausea and vomiting Recent COVID 19 Dehydration Hypokalemia Hyponatremia Hypertension Leukocytosis Plan Will monitor telemetry IV hydration Potassium replacement Will monitor electrolytes and replace accordingly Continue home medications and titrate as needed Will get a COVID-19 test Will get a UDS as well Zofran as needed GI/DVT prophylaxis Advanced directive full code Discharge Plan: Home Plan to discharge in: 48 Hours - Advance Directives Does patient have a Living Will: No Does patient have a Durable POA for Healthcare: No - Code Status/Comfort Care Code Status: Full Code Time Spent Managing Pts Care (In Minutes): 48
[2025-01-09] MEDS: NS KCL 20MEQ 20 MEQ/1,000 ML BAG IV SCH (06:00)
[2025-01-09 06:33] LABS: Magnesium 1.9 mg/dL (1.6-2.4); Phosphorus 2.8 mg/dL (2.5-4.9)
[2025-01-09 06:37] VITALS: BMI 30.2
--- NOTE | 2025-01-09 06:42 | RAD REPORT ---
EXAM DESCRIPTION: Chest Single View CLINICAL HISTORY: COUGH TECHNIQUE: AP chest COMPARISON: January 07 FINDINGS: CHEST: Heart: The cardiomediastinal silhouette is within normal limits. Lungs: No focal consolidation. Mediastinum: Unremarkable Pleura: No appreciable effusion. No pneumothorax. Bones: Intact IMPRESSION: No acute cardiopulmonary disease. Electronically signed by: Jhoan Correia MD 01/09/2025 12:20 AM CDT RP Due to temporary technical issues with the PACS/[employer] reporting system, reports are being tenzin d by the in-house radiologist without review as a courtesy to ensure prompt reporting. The interpreting radiologist is fully responsible for the content of the report. Transcribed Date/Time: 01/09/2025 6:41 AM
[2025-01-09 06:43] LABS: Anion Gap 10.3 mEq/L (5.0-15.0)
[2025-01-09 06:43] LABS: Influenza A Ag Negative; Influenza B Ag Negative
[2025-01-09] MEDS ORDERED: NS KCL 20MEQ 1,000 ML IV ONE (06:43)
[2025-01-09 06:44] LABS: Potassium 2.3 mEq/L (3.5-5.1)
[2025-01-09 06:45] LABS: SARS-CoV-2 Antigen Rapid Res Positive (Negative)
--- NOTE | 2025-01-09 06:59 | RAD REPORT ---
CLINICAL HISTORY: Abdominal pain. COMPARISON: None. TECHNIQUE: CT ABDOMEN PELVIS WITHOUT IV CONTRAST on 01/09/2025 1:03 AM CDT This exam was performed according to our departmental dose-optimization program, which includes autom ated exposure control, adjustment of the mA and/or kV according to patient size and/or use of iterative reconstruction technique. FINDINGS: There are minimal groundglass opacities in the lower lobes as well as the lingula and right middle lo be. Abdomen: The liver is normal in appearance. There is no biliary dilatation. Cholecystectomy was perfo rmed. The pancreas and spleen are normal in appearance. The adrenal glands and kidneys are unremarkable. Abdominal aorta is normal in course and caliber without aneurysm. There is no free air. There is no r etroperitoneal adenopathy. Pelvis: There is no bowel obstruction. Urinary bladder is unremarkable. There is no free fluid. Uteru s is normal in size. Appendix is normal. Skeleton: There are no acute osseous findings. No suspicious bony lesions. IMPRESSION: No acute inflammatory process in the abdomen or pelvis. Possible mild areas of pneumonia within the lower lungs. Electronically signed by: Alejo Short MD 01/09/2025 04:36 AM CDT RP Due to temporary technical issues with the PACS/[employer] reporting system, reports are being tenzin d by the in-house radiologist without review as a courtesy to ensure prompt reporting the interpreting radiologist is fully responsible for the content of the report. Transcribed Date/Time: 01/09/2025 6:58 AM
[2025-01-09] MEDS: KCL 20 MEQ/100 mL IVPB 20 MEQ/100 ML BAG IV SCH (08:00)
--- NOTE | 2025-01-09 10:01 | P.PN ---
Date of Service: 01/09/25 Subjective: Symptoms are improving, no further episodes of nausea and vomiting since last night Diarrhea stopped a couple days ago Feeling a bit better so far today, tolerating diet ROS: 10 point ROS as noted above, otherwise negative Physical exam GEN: Alert, oriented, NAD HEENT: Normal conjunctiva, sclera anicteric CV: Regular rate and rhythm, no edema Pulm: Nonlabored respirations on room air ABD: Soft, nontender, nondistended MSK: No joint tenderness Integumentary: No rashes Neuro: Normal speech, normal affect Vitals reviewed Assessment: Intractable nausea and vomiting Diarrhea Severe hypokalemia Hyponatremia COVID-19 viral illness History of anxiety Hypertension Migraines Plan: Intractable nausea and vomiting Diarrhea Severe hypokalemia Hyponatremia COVID-19 viral illness Nausea vomiting and diarrhea since around the 12th of this month Symptoms are improving so far Still very hypokalemic, sodium improving Replacement protocols in place and ongoing Repeat chemistry/potassium per protocol Overall slowly improving History of anxiety Hypertension Migraines Continue home medications when verified DVT PPX: Lovenox Code status: Spring Clipper Spent Managing Pts Care (In Minutes): 35
[2025-01-09] MEDS ORDERED: MELATONIN 5 MG TABLET PO PRN (10:02)
[2025-01-09] MEDS ORDERED: MORPHINE 2 MG/ML SYR IV PRN (10:02)
[2025-01-09] MEDS ORDERED: FLU (Fluarix Triv) TS24-25(6MOS UP)/PF 45 MCG/0.5 ML Syringe IM ONE (12:00)
[2025-01-09 13:49] VITALS: O2SAT 97
[2025-01-09 20:28] LABS: Magnesium 1.8 mg/dL (1.6-2.4)
[2025-01-10] MEDS: ACETAMINOPHEN 325 MG TABLET PO PRN (04:44)
[2025-01-10 05:09] LABS: Absolute Lymphocytes (CBC) 2.9 K/uL (0.7-4.9); Absolute Monocytes 0.8 K/uL (0.1-1.3); Absolute Neutrophil 4.8 K/uL (1.8-8.0); Basophils % 0.2 % (0-1.3); Eosinophils % 0.3 % (0-4.4); Hemoglobin 10.8 g/dL (12.0-15.0); MCH 31.1 pg (27.0-35.0); MCHC 34.9 g/dL (32.0-36.0); MPV 7.3 fL (7.6-11.3); Monocytes % 9.9 % (3.3-12.3); Neutrophils % 55.6 % (41.7-73.7); Platelets 288 thou/uL (152-406); RBC Red Blood Cell Count 3.48 M/uL (3.86-4.86); Red Cell Distribution Width 14.1 % (12.1-15.2)
[2025-01-10 05:23] LABS: AST/SGOT 16 U/L (15-37); Albumin 2.9 g/dL (3.4-5.0); Albumin/Globulin Ratio 0.9 (1.1-1.8); Alkaline Phosphatase 92 U/L (45-117); Anion Gap 10.4 mEq/L (5.0-15.0); BUN Blood Urea Nitrogen 8 mg/dL (7-18); Bicarbonate 22 mEq/L (21-32); Bilirubin Total 0.4 mg/dL (0.2-1.0); Globulin 3.4 g/dL (2.3-3.5); Glomerular Filtration Rate 80 ml/min (=/>90); Glucose Level 91 mg/dL (74-106); Magnesium 1.6 mg/dL (1.6-2.4); Phosphorus 2.1 mg/dL (2.5-4.9); Potassium 3.4 mEq/L (3.5-5.1); Protein, Total 6.3 g/dL (6.4-8.2); Sodium Level 139 mEq/L (136-145)
[2025-01-10 05:26] LABS: ALT/SGPT < 14 U/L (13-56)
[2025-01-10] MEDS: POTASSIUM CL SA 10 MEQ TAB PO ONE (05:45)
[2025-01-10] MEDS: MAGNESIUM SULFATE 1 gm IVPB 1 GM/100 ML BAG IV ONE (08:59)
[2025-01-10] MEDS: carvediloL 25 MG TAB PO SCH (08:59)
[2025-01-10] MEDS: PARoxetine HCL 10 MG TAB PO SCH (08:59)
[2025-01-10] MEDS: FLU (Fluarix Triv) TS24-25(6MOS UP)/PF 45 MCG/0.5 ML Syringe IM ONE (09:23)
--- NOTE | 2025-01-10 10:31 | P.DS ---
Admission Date: 01/09/25 Discharge Date: 01/10/25 Disposition: ROUTINE DISCHARGE Discharge Condition: GOOD Reason for Admission: Intractable Nausea and vomiting Brief History of Present Illness: 54 yrs old Female with past medical history of anxiety, diverticulitis, hypertension, migraine who was brought to ER with intractable nausea and vomiting and syncopal episode just prior to came into ER. Insidious in onset. Patient arrives today for evaluation of nausea and vomiting along with generalized abdominal pain, diarrhea as well as lightheadedness. Patient reports that she was diagnosed with COVID 1 week ago. States that she been feeling unwell. Patient reports decreased p.o. intake which progressed into nausea and vomiting today. Patient was assessed in the ER and was admitted for hypokalemia and hyponatremia and dehydration.. Hospital Course: Assessment: Intractable nausea and vomiting Diarrhea Severe hypokalemia Hyponatremia COVID-19 viral illness History of anxiety Hypertension Migraines Patient was admitted to the hospital for intractable nausea and vomiting with severe hypokalemia. Her initial potassium was 2.2 sodium was 128, she reports that she had been having nausea vomiting and diarrhea likely secondary to COVID viral infection prior to hospitalization. She was given IV fluids, electrolytes were repleted per protocol and she had rapid improvement in her symptoms, she has been tolerating a regular diet and this morning her potassium is 3.4 with a sodium of 139. Upon reviewing her home medications she appears to take lisinopril with hydrochlorothiazide, counseled to stop this medication for now given her electrolyte derangements. Prescription for lisinopril without the hydrochlorothiazide sent to her [facility] in [place], she should follow-up with her primary care doctor in the next 1 to 2 weeks to further discuss whether the hydrochlorothiazide should be continued or if there is no other option more suitable for her given this recent hyponatremia and hypokalemia that she experienced. Stop taking your lisinopril/hydrochlorothiazide for now Prescription for lisinopril hydrochlorothiazide sent to your pharmacy [facility] in [place] May return to work Friday 01/12 Follow-up with your primary care doctor 1 to 2 weeks Vital Signs/Physical Exam: Temp Pulse Resp BP Pulse Ox 98.0 F 75 16 117/77 99 01/10/25 07:54 01/10/25 07:54 01/10/25 07:54 01/10/25 07:54 01/10/25 07:54 General: Alert, In no apparent distress, Oriented x3 HEENT: Atraumatic, PERRLA Neck: Supple, JVD not distended Respiratory: Clear to auscultation bilaterally, Normal air movement Cardiovascular: Regular rate/rhythm, Normal S1 S2 Gastrointestinal: Normal bowel sounds, No tenderness Musculoskeletal: No tenderness Integumentary: No rashes Neurological: Normal speech, Normal affect Laboratory Data at Discharge: WBC 8.60 thou/uL (4.3-10.9) 01/10/25 04:48 Hgb 10.8 g/dL (12.0-15.0) L 01/10/25 04:48 Hct 31.0 % (36.0-45.0) L 01/10/25 04:48 Plt Count 288 thou/uL (152-406) 01/10/25 04:48 Sodium 139 mEq/L (136-145) 01/10/25 04:48 Potassium 3.4 mEq/L (3.5-5.1) L D 01/10/25 04:48 BUN 8 mg/dL (7-18) 01/10/25 04:48 Creatinine 0.87 mg/dL (0.55-1.02) 01/10/25 04:48 Glucose 91 mg/dL (74-106) 01/10/25 04:48 Phosphorus 2.1 mg/dL (2.5-4.9) L 01/10/25 04:48 Magnesium 1.6 mg/dL (1.6-2.4) 01/10/25 04:48 Total Bilirubin 0.4 mg/dL (0.2-1.0) 01/10/25 04:48 AST 16 U/L (15-37) 01/10/25 04:48 ALT < 14 U/L (13-56) 01/10/25 04:48 Alkaline Phosphatase 92 U/L (45-117) 01/10/25 04:48 Home Medications: PARoxetine HCL [Paxil] 1 tab PO DAILY 10/07/15 Carvedilol [Coreg] 25 mg PO DAILY 01/09/25 lisinopriL [Lisinopril] 20 mg PO DAILY #30 tab 01/10/25 New Medications: lisinopriL [Lisinopril] 20 mg PO DAILY #30 tab Physician Discharge Instructions: Patient was admitted to the hospital for intractable nausea and vomiting with severe hypokalemia. Her initial potassium was 2.2 sodium was 128, she reports that she had been having nausea vomiting and diarrhea likely secondary to COVID viral infection prior to hospitalization. She was given IV fluids, electrolytes were repleted per protocol and she had rapid improvement in her symptoms, she has been tolerating a regular diet and th is morning her potassium is 3.4 with a sodium of 139. Upon reviewing her home medications she appears to take lisinopril with hydrochlorothiazide, counseled to stop this medication for now given her electrolyte derangements. Prescription for lisinopril without the hydrochlorothiazide sent to her pharmacy [facility] in [place], she should follow-up with her primary care doctor in the next 1 to 2 weeks to further discuss whether the hydrochlorothiazide should be continued or if there is no other option more suitable for her given this recent hyponatremia and hypokalemia that she experienced. Stop taking your lisinopril/hydrochlorothiazide for now Prescription for lisinopril hydrochlorothiazide sent to your pharmacy [facility] in [place] May return to work Friday 01/12 Follow-up with your primary care doctor 1 to 2 weeks Diet: Regular Activity: Ad leslee Followup: Rand Cueva FNP [Primary Care Provider] - 1-2 Weeks Time spent managing pt's care (in minutes): 45
[2025-01-10 11:11] VITALS: BP 118/71; TEMP 97.6
--- NOTE | 2025-01-12 12:43 | EKG ---
Test Date: 2025-01-09 Test Time: 00:09:05 Laser Engraver: IGNACIA MEASUREMENT RESULTS: Intervals: Rate: 95 PA: 144 QRSD: 72 QT: 452 QTc: 568 [place]: P: 76 PA: 144 QRS: 36 T: 61 INTERPRETIVE STATEMENTS: Normal sinus rhythm Low voltage QRS Nonspecific T wave abnormality Prolonged QT Abnormal ECG Compared to ECG 10/25/2023 01:16:52 Low QRS voltage now present Prolonged QT interval now present T-wave abnormality still present Electronically Signed On 01-12-25 12:30:59 CDT by Nathaniel Concepcion
== END 2025-01-10 17:00 | disposition home or self-care (01) ==
LOC: ER 23:07 → ERHOLD 01-09 05:21 → 2ND 01-09 12:38
PROVIDERS: ADMIT Family Medicine; ATTEND Hospitalist
DX: R11.2 Nausea with vomiting, unspecified (principal); E87.6 Hypokalemia; E87.1 Hypo-osmolality and hyponatremia; E86.0 Dehydration; D72.829 Elevated white blood cell count, unspecified; U07.1 COVID-19; F41.9 Anxiety disorder, unspecified; K57.92 Diverticulitis of intestine, part unspecified, without perforation or abscess without bleeding; I10 Essential (primary) hypertension; G43.909 Migraine, unspecified, not intractable, without status migrainosus; R55 Syncope and collapse; R10.9 Unspecified abdominal pain; R19.7 Diarrhea, unspecified; R42 Dizziness and giddiness; Z88.8 Allergy status to other drugs, medicaments and biological substances
CPT/HCPCS: 96365; 96367; 93005; 87040 ×2; 85025 ×2; 80048 ×3; 36415 ×2; 83735 ×4; 84100 ×2; 83605; 84484; 80053; 74176; 71045; 90656; 96375; 99285; 96366; 87428; J3480 ×5; J3475 ×2; J2765; J1200; J7030 ×2; J0696; G0378 ×4